=== PATIENT | male | born 1950 | race Caucasian/White ===

== ENCOUNTER 2020-08-05 15:43 | Outpatient (REF) | payer MEDICARE, SELFPAY ==
[2020-08-10 22:22] LABS: Stone Source KIDNEY STONE
== END 2020-08-05 15:44 | disposition home or self-care (01) ==
LOC: HO.LAB 15:43
PROVIDERS: PCP Internal Medicine; Visit Provider Internal Medicine Hypertension Specialist
DX: I13.10 Hypertensive heart and chronic kidney disease without heart failure, with stage 1 through stage 4 chronic kidney disease, or unspecified chronic kidney disease (principal); N18.2 Chronic kidney disease, stage 2 (mild)
CPT/HCPCS: 82365; 88300

== ENCOUNTER 2022-05-25 09:53 | Outpatient (REF) | payer MEDICARE, SELFPAY ==
--- NOTE | ~2022-05-25 | US_ITS ---
EXAMINATION: US RETROPERITONEAL LIMITED (RENAL ONLY) CLINICAL INFORMATION: Hematuria. COMPARISON: Renal ultrasound 06/04/2020. CT abdomen and pelvis 05/03/2020. TECHNIQUE: Real-time imaging of the kidneys. FINDINGS: RIGHT KIDNEY: 12.6 x 4.1 x 6.0 cm (SAG x AP x TRV). The kidney is normal in size, contour, and echogenicity. Renal cortical thickness is normal. There is mild right hydronephrosis. There is a large staghorn stone in the right UPJ region measuring 4.1 x 1.4 x 3.2 cm. There are stones or cluster of stones forming casts of the calyces largest in the upper pole measuring 2.8 x 0.9 x 3 5 cm. The visualized right proximal ureter is dilated measuring 1 cm. There may be small stones seen in the right proximal ureter. No renal mass. LEFT KIDNEY: 12.4 x 5.0 x 5.9 cm (SAG x AP x TRV). The kidney is normal in size, contour, and echogenicity. Renal cortical thickness is normal. There is a cluster of stones in the lower pole measuring 3 x 1.1 x 2.8 cm and cluster of stones in the midpole measuring 0.9 x 1.1 x 0.5 cm. No renal mass or hydronephrosis. US/US renal BI IMPRESSION: Bilateral renal stones, right greater than left, including large staghorn stone in the right UPJ region. The visualized right proximal ureter is also dilated and may contain stones.
== END 2022-05-25 09:54 | disposition home or self-care (01) ==
LOC: HO.HMGCX 09:53
PROVIDERS: Visit Provider Internal Medicine
DX: R31.9 Hematuria, unspecified (principal)
CPT/HCPCS: 76775

== ENCOUNTER → 2022-06-02 14:44 | Outpatient (BNVA) | payer MEDICARE, SELFPAY | PROVIDERS: PCP Internal Medicine; Visit Provider Urology | DX: N20.0 Calculus of kidney (principal) | CPT/HCPCS: Q3014 ==

== ENCOUNTER → 2022-06-30 13:32 | Outpatient (BNVA) | payer MEDICARE, SELFPAY | PROVIDERS: PCP Internal Medicine; Visit Provider Urology | DX: N20.0 Calculus of kidney (principal); N21.0 Calculus in bladder | CPT/HCPCS: Q3014 ==

== ENCOUNTER → 2022-08-23 11:35 | Outpatient (BNVA) | payer MEDICARE, SELFPAY | PROVIDERS: PCP Internal Medicine; Visit Provider Urology | DX: N20.2 Calculus of kidney with calculus of ureter (principal) | CPT/HCPCS: Q3014 ==

== ENCOUNTER 2022-12-07 15:34 | Outpatient (REF) | payer MEDICARE, SELFPAY ==
[2022-12-07 15:57] LABS: Uric Acid 9.9 mg/dL (3.4-7.0)
== END 2022-12-07 15:35 | disposition home or self-care (01) ==
LOC: HO.LNP 15:34
PROVIDERS: Visit Provider Internal Medicine
DX: M1A.9XX1 Chronic gout, unspecified, with tophus (tophi) (principal)
CPT/HCPCS: 84550

== ENCOUNTER 2023-09-11 15:23 | Outpatient (REF) | payer MEDICARE, SELFPAY ==
[2023-09-11 15:51] LABS: Blood Urea Nitrogen 24 mg/dL (9-16); Estimated Glomerular Filt Rate 46; Uric Acid 7.4 mg/dL (3.4-7.0)
== END 2023-09-11 15:24 | disposition home or self-care (01) ==
LOC: HO.LNP 15:23
PROVIDERS: Visit Provider Internal Medicine
DX: M1A.9XX1 Chronic gout, unspecified, with tophus (tophi) (principal)
CPT/HCPCS: 82565; 84520; 84550

== ENCOUNTER 2024-01-03 15:41 | Outpatient (AMB) | payer MEDICARE, SELFPAY ==
--- NOTE | 2024-01-03 15:41 | HO.NEPHOV_ITS ---
HPI HPI Comments History of Present Illness Details Javad is a middle-aged man with longstanding hypertension and nephrolithiasis with CKD. Overall blood pressure has been well controlled. History of hyperuricemia and tophi. He is currently on allopurinol. [facility] Medical History Acquired thrombocytopenia COVID-19 vaccine series completed Elevated BUN Gross hematuria HTN (hypertension) PAF (paroxysmal atrial fibrillation) Skin lesion Thyroid nodule Surgical History Hx of cystoscopy H/O colonoscopy Vital Signs 01/03/24 15:42 Height 6 ft 4 in Weight 223 lb BMI 27.1 BP 130/70 Blood Pressure Location Rt brachial Position Sitting Pulse 84 Pulse Source Pulse Oximeter Pulse Oximetry (%) 98 Oxygen Delivery Method Room Air Physical Exam Vital Signs: Last Vital Signs Pulse 84 01/03/24 15:42 BP 130/70 01/03/24 15:42 Pulse Ox 98 01/03/24 15:42 Oxygen Delivery Method Room Air 01/03/24 15:42 BMI result Body Mass Index 27.1 Const General: comfortable Nutritional Appearance: well nourished Orientation/consciousness: patient oriented x3 HEENT Head: No normal to inspection Mouth: moist mucous membranes Neck Neck: Yes supple and Yes no JVD Resp Auscultation: clear to auscultation bilaterally, no rales and rub present Cardio Jugular venous distension: no JVD Palpation: no palpable S3 and no palpable S4 Heart sounds: no rubs GI Palpation (GI): Soft to palpation and nontender Percussion: No Fluid wave present General: Yes no CVA tenderness Back/Spine/Pelvis Back: no CVA tenderness Skin General skin exam: no rashes or lesions noted Neuro General: patient oriented x3 Extrem General: Yes no pedal edema and No clubbing Assessment & Plan Assessment & Plan (1) HTN (hypertension): Code(s): I10 - Essential (primary) hypertension (2) CKD (chronic kidney disease): Code(s): N18.9 - Chronic kidney disease, unspecified Plan 73-year-old man with hypertension nephrolithiasis and CKD. Stable CKD 3. Renal function close to baseline. Goal is to slow the portion disease Continue overt nephrotoxic agents. Maintain blood pressure less than 130/80. At present blood pressure is well controlled. Encouraged him to stand low- sodium diet. Tophi. Continue the allopurinol Discussed low purine diet. Orders: Orders Comprehensive Met. Panel 5 Months N18.9 - Chronic kidney disease, unspecified Parathyroid Hormone Intact 5 Months N18.9 - Chronic kidney disease, unspecified Creatinine Urine 5 Months N05.9 - Unspecified nephritic syndrome with unspecified morphologic changes, N18.9 - Chronic kidney disease, unspecified Complete Blood Count Auto Diff 5 Months N18.30 - Chronic kidney disease, stage 3 unspecified, N18.9 - Chronic kidney disease, unspecified Uric Acid 5 Months N18.9 - Chronic kidney disease, unspecified Total Protein Urine Random 5 Months N18.9 - Chronic kidney disease, unspecified Coding Level of Care Code Est Pt Level 4 (65789) Diagnoses HTN (hypertension) I10 CKD (chronic kidney disease) N18.9 Results Reviewed Nephrology Results: BUN 24 mg/dL (9-16) H 09/11/23 Creatinine 1.50 mg/dL (0.5-1.4) H 09/11/23 Renal US 05/25/22
[2024-01-03 15:42] VITALS: BP 130/70; PULSE 84; O2SAT 98; BMI 27.1
== END 2024-01-03 15:57 | disposition home or self-care (01) ==
PROVIDERS: PCP Internal Medicine; Visit Provider Internal Medicine Hypertension Specialist
DX: I12.9 Hypertensive chronic kidney disease with stage 1 through stage 4 chronic kidney disease, or unspecified chronic kidney disease (principal); N18.9 Chronic kidney disease, unspecified
CPT/HCPCS: 99214

== ENCOUNTER → 2024-01-03 15:41 | Outpatient (BNVA) | payer MEDICARE, SELFPAY | PROVIDERS: PCP Internal Medicine; Visit Provider Internal Medicine Hypertension Specialist | DX: I12.9 Hypertensive chronic kidney disease with stage 1 through stage 4 chronic kidney disease, or unspecified chronic kidney disease (principal); N18.9 Chronic kidney disease, unspecified | CPT/HCPCS: 99212 ==

== ENCOUNTER 2024-02-12 13:37 | Outpatient (REF) | payer MEDICARE, SELFPAY ==
[2024-02-12 13:40] LABS: MANUAL DIFF FLAG NO
[2024-02-12 13:55] LABS: Basophils Absolute Auto 0.1 X10*3/uL (0.0-0.2); Basophils Percent Auto 1.7 % (0-2); Eosinophils Absolute Auto 0.4 X10*3/uL (0.0-0.4); Eosinophils Percent Auto 6.3 % (0-4); Hematocrit 43.6 % (42.0-52.0); Hemoglobin 14.8 g/dl (14.0-18.0); Imm Gran Abs Auto 0.25 X10*3/uL (0.00-0.03); Imm Gran Pct Auto 4.3 % (0.0-0.4); Lymphocytes Absolute Auto 0.9 X10*3/uL (1.2-4.9); Lymphocytes Percent Auto 15.6 % (20-40); Mean Corpuscular HGB Conc 33.9 g/dl (31.0-36.0); Mean Corpuscular Hemoglobin 30.2 pg (27.0-33.0); Monocytes Absolute Auto 0.7 X10*3/uL (0.1-1.2); Monocytes Percent Auto 11.3 % (2-11); Neutrophils Absolute Auto 3.5 x10*3/uL (2.0-8.3); Neutrophils Percent Auto 60.8 % (45-73); Platelet Count 211 X10*3/uL (160-400); Red Cell Distribution Width 14.4 % (11.0-16.0); White Blood Count 5.8 X10*3/uL (4.8-10.8)
[2024-02-12 16:33] LABS: Alanine Aminotransferase 20 U/L (0-40); Albumin Level 4.3 g/dL (3.5-5.0); Alkaline Phosphatase 76 U/L (39-117); Anion Gap 13 (12-20); Aspartate Amino Transferase 21 U/L (5-37); Bilirubin Total 1.1 mg/dL (0.0-1.0); Blood Urea Nitrogen 16 mg/dL (9-16); Calcium 9.9 mg/dL (8.4-10.2); Carbon Dioxide 25 mmol/L (22-29); Chloride 107 mmol/L (96-108); Estimated Glomerular Filt Rate 59; Glucose Fasting 120 mg/dL (60-99); Potassium 4.9 mmol/L (3.3-5.1); Sodium 140 mmol/L (135-145); Total Protein 7.2 g/dL (6.5-8.0)
== END 2024-02-12 13:38 | disposition home or self-care (01) ==
LOC: HO.LNP 13:37
PROVIDERS: Visit Provider Internal Medicine
DX: K86.89 Other specified diseases of pancreas (principal)
CPT/HCPCS: 80053; 84443; 85025

== ENCOUNTER 2024-03-31 11:34 | Outpatient (AMB) | payer MEDICARE, SELFPAY ==
[2024-03-31 11:38] VITALS: BP 124/72; PULSE 71; O2SAT 98; BMI 24.1
--- NOTE | 2024-03-31 11:38 | HO.NEPHOV_ITS ---
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: No Accompanied by: Self / Same As Patient Allergies Penicillins [PENICILLINS] Allergy (Intermediate, Verified 03/31/24 11:40) Rash clindamycin [CLINDAMYCIN] Adverse Reaction (Intermediate, Verified 03/31/24 11:40) DIARRHEA losartan Adverse Reaction (Intermediate, Verified 03/31/24 11:40) hyperkalemia Medication List - Last Reconciled 03/31/24 by Umberto Gutierrez MD allopurinol 100 mg PO DAILY cinacalcet 30 mg PO DAILY diltiazem HCl CD 240 mg PO DAILY ferrous sulfate 325 mg PO DAILY metoprolol succinate ER 200 mg PO DAILY tamsulosin 0.4 mg PO DAILY timolol maleate 0.5% 1 drp ophthalmic (eye) QAM HPI Comments Details: Javad is a middle-aged man with longstanding hypertension and nephrolithiasis with CKD. Overall blood pressure has been well controlled. History of hyperuricemia and tophi. He is currently on allopurinol. Recently had another episode of gout. He was seen in [facility] and had a course of prednisone. [facility] Medical History Acquired thrombocytopenia COVID-19 vaccine series completed Elevated BUN Gross hematuria HTN (hypertension) PAF (paroxysmal atrial fibrillation) Skin lesion Thyroid nodule Surgical History Hx of cystoscopy H/O colonoscopy Physical Exam Vital Signs: Last Vital Signs Pulse 71 03/31/24 11:38 BP 124/72 03/31/24 11:38 Pulse Ox 98 03/31/24 11:38 Oxygen Delivery Method Room Air 03/31/24 11:38 BMI result Body Mass Index 24.1 Const General: comfortable Nutritional Appearance: well nourished Orientation/consciousness: patient oriented x3 HEENT Head: No normal to inspection Mouth: moist mucous membranes Neck Neck: Yes supple and Yes no JVD Resp Auscultation: clear to auscultation bilaterally, no rales and rub present Cardio Jugular venous distension: no JVD Palpation: no palpable S3 and no palpable S4 Heart sounds: no rubs GI Palpation (GI): Soft to palpation and nontender Percussion: No Fluid wave present General: Yes no CVA tenderness Back/Spine/Pelvis Back: no CVA tenderness Skin General skin exam: no rashes or lesions noted Neuro General: patient oriented x3 Extrem General: Yes no pedal edema and No clubbing Results Reviewed Nephrology Results: Hgb 14.8 g/dl (14.0-18.0) 02/12/24 WBC 5.8 X10*3/uL (4.8-10.8) 02/12/24 Plt Count 211 X10*3/uL (160-400) 02/12/24 Sodium 140 mmol/L (135-145) 02/12/24 Potassium 4.9 mmol/L (3.3-5.1) 02/12/24 Chloride 107 mmol/L (96-108) 02/12/24 Carbon Dioxide 25 mmol/L (22-29) 02/12/24 BUN 16 mg/dL (9-16) 02/12/24 Creatinine 1.21 mg/dL (0.5-1.4) 02/12/24 Calcium 9.9 mg/dL (8.4-10.2) 02/12/24 Assessment & Plan Assessment & Plan (1) HTN (hypertension): Code(s): I10 - Essential (primary) hypertension Category: Medical (2) CKD (chronic kidney disease): Code(s): N18.9 - Chronic kidney disease, unspecified Category: Medical Plan 73-year-old man with hypertension nephrolithiasis and CKD. Stable CKD 3. Renal function close to baseline. Goal is to slow the portion disease Continue overt nephrotoxic agents. Maintain blood pressure less than 130/80. At present blood pressure is well controlled. Encouraged him to stand low- sodium diet. Tophi. Continue the allopurinol Discussed low purine diet. Gave a prescription for colchicine 0.6 mg total of 3 tablets. Asked him to take 1 tablet if he has an episode of gout and call me promptly Medications: New cinacalcet 30 mg PO DAILY 30 tabs 4RF colchicine Take 1 tab for acute gout attack and call MD 0.6 mg PO .PRN 3 caps 0RF Gout Coding Level of Care Code Est Pt Level 4 (01741) Diagnoses HTN (hypertension) I10 CKD (chronic kidney disease) N18.9
== END 2024-03-31 11:56 | disposition home or self-care (01) ==
PROVIDERS: PCP Internal Medicine; Visit Provider Internal Medicine Hypertension Specialist
DX: I12.9 Hypertensive chronic kidney disease with stage 1 through stage 4 chronic kidney disease, or unspecified chronic kidney disease (principal); N18.9 Chronic kidney disease, unspecified
CPT/HCPCS: 99214

== ENCOUNTER → 2024-03-31 11:34 | Outpatient (BNVA) | payer MEDICARE, SELFPAY | PROVIDERS: PCP Internal Medicine; Visit Provider Internal Medicine Hypertension Specialist | DX: I12.9 Hypertensive chronic kidney disease with stage 1 through stage 4 chronic kidney disease, or unspecified chronic kidney disease (principal); N18.9 Chronic kidney disease, unspecified | CPT/HCPCS: 99212 ==

== ENCOUNTER 2024-04-03 11:01 | Outpatient (REF) | payer MEDICARE, SELFPAY ==
[2024-04-03 11:46] LABS: Appearance Urine Cloudy; Color Urine Yellow; Glucose Urine UA Negative (Negative); Leukocyte Esterase Urine Negative (Negative); Nitrite Urine Negative (Negative); PH 5.5 (5.0-9.0); UMIC TRIGGER UACC YES; Urine Blood Moderate (2+) (Negative); Urine Ketones Negative (Negative); Urine Protein 30 (1+) mg/dL (Neg-Trace)
[2024-04-03 11:48] LABS: Hematocrit 44.3 % (42.0-52.0); Hemoglobin 14.9 g/dl (14.0-18.0); Mean Corpuscular HGB Conc 33.6 g/dl (31.0-36.0); Mean Corpuscular Hemoglobin 30.2 pg (27.0-33.0); Mean Corpuscular Volume 89.9 fL (80.0-98.0); Mean Platelet Volume 11.2 fL (9.4-12.4); Platelet Count 152 X10*3/uL (160-400); Red Blood Count 4.93 X10*6/uL (4.60-5.80); Red Cell Distribution Width 15.9 % (11.0-16.0); White Blood Count 6.8 X10*3/uL (4.8-10.8)
[2024-04-03 11:56] LABS: Bacteria Urine None Seen (None Seen); Calcium Oxalate Crystals Urine Present; Hyaline Casts Urine 0-2 /LPF (0-2); Other Crystals Urine Present; WBC Urine 0-5 /HPF (0-5)
[2024-04-03 12:06] LABS: Alanine Aminotransferase 26 U/L (0-40); Alkaline Phosphatase 66 U/L (39-117); Anion Gap 13 (12-20); Aspartate Amino Transferase 24 U/L (5-37); Blood Urea Nitrogen 16 mg/dL (9-16); Carbon Dioxide 25 mmol/L (22-29); Chloride 110 mmol/L (96-108); Cholesterol 124 mg/dL (<200); Estimated Glomerular Filt Rate 59; Glucose Fasting 103 mg/dL (60-99); HDL Cholesterol 35 mg/dL (>40); Iron 65 mcg/dL (45-160); LDL Cholesterol Calculated 66 mg/dL (<100); Percent Iron Saturation 33 % (15-50); Potassium 4.2 mmol/L (3.3-5.1); Sodium 144 mmol/L (135-145); Total Iron Binding Capacity 195 mcg/dL (228-428); Total Protein 6.3 g/dL (6.5-8.0); Triglycerides 119 mg/dL (<150); Unsaturated Iron Binding 130 ug/dL
[2024-04-03 12:10] LABS: Band Neutrophils Percent 4 % (3-5); Basophils Abs Manual 0.1 X10*3/uL (0.0-0.2); Basophils Percent Manual 1 % (0-2); Eosinophils Absolute Manual 0.2 X10*3/uL (0.0-0.4); Eosinophils Percent Manual 3 % (0-4); Lymphocytes Percent Manual 14 % (20-40); Monocytes Absolute Manual 0.7 X10*3/uL (0.1-1.2); Monocytes Percent Manual 11 % (2-11); Myelocytes Absolute 0.4 X10*/uL; Myelocytes Percent 6 %; Neutrophils Absolute Manual 4.4 X10*3/uL (2.0-8.3); Neutrophils Percent Manual 61 % (45-73)
[2024-04-03 12:20] LABS: TSH reflex Free T4 1.72 uIU/mL (0.32-4.0)
[2024-04-03 12:22] LABS: PSA,Total (Free>4and<10) 4.06 ng/mL (0.00-4.00)
[2024-04-03 12:23] LABS: Large Platelet PRESENT; Platelet Estimate NORMAL (NORMAL); Platelet Morphology Comment NOTED; RBC Morphology NORMAL
[2024-04-04 13:38] LABS: Free Prostate Spec Ag 0.7 ng/mL; Percent Free Prostate Spec Ag 19 % (calc) (>25); Prostate Specific Ag Total 3.7 ng/mL (< OR = 4.0)
== END 2024-04-03 11:02 | disposition home or self-care (01) ==
LOC: HO.LNP 11:01
PROVIDERS: Visit Provider Internal Medicine
DX: R73.09 Other abnormal glucose (principal); I10 Essential (primary) hypertension; E78.6 Lipoprotein deficiency; D69.6 Thrombocytopenia, unspecified; E04.1 Nontoxic single thyroid nodule; D50.8 Other iron deficiency anemias; N18.2 Chronic kidney disease, stage 2 (mild); Z12.5 Encounter for screening for malignant neoplasm of prostate
CPT/HCPCS: 80053; 80061; 81001; 83540; 84153; 84154; 84443; 85007; 85027

== ENCOUNTER 2024-06-17 14:02 | Outpatient (AMB) | payer MEDICARE, SELFPAY ==
[2024-06-17 14:03] VITALS: BP 110/80; PULSE 79; O2SAT 97; BMI 24.6
--- NOTE | 2024-06-17 14:03 | HO.NEPHOV ---
Vital Signs 06/17/24 14:03 Height 6 ft 4 in Weight 202 lb BMI 24.6 BP 110/80 Blood Pressure Location Rt brachial Position Sitting Pulse 79 Pulse Source Pulse Oximeter Pulse Oximetry (%) 97 Oxygen Delivery Method Room Air Intake Visit Reasons: CKD /5 MO FU/ LVM International Logistics Coordinator Required: No Accompanied by: Self / Same As Patient Allergies Penicillins [PENICILLINS] Allergy (Intermediate, Verified 06/17/24 14:05) Rash clindamycin [CLINDAMYCIN] Adverse Reaction (Intermediate, Verified 06/17/24 14:05) DIARRHEA losartan Adverse Reaction (Intermediate, Verified 06/17/24 14:05) hyperkalemia Medication List - Last Reconciled 06/17/24 by Umberto Gutierrez MD allopurinol 100 mg PO DAILY cinacalcet 30 mg PO DAILY colchicine 0.6 mg PO .PRN diltiazem HCl CD 240 mg PO DAILY ferrous sulfate 325 mg PO DAILY metoprolol succinate ER 200 mg PO DAILY tamsulosin 0.4 mg PO DAILY timolol maleate 0.5% 1 drp ophthalmic (eye) QAM HPI Comments Details: Javad is a middle-aged man with longstanding hypertension and nephrolithiasis with CKD. Overall blood pressure has been well controlled. History of hyperuricemia and tophi. He is currently on allopurinol. Recently had another episode of gout. He was seen in [facility] and had a course of prednisone. [facility] Medical History Acquired thrombocytopenia COVID-19 vaccine series completed Elevated BUN Gross hematuria HTN (hypertension) PAF (paroxysmal atrial fibrillation) Skin lesion Thyroid nodule Surgical History Hx of cystoscopy H/O colonoscopy Physical Exam Vital Signs: Last Vital Signs Pulse 79 06/17/24 14:03 BP 110/80 06/17/24 14:03 Pulse Ox 97 06/17/24 14:03 Oxygen Delivery Method Room Air 06/17/24 14:03 BMI result Body Mass Index 24.6 Const General: comfortable; No acute distress Orientation/consciousness: patient oriented x3 Eyes General: appearance normal, both eyes and all related structures Visual Ballesteros: normal visual ballesteros by confrontation Neck Neck: Yes supple and Yes no JVD Resp Effort & Inspection: normal respiratory effort and respiratory effort not decreased Auscultation: rhonchi Cardio Palpation: no palpable S3 and no palpable S4 Heart sounds: no rubs GI Inspection: Yes normal to inspection Palpation (GI): Soft to palpation Percussion: Yes normal to percussion Auscultation: normal bowel sounds General: Yes no CVA tenderness Back/Spine/Pelvis Back: no CVA tenderness Skin General skin exam: no petechiae and no purpura Neuro General: patient oriented x3 and no focal motor deficits Extrem General: No clubbing and No edema Results Reviewed Nephrology Results: Hgb 14.9 g/dl (14.0-18.0) 04/03/24 WBC 6.8 X10*3/uL (4.8-10.8) 04/03/24 Plt Count 152 X10*3/uL (160-400) L 04/03/24 Sodium 144 mmol/L (135-145) 04/03/24 Potassium 4.2 mmol/L (3.3-5.1) 04/03/24 Chloride 110 mmol/L (96-108) H 04/03/24 Carbon Dioxide 25 mmol/L (22-29) 04/03/24 BUN 16 mg/dL (9-16) 04/03/24 Creatinine 1.21 mg/dL (0.5-1.4) 04/03/24 Calcium 9.0 mg/dL (8.4-10.2) 04/03/24 Urine Protein 30 (1+) mg/dL (Neg-Trace) H 04/03/24 Assessment & Plan Assessment & Plan (1) HTN (hypertension): Code(s): I10 - Essential (primary) hypertension Category: Medical (2) CKD (chronic kidney disease): Code(s): N18.9 - Chronic kidney disease, unspecified Category: Medical Plan 73-year-old man with hypertension nephrolithiasis and CKD. Stable CKD 3. Renal function close to baseline. Goal is to slow the portion disease Continue overt nephrotoxic agents. Maintain blood pressure less than 130/80. At present blood pressure is well controlled. Encouraged him to stand low-sodium diet. Tophi. Continue the allopurinol Discussed low purine diet. Gave a prescription for colchicine 0.6 mg total of 3 tablets. Asked him to take 1 tablet if he has an episode of gout and call me promptly Mild thrombocytopenia- ? due to allopurinol Renal stone Follows with Orders: Orders Basic Metabolic Panel 6 Months N18.9 - Chronic kidney disease, unspecified Uric Acid 6 Months N18.9 - Chronic kidney disease, unspecified Coding Level of Care Code Est Pt Level 4 (91818) Diagnoses HTN (hypertension) I10 CKD (chronic kidney disease) N18.9
== END 2024-06-17 14:21 | disposition home or self-care (01) ==
PROVIDERS: PCP Internal Medicine; Visit Provider Internal Medicine Hypertension Specialist
DX: I12.9 Hypertensive chronic kidney disease with stage 1 through stage 4 chronic kidney disease, or unspecified chronic kidney disease (principal); N18.9 Chronic kidney disease, unspecified
CPT/HCPCS: 99214

== ENCOUNTER → 2024-06-17 14:02 | Outpatient (BNVA) | payer MEDICARE, SELFPAY | PROVIDERS: PCP Internal Medicine; Visit Provider Internal Medicine Hypertension Specialist | DX: I12.9 Hypertensive chronic kidney disease with stage 1 through stage 4 chronic kidney disease, or unspecified chronic kidney disease (principal); N18.30 Chronic kidney disease, stage 3 unspecified; N20.0 Calculus of kidney | CPT/HCPCS: 99212 ==

== ENCOUNTER 2024-12-17 09:45 | Outpatient (REF) | payer MEDICARE, SELFPAY ==
--- OUTSIDE RECORDS SUMMARY | 2024-12-17 10:08 | XMS_ITS | Patient Health Record ---
Author Organization [facility] Address [address] [place] [phone] Care Team Providers Care Rib Puller Name Role Phone Svetlana SHARIF, Jass Primary Care Provider Vikas Quijano [phone] ALLERGIES Allergen (clinical drug ingredient) Drug/Non Drug Allergy documented on EMR Reaction Allergy Type Onset Date Status Penicillin Unknown Drug Allergy Active REASON FOR REFERRAL No Information MEDICATIONS Medication SIG (Take, Route, Frequency, Duration) Notes Start Date End Date Status Timolol Maleate 0.5 % (DAILY) 1 drop into affected eye Ophthalmic Once a day Active hydroCHLOROthiazide 12.5 MG 1 capsule in the morning Orally Once a day for 30 day(s) Active Tylenol Extra Strength 500 MG 2tablet as needed Orally every 6 hrs PRN Active Triamcinolone Acetonide 0.1 % 1 application Externally Two times a Week Active Allopurinol 100 MG 1 tablet Orally Once a day for 30 day(s) Active amLODIPine Besy-Benazepril HCl 10-40 MG Orally Not-Taking Acetaminophen 500 MG 1 capsule as needed Orally every 6 hrs as needed Active Eliquis 5 MG 1 tablet Orally bid Not-Taking Metoprolol Succinate ER 200 MG 1 tablet Orally Once a day Active Cinacalcet HCl 90 MG 1 tablet with food or after a meal Orally Once a day for 30 day(s) Active Tamsulosin HCl 0.4 MG TAKE 1 TABLET BY MOUTH AT BEDTIME Oral for 30 Active dilTIAZem HCl ER Coated Beads 240 MG TAKE 1 CAPSULE BY MOUTH EVERY DAY Oral for 30 Active Ferrous Sulfate Dried 200 (65 Fe) MG as directed Orally 03/31/2020 Active IMMUNIZATIONS Vaccine Route Administration Date Status Comme nts Influenza Unknown 07/29/2019 Administered Influenza Unknown 06/29/2020 Administered Influenza Unknown 08/21/2023 Administered SOCIAL HISTORY Tobacco Use: Social History Observation Description Date Details (start date - stop date) Never Smoker NA - NA Sex Assigned At : Social History Observation Description Sex Assigned At Unknown Tobacco Use/Smoking Question Answer Notes Patient is a nonsmoker Alcohol Screen Question Answer Notes Did you have a drink containing alcohol in the p ast year? No Points 0 Interpretation Negative PROBLEMS Problem Type ICD Code Onset Dates Problem Status W/U Status Risk SNOMED Code Notes Problem Blood in stool (K92.1) Active confirmed 60623638 Problem Rectal bleed (K62.5) Active confirmed 95706480 Problem Pancreatic cyst (K86.2) Active confirmed 46826199 Problem Pancreas cyst (K86.2) Active confirmed 86002620 Problem Tubular adenoma of colon (D12.6) Active confirmed 381168930 Problem Heme + stool (R19.5) Active confirmed Abnormal feces (165551251) VITAL SIGNS Temperature 98.7 degrees Fahrenheit 04/23/2024 Blood pressure diastolic 00 mm Hg 04/23/2024 Height 76 in 04/23/2024 Blood pressure systolic 000 mm Hg 04/23/2024 Weight 202 lb 2 oz lbs 04/23/2024 BMI 24.60 kg/m2 04/23/2024 Encounters Encounter Location Date Provider Diagnosis [facility] [address] [place] [phone] 08/15/2024 Vikas Garcia [facility] [address] [place] [phone] 04/23/2024 Vikas Garcia Heme + stool R19.5 ; Tubular adenoma of colon D12.6 and Pancreatic cyst K86.2 [facility] [address] [place] [phone] 08/01/2024 Vikas Garcia ASSESSMENTS Encounter Date Diagnosis Assessment Notes Treatment Notes Treatment Clinical Notes 04/23/2024 Tubular adenoma of colon (ICD-10 - D12.6) 04/23/2024 Heme + stool (ICD-10 - R19.5) Do one Fleets enema the night before the colonoscopy 04/23/2024 Pancreatic cyst (ICD-10 - K86.2) Need MRI report from Dr. Mota PLAN OF TREATMENT Pending Test Test Name Order Date BUN 04/05/2021 BUN 07/02/2020 CREATININE 04/05/2021 CREATININE 07/02/2020 CA 19-9 03/31/2020 MRI ABD W&WO CONTRAST 07/02/2020 MRI ABD W&WO CONTRAST 04/05/2021 Future Test Test Name Order Date COLONOSCOPY 02/06/2018 COLONOSCOPY 04/23/2024 Insurance Providers Payer Name Payer Address Payer Phone Subscriber Number Group Number Insured Name Patient Relationship to Insured Coverage Start Date Coverage End Date MEDICARE OF [place] [address] [place] [address] [id number] RACHAEL HAMILTON Self - patient is the insured [employer] ATT[employer] CLAIMS [address] [place] [address] [phone] [id number] RACHAEL HAMILTON Self - patient is the insured MEDICAL (GENERAL) HISTORY Medical History History ICD Code Denies NC,DM,CVA,Lung disease Hypertension Stage 2 kidney disease--sees Dr. 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 There was no apparent communication with the main pancreatic duct and the main pancreatic duct was not dilated. A MRI was unchanged in 06/2020. Normal Ca 19-9 level in 03/2020. Gallstones seen on 12/2019 MRI Kidney stones episodes of gout Surgical History Surgery Date(Month/Year) Appendectomy 1963 Inguinal right hernia repair 1966 Surgery as above for the B-c ell lymphoma with a right ileocolectomy and ileostomy in August of 2018--he had presented with a small bowel obstruction
--- OUTSIDE RECORDS SUMMARY | 2024-12-17 10:08 | XMS_ITS ---
Author Organization [facility] Address [address] [place] [phone] Care Team Providers Care Sea Shell Gatherer Name Role Phone Jass Mota MD Primary Care Provider Vikas Quijano [phone] ALLERGIES Allergen (clinical drug ingredient) Drug/Non Drug Allergy documented on EMR Reaction Allergy Type Onset Date Status Penicillin Unknown Drug Allergy Active REASON FOR VISIT Patient presents today for POSITIVE STOOL MEDICATIONS Medication SIG (Take, Route, Frequency, Duration) Notes Start Date End Date Status Timolol Maleate 0.5 % (DAILY) 1 drop into affected eye Ophthalmic Once a day Active Tylenol Extra Strength 500 MG 2tablet as needed Orally every 6 hrs PRN Active Triamcinolone Acetonide 0.1 % 1 application Externally Two times a Week Active amLODIPine Besy-Benazepril HCl 10-40 MG Orally Not-Taking Eliquis 5 MG 1 tablet Orally bid Not-Taking hydroCHLOROthiazide 12.5 MG 1 capsule in the morning Orally Once a day for 30 day(s) Active Metoprolol Succinate ER 200 MG 1 tablet Orally Once a day Active Tamsulosin HCl 0.4 MG TAKE 1 TABLET BY MOUTH AT BEDTIME Oral for 30 Active dilTIAZem HCl ER Coated Beads 240 MG TAKE 1 CAPSULE BY MOUTH EVERY DAY Oral for 30 Active Ferrous Sulfate Dried 200 (65 Fe) MG as directed Orally 03/31/2020 Active Allopurinol 100 MG 1 tablet Orally Once a day for 30 day(s) Active Acetaminophen 500 MG 1 capsule as needed Orally every 6 hrs as needed Active Cinacalcet HCl 90 MG 1 tablet with food or after a meal Orally Once a day for 30 day(s) Active SOCIAL HISTORY Tobacco Use: Social History Observation [...] W/U Status Risk SNOMED Code Notes Problem Heme + stool (R19.5) Active confirmed Abnormal feces (692805943) VITAL SIGNS BMI 24.60 kg/m2 04/23/2024 Blood pressure systolic 000 mm Hg 04/23/20 24 Blood pressure diastolic 00 mm Hg 024 Height 76 in 04/23/2024 Temperature 98.7 degrees Fahrenheit 04/23/20 24 Weight 202 lb 2 oz lbs 04/23/2024 Encounters Encounter Location Date Provider Diagnosis [facility] [address] [place] [phone] 04/23/2024 Vikas Garcia Heme + stool R19.5 ; Tubular adenoma of colon D12.6 and Pancreatic cyst K86.2 ASSESSMENTS Encounter Date Diagnosis Assessment Notes Treatment Notes Treatment Clinical Notes 04/23/2024 Heme + stool (ICD-10 - R19.5) Do one Fleets enema the night before the colonoscopy 04/23/2024 Tubular adenoma of colon (ICD-10 - D12.6) 04/23/2024 Pancreatic cyst (ICD-10 - K86.2) Need MRI report from Dr. Mota PLAN OF TREATMENT Treatment Notes Assessment Notes Heme + stool Do one Fleets enema the night before the colonoscopy Pancreatic cyst Need MRI report from Dr. Mota Future Test Test Name Order Date COLONOSCOPY 04/23/2024 Next Appt Details Follow Up: prn, Reason: Progress Notes * Examination Category Sub-Category Detail Notes General Examination GENERAL APPEARANCE: pleasant , well nourished, well developed, in no acute distress HEAD: EYES: sclera non-icteric EARS: NOSE: THROAT: NECK/THYROID: no cervical lymphade nopathy, neck supple HEART: S1, S2 normal CHEST: LUNGS: clear to auscultatio n bilaterally ABDOMEN: normal bowel sounds, no guarding or rigidity, no guarding or rigidity, no masses palpable, soft, nontender, nondistended NEUROLOGIC: alert and oriented SKIN: nonjaundiced, no spi nadia angiomata EXTREMITIES: no edema PERIPHERAL PULSES: BACK: BREASTS: MUSCULOSKELETAL: MALE GENITOURINARY: LYMPH NODES: RECTAL EXAM: FEMALE GENITOURINARY: ORAL CAVITY: mucosa moist
--- OUTSIDE RECORDS SUMMARY | 2024-12-17 10:08 | XMS_ITS ---
Author Organization [facility] Address [address] [place] [phone] Care Team Providers Care Tile Applicator Name Role Phone Jass Mota MD Primary Care Provider Vikas Quijano [phone] REASON FOR VISIT cancelling aug 15 colonoscopy Encounters Encounter Location Date Provider Diagnosis [facility] [address] [place] [phone] 08/01/2024 Vikas Garcia PLAN OF TREATMENT No Information
--- OUTSIDE RECORDS SUMMARY | 2024-12-17 10:08 | XMS_ITS ---
Author Organization Jass Mota MD Address [address] [place] [phone] Care Team Providers Care Hospice Community Liaison Name Role Phone Jass Mota Primary Care Provider REASON FOR VISIT Ostomy supply order Encounters Encounter Location Date Provider Diagnosis Jass Mota MD 10 [facility] [address] [place] [phone] 06/26/2024 Jass Mota Plan Of Treatment Next Appt Details Provider Name:Jass grullon, 01/12/2025 01:30:00 PM, [address] [place] [address], [address] [place] [address], [phone], Provider Name:Jass grullon, 04/06/2025 07:45:00 AM, [address] [place] [address], [address], [phone], Provider Name:Jass Braulio Shola grullon, 04/13/2025 01:00:00 PM, [address], [address], [place], [phone], Progress Notes * RACHAEL HAMILTONDOB:1950 (73 yo M)Acc No.[id number]:06/26/2024 Patient:?RACHAEL HAMILTON :1950???Age:73 Y???Sex:Male Address:[address] [place] [address] [place], [address] * true * Date:? Generated for Ryan asif/Sumanth/eTadrcismitting on:?12/17/2024 10:08 AM EST
--- OUTSIDE RECORDS SUMMARY | 2024-12-17 10:08 | XMS_ITS | Clinical Summary ---
Author Organization [facility] Address [address] [place] [place] [address] Phone Care Team Providers Care Lead Embedded Software Engineer Name Role Phone Jass Mota MD Primary Care Provider Allergies Active Allergy Reactions Criticality Noted Date Comments Penicillin V Other (see comments) 02/23/2021 Medications tamsulosin (FLOMAX) 0.4 MG 24 hr capsule Take 1 capsule by mouth 1 (one) time each day Active timolol (TIMOPTIC) 0.5 % ophthalmic solution 1 Active acetaminophen (TYLENOL) 500 MG tablet 4 (four) times a day Active triamcinolone (KENALOG) 0.1 % cream 1 application Active metoprolol succinate XL (TOPROL-XL) 200 MG 24 hr tablet Take 1 tablet by mouth Active dilTIAZem CD (CARDIZEM CD) 240 MG 24 hr capsuleIndicati ons:Hypertensiv e heart disease without heart failure, not otherwise specified TAKE 1 CAPSULE BY MOUTH 1 TIME EACH DAY. 90 capsule 3 3 Active cinacalcet (SENSIPAR) 30 MG tablet Take 1 tablet (30 mg total) by mouth 1 (one) time each day 90 tablet 3 3 Active Active Problems Problem Noted Date Diagnosed Date Atrial fibrillation 02/02/2022 Cyst of pancreas 02/02/2022 Hematochezia 02/02/2022 Hemorrhage of anus and rectum 02/02/2022 Tubular adenoma of colon 02/02/2022 Anemia of chronic disease 02/23/2021 Essential hypertension 02/23/2021 Hypertensive heart disease without heart failure 02/23/2021 Proteinuria 02/23/2021 Family History Medical History Relation Comments Cancer Mother Relation Status Comments Father Mother Social History Tobacco Use Types Packs/Day Years Used Date Smoking Tobacco: Never Smokeless Tobacco: Never Tobacco Cessation:Counseling Given: Not Answered Alcohol Use Standard Drinks/Week Comments No 0 (1 standard drink = 0.6 oz pur e alcohol) Sex and Gender Information Value Date Recorded Sex Assigned at Not on file Legal Sex Male 4:42 PM EST Gender Identity Not on file Sexual Orientation Not on file Last Filed Vital Signs Vital Sign Reading Time Taken Comments Blood Pressure 126/72 07/19/2023 1:25 PM EDT Pulse 80 07/19/2023 1:25 PM EDT Temperature - - Respiratory Rate - - Oxygen Saturation 99% 07/19/2023 1:25 PM EDT Inhaled Oxygen Concentration - - Weight 95.6 kg (210 lb 12.8 oz) 07/19/2023 1:25 PM EDT Height 193 cm (6' 4 ) 07/19/2023 1:25 PM EDT Body Mass Index 25.66 07/19/2023 1:25 PM EDT Plan of Treatment Health Maintenance Due Date Last Done Comments Colorectal Cancer Screening: Annual FOBT 2001 Colorectal Cancer Screening: Colonoscopy 2001 Colorectal Cancer Screening: Sigmoidoscopy 2001 Influenza Vaccine (#1) 2024 , 08/29/2022, 08/12/2021, Additional history exists Pneumococcal Vaccine: 65+ Years Completed 09/30/2018, 09/30/2018 Hepatitis B Vaccine Aged Out No longe r eligible based on patient's age to complete this topic Insurance [facility] MEDICARE [facility] MEDIC[facility] Care Teams Lead Embedded Software Engineer Relationship Specialty Start Date End Date Jass Mota MD [address] [place], [place] PCP - General 11/08/20
--- OUTSIDE RECORDS SUMMARY | 2024-12-17 10:09 | XMS_ITS ---
Author Organization Jass Mota MD Address [address] [place], [place] [phone] Care Team Providers Care Blending Operator Name Role Phone Jass Mota Primary Care [...] Problem Status W/U Status Risk Notes Problem 13437075 Kidney stones (N20.0) Active confirmed Problem 60951844 Bladder stones (N21.0) Active confirmed Vital Signs Blood pressure systolic 132 mm Hg 07/14/20 24 Blood pressure diastolic 84 mm Hg 024 Height 75 in 07/14/2024 Weight 206 lbs 07/14/2024 BMI 25.75 kg/m2 07/14/2024 weight is up 8 poiunds since 04-10-24 Encounters Encounter Location Date Provider Diagnosis Jass Mota MD [address] [place] [address] [place] [phone] 07/14/2024 Jass Mota Prediabetes R73.09 ; Colon [...] Up: 6 Months, Reason: Provider Name:Jass grullon, 01/12/2025 01:30:00 PM, [address] [place] [address], [address], [phone], Provider Name:Jass grullon, 04/06/2025 07:45:00 AM, [address] [place] [address], Suite [facility], [place], [place], [phone], Provider Name:Jass grullon, 04/13/2025 01:00:00 PM, [address] [place] [address], Suite [facility], [place], [place], [phone], Progress Notes * RACHAEL HAMILTONDOB:1950 (73 yo M)Acc No.[id number]:07/14/2024 Progress Notes Patient:?RACHAEL HAMILTON Provider:?Jass Mota MD :1950???Age:73 Y???Sex:Male Hammad e:07/14/2024 Address:[address] [place] [address] [id number] Subjective: * Chief Complaints: * ???3 month * HPI: ???Symptom(s):? patient is a 73 yo male here for 3 month follow up. is not going to get colonoscopy because he has hernias. * ROS:?General/Constitutional:?Denies?Chills.?Denies?Fatigue.?Denies?Fever.?Denies?Headache.?ENT:?Patient denies?decreased sense of smell , any loss of taste , sore throat.?Denies?Sore throat.?Respiratory:?Denies?Cough.?Denies?Shortness of breath at rest.?Denies?Shortness of breath with exertion.?Gastrointestinal:?Denies?Diarrhea.?Denies?Nausea.?Musculoskeletal:?Patient denies?muscle aches.?Peripheral Vascular:?Patient denies?red and blue toes.? * Medical History:? * Surgical History:? * Hospitalization/Major Diagno stic Procedure:? * Medications:?TakingTriamcino lone Acetonide 0.1 % Cream 1 application Externally [...] reviewed and reconciled with the patient * Allergies:?Penicillin: rashL osartan Potassium: hyperkalemiayes[Allergies Verified] Objective: * Vitals:?Ht: 75, Wt:206, BMI: 25.75, BP:132/84 weight is up 8 poiunds since 04-10-24. * Examination: ???General Examination: ?GENERAL APPEARANCE:? alert, well hydrated, in no distress .?HEAD:? normocephalic.?SKIN:? good turgor.?HEART:?irregularly irregular rhythm.?LUNGS:? no wheezes, rales, rhonchi, good air movement, clear to auscultation bilaterally.? Assessment: * Assessment: 1.?Prediabetes - R73.09 (Alina montes)?2.?Colon cancer screening - Z12.11?3.?Kidney stones - N20.0?4.?Encounter for immunization - Z23?5.?Bladder stones - N21.0?6.?Paroxysmal atrial fibrillation - I48.0? Plan: * Treatment: ? Value Reference Range ?Hemoglobin A1c 5.1 * Cydney Soto 4 02:15:40 PM EDT > ?LAB: Glucose, finger stick* ? Value Reference Range ?Value 97 * Cydney Soto 4 02:04:16 PM EDT > 2.?Colon cancer screening? Notes: have given him a script at his request for [facility] colon cancer screen?? 3.?Kidney stones? Notes: knows that he could damage his kidneys without doing anything about it?? 4.?Bladder stones? Notes: he understands it could lead to bladder cancer??5.?Paroxysmal atrial fibrillation? Notes: won't take eliquis.?? * Immunizations:? Influenza High Dose : 0.5 mL (Dose No:1) (Route: Intramuscular) given by Cydneyisai Soto on Left Deltoid * Procedure Codes:?06921 ASSAY , GLUCOSE, BLOOD QUANT, Modifiers: QW 04845 GLYCATED HEMOGLOBIN TEST, Modifiers: QW 34445 FLU VACC PRSV FREE INC [id number] ADMN FLU VAC NO FEE SCHED SAME DAY * Preventive Medicine:? ??Immunizations:?Influenza?Have you had a flu shot since the most recent June 29??Yes.? * Follow Up:?6 Months * * Sign off status: Completed true * Provider:?Jass Mota MD Date:?0 07/14/2024 Generated for Ryan asif/Sumanth/eTransmitting on:?12/17/2024 10:08 AM EST History and Physical Notes * HPI [...]
--- OUTSIDE RECORDS SUMMARY | 2024-12-17 10:09 | XMS_ITS ---
Author Organization Jass Mota MD Address [address] [place] [phone] Care Team Providers Care Termite Control Representative Name Role Phone Jass Mota Primary Care Provider [phone] REASON FOR VISIT FYI cx colonoscopy 08-15-2024 Encounters Encounter Location Date Provider Diagnosis Jass Mota MD 10 [facility] [address] [place], [place] [phone] 08/05/2024 Jass Mota Plan Of Treatment Next Appt Details Provider Name:Jass grullon, 01/12/2025 01:30:00 PM, [address] [place] [address], [address] [place] [address], [phone], Provider Name:Jass grullon, 04/06/2025 07:45:00 AM, [address] [place] [address], [address], [phone], Provider Name:Jass Braulio Jolley yadi, 04/13/2025 01:00:00 PM, [address], [address], [place], [phone], Progress Notes * RACHAEL HAMILTONDOB:1950 (73 yo M)Acc No.[id number]:08/05/2024 Patient:?RACHAEL HAMILTON :1950???Age:73 Y???Sex:Male Address:[address] [place] [address], [address] * true * Date:? Generated for Ryan asif/Sumanth/eTdarcismitting on:?12/17/2024 10:08 AM EST
--- OUTSIDE RECORDS SUMMARY | 2024-12-17 10:09 | XMS_ITS ---
Author Organization [facility] Address [address] [place] [phone] Care Team Providers Care Medical Support Specialist Name Role Phone Jass Mota MD Primary Care Provider Vikas Quijano [phone] REASON FOR VISIT heme positive stools,tubular adenoma of colon Encounters Encounter Location Date Provider Diagnosis [facility] [address] [place], [place] [phone] 08/15/2024 Vikas Garcia PLAN OF TREATMENT No Information
[2024-12-17 13:55] LABS: Anion Gap 14 (12-20); Blood Urea Nitrogen 26 mg/dL (9-16); Calcium 9.5 mg/dL (8.4-10.2); Carbon Dioxide 21 mmol/L (22-29); Chloride 112 mmol/L (96-108); Estimated Glomerular Filt Rate 42; Glucose Random 100 mg/dL (60-115); Potassium 3.7 mmol/L (3.3-5.1); Sodium 143 mmol/L (135-145); Uric Acid 7.4 mg/dL (3.4-7.0)
== END 2024-12-17 09:46 | disposition home or self-care (01) ==
LOC: HO.HMGCLDS 09:45
PROVIDERS: PCP Internal Medicine; Visit Provider Internal Medicine Hypertension Specialist
DX: N18.9 Chronic kidney disease, unspecified (principal)
CPT/HCPCS: 36415; 80048; 84550

== ENCOUNTER 2024-12-25 14:08 | Outpatient (AMB) | payer MEDICARE, SELFPAY ==
--- NOTE | 2024-12-25 14:10 | HO.NEPHOV_ITS ---
Vital Signs 12/25/24 14:11 Height 6 ft 4 in Weight 210 lb BMI 25.6 BP 126/84 Blood Pressure Location Rt brachial Position Sitting Intake Visit Reasons: Chronic kidney disease/ Conf Pole Classifier Required: No Accompanied by: Self / Same As Patient Allergies Penicillins [PENICILLINS] Allergy (Intermediate, Verified 12/25/24 14:17) Rash clindamycin [CLINDAMYCIN] Adverse Reaction (Intermediate, Verified 12/25/24 14:17) DIARRHEA losartan Adverse Reaction (Intermediate, Verified 12/25/24 14:17) hyperkalemia Medication List - Last Reconciled 12/25/24 by Umberto Gutierrez MD allopurinol 100 mg PO DAILY cinacalcet 30 mg PO DAILY colchicine 0.6 mg PO .PRN diltiazem HCl CD 240 mg PO DAILY ferrous sulfate 325 mg PO DAILY metoprolol succinate ER 200 mg PO DAILY tamsulosin 0.4 mg PO DAILY timolol maleate 0.5% 1 drp ophthalmic (eye) QAM HPI Comments Details: Javad is a 74 yr old man with longstanding hypertension and nephrolithiasis with CKD. Overall blood pressure has been well controlled. History of hyperuricemia and tophi. He is currently on allopurinol. Recently had another episode of gout. He was seen in [facility] and had a course of prednisone. 12/25/24 Overall doing well. No further episodes of gout Not on Indocin Has urinary incontinence for the past week or so [facility] Medical History Acquired thrombocytopenia COVID-19 vaccine series completed Elevated BUN Gross hematuria HTN (hypertension) PAF (paroxysmal atrial fibrillation) Skin lesion Thyroid nodule Surgical History Hx of cystoscopy H/O colonoscopy Physical Exam Vital Signs: BMI result Body Mass Index 25.6 Const General: comfortable; No acute distress Orientation/consciousness: patient oriented x3 Eyes General: appearance normal, both eyes and all related structures Visual Ballesteros: normal visual ballesteros by confrontation Neck Neck: Yes supple and Yes no JVD Resp Effort & Inspection: normal respiratory effort and respiratory effort not decreased Cardio Palpation: no palpable S3 and no palpable S4 Heart sounds: no rubs GI Inspection: Yes normal to inspection Palpation (GI): Soft to palpation Percussion: Yes normal to percussion Auscultation: normal bowel sounds General: Yes no CVA tenderness Back/Spine/Pelvis Back: no CVA tenderness Skin General skin exam: no petechiae and no purpura Neuro General: patient oriented x3 and no focal motor deficits Extrem General: No clubbing and No edema Results Reviewed Nephrology Results: Hgb 14.9 g/dl (14.0-18.0) 04/03/24 WBC 6.8 X10*3/uL (4.8-10.8) 04/03/24 Plt Count 152 X10*3/uL (160-400) L 04/03/24 Sodium 143 mmol/L (135-145) 12/17/24 Potassium 3.7 mmol/L (3.3-5.1) 12/17/24 Chloride 112 mmol/L (96-108) H 12/17/24 Carbon Dioxide 21 mmol/L (22-29) L 12/17/24 BUN 26 mg/dL (9-16) H 12/17/24 Creatinine 1.63 mg/dL (0.5-1.4) H 12/17/24 Calcium 9.5 mg/dL (8.4-10.2) 12/17/24 Urine Protein 30 (1+) mg/dL (Neg-Trace) H 04/03/24 Assessment & Plan Assessment & Plan (1) HTN (hypertension): Code(s): I10 - Essential (primary) hypertension Category: Medical (2) CKD (chronic kidney disease): Code(s): N18.9 - Chronic kidney disease, unspecified Category: Medical (3) Bladder stones: Code(s): N21.0 - Calculus in bladder Category: Medical Plan 74-year-old man with hypertension nephrolithiasis and CKD. Stable CKD 3. Creatinine has bumped up to 1.6 r/o Obstruction ? Hypoperfusion Check urine c/s and renal USG Goal is to slow the portion disease Continue overt nephrotoxic agents. Maintain blood pressure less than 130/80. At present blood pressure is well controlled. Encouraged him to stand low- sodium diet. Tophi. Continue the allopurinol Discussed low purine diet. Gave a prescription for colchicine 0.6 mg total of 3 tablets. Asked him to take 1 tablet if he has an episode of gout and call me promptly Mild thrombocytopenia- ? due to allopurinol Renal stone Follows with Orders: Orders US renal BI Today N18.9 - Chronic kidney disease, unspecified, N21.0 - Calculus in bladder Urine Culture Today N21.0 - Calculus in bladder Basic Metabolic Panel Today N18.9 - Chronic kidney disease, unspecified Coding Level of Care Code Est Pt Level 4 (05657) Diagnoses HTN (hypertension) I10 CKD (chronic kidney disease) N18.9 Bladder stones N21.0
[2024-12-25 14:11] VITALS: BP 126/84; BMI 25.6
--- OUTSIDE RECORDS SUMMARY | 2024-12-25 17:15 | XMS_ITS | Clinical Summary ---
Author Organization [facility] Address [address] [place] [address] Phone Care Team Providers Care Asset Accountant Name Role Phone Jass Mota MD Primary [...] patient's age to complete this topic Insurance [facility] MEDICARE [facility] MEDICARE Care Teams Asset Accountant Relationship Specialty Start Date End Date Jass Mota MD [address] [place], [place] PCP - General 11/08/20
--- OUTSIDE RECORDS SUMMARY | 2024-12-25 17:15 | XMS_ITS ---
Author Organization Jass Mota MD Address [address] [place] [phone] Care Team Providers Care Security Officer Name Role Phone Jass Mota Primary Care Provider [phone] REASON FOR VISIT Ostomy supply order Encounters Encounter Location Date Provider Diagnosis Jass Mota MD [address] [facility] [address] [place] [phone] 06/26/2024 Jass Mota Plan Of Treatment Next Appt Details Provider Name:Jass grullon, 01/12/2025 01:30:00 PM, [address] [place] [address], [address] [place] [address], [phone], Provider Name:Jass grullon, 04/06/2025 07:45:00 AM, [address] [place] [address], [address], [phone], Provider Name:Jass grullon, 04/13/2025 01:00:00 PM, [address], [address], [place], [phone], Progress Notes * RACHAEL HAMILTONDOB:1950 (73 yo M)Acc No.[id number]:06/26/2024 Patient:?RACHAEL HAMILTON :1950???Age:73 Y???Sex:Male Address:[address] [place] [address] [place], [address] * true * Date:? Generated for Ryan asif/Sumanth/Darshansmitting on:?12/25/2024 05:15 PM EST
--- OUTSIDE RECORDS SUMMARY | 2024-12-25 17:15 | XMS_ITS ---
Author Organization [facility] Address [address] [place] [phone] Care Team Providers Care Hog Scraper Name Role Phone Jass Mota MD Primary Care Provider Vikas Quijano [phone] REASON FOR VISIT cancelling aug 15 colonoscopy Encounters Encounter Location Date Provider Diagnosis [facility] [address] [place] [phone] 08/01/2024 Vikas Garcia PLAN OF TREATMENT No Information
--- OUTSIDE RECORDS SUMMARY | 2024-12-25 17:15 | XMS_ITS | Patient Health Record ---
Author Organization [facility] Address [address] [place] [phone] Care Team Providers Care Assembler Truck Trailer Name Role Phone Svetlana SHAIRF, Jass Primary Care Provider Vikas Quijano [phone] ALLERGIES Allergen (clinical drug ingredient) Drug/Non Drug [...] Problem Blood in stool (K92.1) Active confirmed 03509594 Problem Tubular adenoma of colon (D12.6) Active confirmed 734674973 Problem Heme + stool (R19.5) Active confirmed Abnormal feces (168783867) Problem Rectal bleed (K62.5) Active confirmed 50306828 Problem Pancreatic cyst (K86.2) Active confirmed 39351370 Problem Pancreas cyst (K86.2) Active confirmed 79431600 VITAL SIGNS Temperature 98.7 degrees Fahrenheit 04/23/2024 Blood pressure diastolic 00 mm Hg 04/23/2024 Height 76 in 04/23/2024 Blood pressure systolic 000 mm Hg 04/23/2024 Weight 202 lb 2 oz lbs 04/23/2024 BMI 24.60 kg/m2 04/23/2024 Encounters Encounter Location Date Provider Diagnosis [facility] Outpatient [address] [place] [phone] 08/15/2024 Vikas [facility] [address] [place] [phone] 04/23/2024 Vikas Garcia Heme + stool R19.5 ; Tubular adenoma of colon D12.6 and Pancreatic cyst K86.2 [facility] [address] [place] [phone] 08/01/2024 Vikas Garcia ASSESSMENTS Encounter Date Diagnosis [...] [place] [address] [place] [address] [phone] [id number] RACHAEL HAMILTON Self - patient is the insured [employer] CLAIM[employer] [address] [place] [address] [phone] [id number] RACHAEL HAMILTON Self - patient is the insured MEDICAL (GENERAL) HISTORY Medical History History ICD Code Denies MD,DM,CVA,Lung disease Hypertension Stage 2 kidney disease--sees Dr. [...]
--- OUTSIDE RECORDS SUMMARY | 2024-12-25 17:15 | XMS_ITS ---
Author Organization Jass Mota MD Address [address] [place] [phone] Care Team Providers Care Heel Sewer Name Role Phone Jass Mota Primary Care Provider [phone] REASON FOR VISIT FYI cx colonoscopy 08-15-2024 Encounters Encounter Location Date Provider Diagnosis Jass Mota MD 10 [facility] [address] [place], [place] [phone] 08/05/2024 Jass Mota Plan Of Treatment Next Appt Details Provider Name:Jass grullon, 01/12/2025 01:30:00 PM, [address] [place] [address], [address] [place] [address], [phone], Provider Name:Jass grullon, 04/06/2025 07:45:00 AM, [address] [place] [address], [address], [phone], Provider Name:Jass Braulio Jolley yadi, 04/13/2025 01:00:00 PM, [address], [address], [place], [phone], Progress Notes * RACHAEL HAMILTONDOB:1950 (73 yo M)Acc No.[id number]:08/05/2024 Patient:?RACHAEL HAMILTON :1950???Age:73 Y???Sex:Male Address:[address] [place] [address], [address] * true * Date:? Generated for Ryan asif/Sumanth/eTdarcismitting on:?12/25/2024 05:15 PM EST
--- OUTSIDE RECORDS SUMMARY | 2024-12-25 17:15 | XMS_ITS ---
Author Organization [facility] Address [address] [place] [address] Care Team Providers Care Shrimp Peeling Machine Tender Name Role Phone aJss Mota MD Primary Care Provider Vikas Quijano [phone] REASON FOR VISIT heme positive stools,tubular adenoma of colon Encounters Encounter Location Date Provider Diagnosis [facility] [address] [place], [place] [phone] 08/15/2024 Vikas Garcia PLAN OF TREATMENT No Information
--- OUTSIDE RECORDS SUMMARY | 2024-12-25 17:15 | XMS_ITS ---
Author Organization [facility] Address [address] [place] [phone] Care Team Providers Care Colorer Hides And Skins Name Role Phone Jass Mota MD Primary Care Provider Vikas Quijano [phone] ALLERGIES Allergen (clinical drug ingredient) Drug/Non Drug [...] + stool (R19.5) Active confirmed Abnormal feces (753727009) VITAL SIGNS Temperature 98.7 degrees Fahrenheit 04/23/20 24 Blood pressure systolic 000 mm Hg 04/23/20 24 Blood pressure diastolic 00 mm Hg 024 Height 76 in 04/23/2024 Weight 202 lb 2 oz lbs 04/23/2024 BMI 24.60 kg/m2 04/23/2024 Encounters Encounter Location Date Provider Diagnosis [facility] [address] [place] [address] 04/23/2024 Vikas Garcia Heme + stool R19.5 [...]
--- OUTSIDE RECORDS SUMMARY | 2024-12-25 17:16 | XMS_ITS ---
Author Organization Jass Mota MD Address [address] [place], [place] [phone] Care Team Providers Care Force Dispatcher Name Role Phone Jass Mota Primary Care [...] Problem Status W/U Status Risk Notes Problem 61246380 Kidney stones (N20.0) Active confirmed Problem 28552314 Bladder stones (N21.0) Active confirmed Vital Signs Blood pressure systolic 132 mm Hg 07/14/20 24 Blood pressure diastolic 84 mm Hg 024 Height 75 in 07/14/2024 Weight 206 lbs 07/14/2024 BMI 25.75 kg/m2 07/14/2024 weight is up 8 poiunds since 04-10-24 Encounters Encounter Location Date Provider Diagnosis Jass Mota MD [address] [place] [address] [place] [phone] 07/14/2024 Jass Mota Prediabetes R73.09 ; Colon [...] Reason: Provider Name:Jass grullon, 01/12/2025 01:30:00 PM, [address] [place] [address], [address], [phone], Provider Name:Jass grullon, 04/06/2025 07:45:00 AM, [address] [place] [address], [address] [facility], [place], [place], [phone], Provider Name:Jass grullon, 04/13/2025 01:00:00 PM, [address] [place] [address], [address] [facility], [place], [place], [phone], Progress Notes * RACHAEL HAMILTONDOB:1950 (73 yo M)Acc No.[id number]:07/14/2024 Progress Notes Patient:?RACHAEL HAMILTON Provider:?Jass Mota MD :1950???Age:73 Y???Sex:Male Hammad e:07/14/2024 Address:[address] [place] [address] [id number] Subjective: * Chief Complaints: * ???3 month [...] Cydneyisai Soto on Left Deltoid * Procedure Codes:?28540 ASSAY , GLUCOSE, BLOOD QUANT, Modifiers: QW 90084 GLYCATED HEMOGLOBIN TEST, Modifiers: QW 01492 FLU VACC PRSV FREE INC [id number] ADMN FLU VAC NO FEE SCHED SAME DAY * Preventive Medicine:? ??Immunizations:?Influenza?Have you had a flu shot since the most recent June 29??Yes.? * Follow Up:?6 Months * * Sign off status: Completed true * Provider:?Jass Mota MD Date:?0 07/14/2024 Generated for Ryan asif/Sumanth/eTransmitting on:?12/25/2024 05:15 PM EST History and Physical Notes * [...]
== END 2024-12-25 14:27 | disposition home or self-care (01) ==
PROVIDERS: PCP Internal Medicine; Visit Provider Internal Medicine Hypertension Specialist
DX: I12.9 Hypertensive chronic kidney disease with stage 1 through stage 4 chronic kidney disease, or unspecified chronic kidney disease (principal); N18.9 Chronic kidney disease, unspecified; N21.0 Calculus in bladder
CPT/HCPCS: 99214

== ENCOUNTER → 2024-12-25 14:08 | Outpatient (BNVA) | payer MEDICARE, SELFPAY | PROVIDERS: PCP Internal Medicine; Visit Provider Internal Medicine Hypertension Specialist | DX: I12.9 Hypertensive chronic kidney disease with stage 1 through stage 4 chronic kidney disease, or unspecified chronic kidney disease (principal); N18.9 Chronic kidney disease, unspecified; N21.0 Calculus in bladder | CPT/HCPCS: 99212 ==

== ENCOUNTER 2025-01-28 14:16 | Outpatient (REF) | payer MEDICARE, SELFPAY ==
--- NOTE | ~2025-01-28 | US_ITS ---
EXAMINATION: US KIDNEY BILATERAL HISTORY: I10 - Essential (primary) hypertension TECHNIQUE: Real-time grayscale ultrasound imaging of the kidneys was performed and images were reviewed. COMPARISON: Comparison is made with the prior examination dated 05/17/2022. FINDINGS: Right kidney: The right kidney measures 11.4 x 4.1 x 6.9 cm. Renal parenchymal echotexture and thickness are normal. There are no masses. Multiple nonobstructing calculi are again identified, including a 1.7 x 1.6 x 1.4 cm calculus at the upper pole, a 1.3 x 1.2 x 1.7 cm calculus at the lower pole, and calculi in the interpolar region measuring 2.1 x 1.9 x 3.0 cm and 2.1 x 1.2 x 1.2 cm. There is no hydronephrosis. Left Kidney: The left kidney measures 11.3 x 4.7 x 5.8 cm. Renal parenchymal echotexture and thickness are normal. There are no masses. Again seen is a 0.8 x 0.3 x 0.5 cm calculus in the interpolar region and a 0.7 x 0.6 x 0.5 cm calculus at the lower pole. There is no hydronephrosis. US/US renal BI IMPRESSION: Bilateral nephrolithiasis as described. No hydronephrosis. Electronically signed by: Vikas Wilburn MD 01/28/2025 02:48 PM EDT
--- OUTSIDE RECORDS SUMMARY | 2025-01-28 17:04 | XMS_ITS | Clinical Summary ---
Author Organization [facility] Address [address] [place] [address] Phone Care Team Providers Care Music Copyist Name Role Phone Jass Mota MD Primary [...] patient's age to complete this topic Insurance [facility] MEDICARE [facility] MEDICARE Care Teams Music Copyist Relationship Specialty Start Date End Date Jass Mota MD [address] [place], [place] PCP - General 11/08/20
--- OUTSIDE RECORDS SUMMARY | 2025-01-28 17:04 | XMS_ITS | Patient Health Record ---
Author Organization [facility] Address [address] [place] [phone] Care Team Providers Care Computer Clerk Name Role Phone Svetlana SHARIF, Jass Primary Care Provider Vikas Quijano [phone] Allergies Allergen (clinical drug ingredient) Drug/Non Drug Allergy documented on EMR Reaction Allergy Type Onset Date Status Penicillin Unknown Drug Allergy Active Reason For Referral No Information Medications Medication SIG (Take, Route, Frequency, Duration) [...] Fe) MG as directed Orally 03/31/2020 Active Immunizations Vaccine Route Administration Date Status Comme nts Influenza Unknown 07/29/2019 Administered Influenza Unknown 06/29/2020 Administered Influenza Unknown 08/21/2023 Administered Social History Tobacco Use: Social History Observation Description Date Details (start date - stop date) Never Smoker NA - NA Tobacco Use/Smoking Question Answer Notes Patient is a nonsmoker Alcohol Screen Question Answer Notes Did you have a drink containing alcohol in the p ast year? No Points 0 Interpretation Negative Section Notes: Nonsmoker; no sig alcohol Nonsmoker; no sig alcohol Nonsmoker; no sig alcohol Nonsmoker; no sig alcohol Nonsmoker; no sig alcohol Problems Problem Type SNOMED Code ICD Code Onset Dates Problem Status W/U Status Risk Notes Problem 86193095 Blood in stool (K92.1) Active confirmed Problem 326665176 Tubular adenoma of colon (D12.6) Active confirmed Problem Abnormal feces (373997581) Heme + stool (R19.5) Active confirmed Problem 99309917 Rectal bleed (K62.5) Active confirmed Problem 88789621 Pancreatic cyst (K86.2) Active confirmed Problem 23939559 Pancreas cyst (K86.2) Active confirmed Vital Signs Temperature 98.7 degrees Fahrenheit 04/23/2024 Blood pressure diastolic 00 mm Hg 04/23/2024 Height 76 in 04/23/2024 Blood pressure systolic 000 mm Hg 04/23/2024 Weight 202 lb 2 oz lbs 04/23/2024 BMI 24.60 kg/m2 04/23/2024 Encounters Encounter Location Date Provider Diagnosis [facility] [address] [place] [phone] 04/23/2024 Vikas Garcia Heme + stool R19.5 ; Tubular adenoma of colon D12.6 and Pancreatic cyst K86.2 [facility] [address] [place] [phone] 08/01/2024 Vikas Garcia Assessments Encounter Date Diagnosis (ICD Code) Assessment Notes Treatment Notes Treatment Clinical Notes Section Notes 04/23/2024 Tubular adenoma of colon (ICD-10 - D12.6) Overall, Rachael appears well. We did review the finding of heme-positive mucus on his recent rectal exam. While he has a diverting ileostomy and does not use his colon, we did review that the colon that remains after surgery can develope polyps and be at risk of colon cancer. Given the surgery that he had back in 2018 it does appear that he has the majority of his colon remaining. Therefore, given the finding of some heme-positive rectal mucus, I advised him that I would definitely recommend a colonoscopy to rule out any source of bleeding such as a polyp or neoplasm. I did recommend a colonoscopy with monitored anesthesia care. We did review the rationale for this regard to colorectal cancer prevention and/or early detection. Obviously, given his diverting ileostomy, he will not do an oral prep for the colonoscopy. Obviously he will not have much in the colon given all these years of the diverting ileostomy, but nonetheless I will have him do an enema at home and she can receive another enema when he gets to the hospital just to facilitate any cleanout of residual mucus and any old stool particles in the colon. I will also obtain a copy of his recent MRI of the abdomen to see if any significant changes had occurred in relation to the previously known pancreatic cysts. Rachael was comfortable with this plan. Thank you again for allowing me to participate in Rachael's care. I shall continue to keep you advised of his progress. 04/23/2024 Heme + stool (ICD-10 - R19.5) Do one Fleets enema the night before the colonoscopy Overall, Rachael appears well. We did review the finding of heme-positive mucus on his recent rectal exam. While he has a diverting ileostomy and does not use his colon, we did review that the colon that remains after surgery can develope polyps and be at risk of colon cancer. Given the surgery that he had back in 2018 it does appear that he has the majority of his colon remaining. Therefore, given the finding of some heme-positive rectal mucus, I advised him that I would definitely recommend a colonoscopy to rule out any source of bleeding such as a polyp or neoplasm. I did recommend a colonoscopy with monitored anesthesia care. We did review the rationale for this regard to colorectal cancer prevention and/or early detection. Obviously, given his diverting ileostomy, he will not do an oral prep for the colonoscopy. Obviously he will not have much in the colon given all these years of the diverting ileostomy, but nonetheless I will have him do an enema at home and she can receive another enema when he gets to the hospital just to facilitate any cleanout of residual mucus and any old stool particles in the colon. I will also obtain a copy of his recent MRI of the abdomen to see if any significant changes had occurred in relation to the previously known pancreatic cysts. Rachael was comfortable with this plan. Thank you again for allowing me to participate in Rachael's care. I shall continue to keep you advised of his progress. 04/23/2024 Pancreatic cyst (ICD-10 - K86.2) Need MRI report from Dr. Mota Overall, Rachael appears well. We did review the finding of heme-positive mucus on his recent rectal exam. While he has a diverting ileostomy and does not use his colon, we did review that the colon that remains after surgery can develope polyps and be at risk of colon cancer. Given the surgery that he had back in 2018 it does appear that he has the majority of his colon remaining. Therefore, given the finding of some heme-positive rectal mucus, I advised him that I would definitely recommend a colonoscopy to rule out any source of bleeding such as a polyp or neoplasm. I did recommend a colonoscopy with monitored anesthesia care. We did review the rationale for this regard to colorectal cancer prevention and/or early detection. Obviously, given his diverting ileostomy, he will not do an oral prep for the colonoscopy. Obviously he will not have much in the colon given all these years of the diverting ileostomy, but nonetheless I will have him do an enema at home and she can receive another enema when he gets to the hospital just to facilitate any cleanout of residual mucus and any old stool particles in the colon. I will also obtain a copy of his recent MRI of the abdomen to see if any significant changes had occurred in relation to the previously known pancreatic cysts. Rachael was comfortable with this plan. Thank you again for allowing me to participate in Rachael's care. I shall continue to keep you advised of his progress. Plan Of Treatment Pending Test Test Name Order Date BUN 07/02/2020 BUN 04/05/2021 CREATININE 07/02/2020 CREATININE 04/05/2021 CA 19-9 03/31/2020 MRI ABD W&WO CONTRAST 07/02/2020 MRI ABD W&WO CONTRAST 04/05/2021 Future Test Test Name Order Date COLONOSCOPY 02/06/2018 COLONOSCOPY 04/23/2024 Insurance Providers Payer Name Payer Address Payer Phone Subscriber Number Group Number Insured Name Patient Relationship to Insured Coverage Start Date Coverage End Date [employer] [place] [address] [facility] [place] [address] [phone] [id number] RACHAEL HAMILTON Self - patient is the insured [employer] ATT[employer] CLAIMS [address] [place] [address] [id number] RACHAEL HAMILTON Self - patient is the insured Medical (General) History Medical History History ICD Code Denies ID,DM,CVA,Lung disease Hypertension Stage 2 kidney disease--sees Dr. 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
--- OUTSIDE RECORDS SUMMARY | 2025-01-28 17:05 | XMS_ITS ---
Author Organization Jass Mota MD Address [address] [place] [phone] Care Team Providers Care Knot Picker Cloth Name Role Phone Jass Mota Primary Care Provider [phone] REASON FOR VISIT FYI cx colonoscopy 08-15-2024 Encounters Encounter Location Date Provider Diagnosis Jass Mota MD [facility] [address] [place] [phone] 08/05/2024 Jass Mota Plan Of Treatment Next Appt Details Provider Name:Jass grullon, 04/06/2025 07:45:00 AM, [address] [place] [address], [address] [place] [address], [phone], Provider Name:Jass grullon, 04/13/2025 01:00:00 PM, [address] [place] [address], [address], [phone], Progress Notes * RACHAEL HAMILTONDOB:1950 (73 yo M)Acc No.[id number]:08/05/2024 Patient:?RACHAEL HAMILTON :1950???Age:73 Y???Sex:Male Address:[address] [place] [address], [address] * true * Date:? Generated for Ryan asif/Sumanth/eTransmitting on:?01/28/2025 05:05 PM EDT
--- OUTSIDE RECORDS SUMMARY | 2025-01-28 17:05 | XMS_ITS ---
Author Organization [facility] Address [address] [place] [phone] Care Team Providers Care Spring Assembler Supervisor Name Role Phone Jass Mota MD Primary Care Provider Vikas Quijano [phone] REASON FOR VISIT cancelling aug 15 colonoscopy Encounters Encounter Location Date Provider Diagnosis [facility] [address] [place] [phone] 08/01/2024 Vikas Garcia Plan Of Treatment No Information Progress Notes * RACHAEL HAMILTONDOB:1950 (73 yo M)Acc No.[id number]:08/01/2024 Patient:?RACHAEL HAMILTON :1950???Age:73 Y???Sex:Male Address:[address] [place] [address], [place], [address] * true * Date:? Generated for Printi ng/Faradhag/eTransmitting on:?01/28/2025 05:05 PM EDT
--- OUTSIDE RECORDS SUMMARY | 2025-01-28 17:05 | XMS_ITS ---
Author Organization [facility] Address [address] [place] [phone] Care Team Providers Care Trimmer Climber Name Role Phone Jass Mota MD Primary Care Provider Vikas Quijano [phone] Allergies Allergen (clinical drug ingredient) Drug/Non Drug Allergy documented on EMR Reaction Allergy Type Onset Date Status Penicillin Unknown Drug Allergy Active REASON FOR VISIT Patient presents today for POSITIVE STOOL Medications Medication SIG (Take, Route, Frequency, Duration) [...] Once a day for 30 day(s) Active Social History Tobacco Use: Social History Observation Description Date Details (start date - stop date) Never Smoker NA - NA Tobacco Use/Smoking Question Answer Notes Patient is a nonsmoker Alcohol Screen Question Answer Notes Did you have a drink containing alcohol in the p ast year? No Points 0 Interpretation Negative Section Notes: Nonsmoker; no sig alcohol Problems Problem Type SNOMED Code ICD Code Onset Dates Problem Status W/U Status Risk Notes Problem Abnormal feces (217366843) Heme + stool (R19.5) Active confirmed Vital Signs Temperature 98.7 degrees Fahrenheit 04/23/20 24 Blood pressure systolic 000 mm Hg 04/23/20 24 Blood pressure diastolic 00 mm Hg 024 Height 76 in 04/23/2024 Weight 202 lb 2 oz lbs 04/23/2024 BMI 24.60 kg/m2 04/23/2024 Encounters Encounter Location Date Provider Diagnosis [facility] [address] [place] [address] 04/23/2024 Vikas Gracia Heme + stool R19.5 ; Tubular adenoma of colon D12.6 and Pancreatic cyst K86.2 Assessments Encounter Date Diagnosis (ICD Code) Assessment Notes Treatment Notes Treatment Clinical Notes Section Notes 04/23/2024 Heme + stool (ICD-10 - [...] keep you advised of his progress. 04/23/2024 Tubular adenoma of colon (ICD-10 - [...] advised of his progress. Plan Of Treatment Treatment Notes Assessment Notes Heme + stool Do one Fleets enema the night before the colonoscopy Pancreatic cyst Need MRI report from Dr. Mota Future Test Test Name Order Date COLONOSCOPY 04/23/2024 Next Appt Details Follow Up: prn, Reason: Progress Notes * RACHAEL HAMILTON JonathanDOB:1950 (73 yo M)Acc No.[id number]:04/23/2024 Progress Notes Patient:?RACHAEL HAMILTON Provider:?Vikas Garcia MD :1950???Age:73 Y???Sex:Male Hammad e:04/23/2024 Address:[address] [place], [place] [phone] Pcp:Jass Mota MD Subjective: * Chief Complaints: * ???Patient presents today fo r POSITIVE STOOL * HPI: ???incontinence:? I saw Rachael in consultation today in regard to further evaluation of his heme-positive stool and history of a tubular adenoma of the colon, as well as a history of pancreatic cysts. ?I last saw Rachael in March of 2021. His one and only colonoscopy in 2018 did reveal a tubular adenoma that was removed. As you know, he does have a diverting ileostomy after surgery for a small bowel obstruction in 2018 In relation to lymphoma. At that time he had resection of the distal ileum and portion of the ascending colon. He never went back to have the ileostomy reversed. ?He reports that he presently feels well. He enjoys a good appetite, without any significant heartburn or dysphagia. He denies abdominal pain, jaundice, nor weight loss. He reports that the ileostomy is working well and there is no evidence of any bleeding. He describes occasional rectal discharge of some mucous but no rectal bleeding. ?As you know, he was seen in your office for a recent physical exam and on digital rectal exam had some heme-positive mucus. He does describe some rectal discharge in relation to mucous but denies any stool output. He denies any known family history of colon cancer. ?He does describe a recent MRI of the abdomen and being told of no significant problems. ?Laboratories earlier this month revealed a normal CBC and normal liver profile. * ROS:?General/Constitutional:?Change in appetite?denies.?Chills?denies.?Fatigue?denies.?Ophthalmologic:?Comments?all negative.?ENT:?Comments?all negative.?Respiratory:?hemoptysis?denies.?Cough?denies.?Cardiovascular:?Chest pain?denies.?Orthopnea?denies.?Gastrointestinal:?Comments?See HPI for details.?Genitourinary:?Hematuria?denies.?Dysuria?denies.?Musculoskeletal:?Painful joints?denies.?Weakness?denies.?Skin:?Itching?denies.?Rash?denies.?Neurologic:?Headache?denies.?Seizures?denies.?Psychiatric:?Comments?all negative.?pt declines flu vaccine. * Medical History:? * Surgical History:?Appendecto my 1963Inguinal right hernia repair 1967Surgery as above for the B-cell lymphoma with a right ileocolectomy and ileostomy in August of 2018--he had presented with a small bowel obstruction * Hospitalization/Major Diagno stic Procedure:?No Hospitalization History. * Family History:?Father: dece ased.?Mother: , diagnosed with Colon polyps, Heart disease.? No colorectal cancer except possibly in his mother in her 80's. No pancreatic disease Denies any other family hx of colon cancer, colon polyps or liver ds. * Social History:?Tobacco Use:?Tobacco Use/Smoking?Patient is a?nonsmoker.?Drugs/Alcohol:?Alcohol Screen?Did you have a drink containing alcohol in the past year??No,?Points?0,?Interpretation?Negative.?Miscellaneous:?Marital status: . 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 ???Nonsmoker; no sig alcohol. * Medications:?TakingAcetamino phen 500 MG Capsule 1 capsule as needed Orally every 6 hrs, Notes: as neededAllopurinol 100 MG Tablet 1 tablet Orally Once a dayCinacalcet HCl 90 MG Tablet 1 tablet with food or after a meal Orally Once a dayMetoprolol Succinate ER 200 MG Tablet Extended Release 24 Hour 1 tablet Orally Once a daydilTIAZem HCl ER Coated Beads 240 MG Capsule Extended Release 24 Hour TAKE 1 CAPSULE BY MOUTH EVERY DAY Oral Tamsulosin HCl 0.4 MG Capsule TAKE 1 TABLET BY MOUTH AT BEDTIME Oral Ferrous Sulfate Dried 200 (65 Fe) MG Tablet as directed Orally hydroCHLOROthiazide 12.5 MG Capsule 1 capsule in the morning Orally Once a dayTimolol Maleate 0.5 % (DAILY) Solution 1 drop into affected eye Ophthalmic Once a dayTriamcinolone Acetonide 0.1 % Cream 1 application Externally Two times a WeekTylenol Extra Strength 500 MG Tablet 2tablet as needed Orally every 6 hrs, Notes: PRNTaking Acetaminophen 500 MG Capsule 1 capsule as needed Orally every 6 hrs, Notes: as neededTaking Allopurinol 100 MG Tablet 1 tablet Orally Once a dayTaking Cinacalcet HCl 90 MG Tablet 1 tablet with food or after a meal Orally Once a dayTaking Metoprolol Succinate ER 200 MG Tablet Extended Release 24 Hour 1 tablet Orally Once a dayTaking dilTIAZem HCl ER Coated Beads 240 MG Capsule Extended Release 24 Hour TAKE 1 CAPSULE BY MOUTH EVERY DAY Oral Taking Tamsulosin HCl 0.4 MG Capsule TAKE 1 TABLET BY MOUTH AT BEDTIME Oral Taking Ferrous Sulfate Dried 200 (65 Fe) MG Tablet as directed Orally Taking hydroCHLOROthiazide 12.5 MG Capsule 1 capsule in the morning Orally Once a dayTaking Timolol Maleate 0.5 % (DAILY) Solution 1 drop into affected eye Ophthalmic Once a dayTaking Triamcinolone Acetonide 0.1 % Cream 1 application Externally Two times a WeekTaking Tylenol Extra Strength 500 MG Tablet 2tablet as needed Orally every 6 hrs, Notes: PRNNot-Taking/PRNEliquis 5 MG Tablet 1 tablet Orally bidamLODIPine Besy-Benazepril HCl 10-40 MG Capsule Orally Medication List reviewed and reconciled with the patientNot-Taking/PRN Eliquis 5 MG Tablet 1 tablet Orally bidNot-Taking/PRN amLODIPine Besy-Benazepril HCl 10-40 MG Capsule Orally Medication List reviewed and reconciled with the patient * Allergies:?Penicillinyes[All ergies Verified] Objective: * Vitals:?Wt: 202 lb 2 oz, Ht: 76 in, BMI:24.60 Index, BP: 000/00 mm Hg, Temp: 98.7. * Examination: ???General Examination: ?GENERAL APPEARANCE:?pleasant, well nourished, well developed, in no acute distress.?EYES:?sclera non-icteric.?ORAL CAVITY:?mucosa moist.?NECK/THYROID:?no cervical lymphadenopathy, neck supple.?SKIN:?nonjaundiced, no spider angiomata.?HEART:?S1, S2 normal.?LUNGS:?clear to auscultation bilaterally.?ABDOMEN:?normal bowel sounds, no guarding or rigidity, no guarding or rigidity, no masses palpable, soft, nontender, nondistended.?EXTREMITIES:?no edema.?NEUROLOGIC:?alert and oriented.? Assessment: * Assessment: 1.?Heme + stool - R19.5 (Alina montes)?2.?Tubular adenoma of colon - D12.6?3.?Pancreatic cyst - K86.2? Overall, Rachael appears well. We did review [...] to keep you advised of his progress. Plan: * Treatment: Notes: Do one Fleets enema the night before the colonoscopy??2.?Tubular adenoma of colon?Procedure: COLONOSCOPY (Ordered for 04/23/2024)* with MACsched for 08/15/24 a t 12:10pm1 fleets enema the night before 3.?Pancreatic cyst? Notes: Need MRI report from Dr. Mota?? * Procedure Codes:?3017F COLOR ECTAL CA SCREEN DOC [id number] TOBACCO NON-IBYQN3293 BP SCR NOT PRFRM REC REASON NOS * Follow Up:?prn * * Sign off status: Completed true * Provider:?Vikas Garcia MD Date:? 024 Generated for Ryan asif/Sumanth/John on:?01/28/2025 05:04 PM EDT History and Physical Notes * HPI (History of Present Illness) Category Sub-Category Detail Notes Category Not es incontinence I saw Rachael in consultation today in regard to further evaluation of his heme-positive stool and history of a tubular adenoma of the colon, as well as a history of pancreatic cysts. I last saw Rachael in March of 2021. His one and only colonoscopy in 2018 did reveal a tubular adenoma that was removed. As you know, he does have a diverting ileostomy after surgery for a small bowel obstruction in 2018 In relation to lymphoma. At that time he had resection of the distal ileum and portion of the ascending colon. He never went back to have the ileostomy reversed. He reports that he presently feels well. He enjoys a good appetite, without any significant heartburn or dysphagia. He denies abdominal pain, jaundice, nor weight loss. He reports that the ileostomy is working well and there is no evidence of any bleeding. He describes occasional rectal discharge of some mucous but no rectal bleeding. As you know, he was seen in your office for a recent physical exam and on digital rectal exam had some heme-positive mucus. He does describe some rectal discharge in relation to mucous but denies any stool output. He denies any known family history of colon cancer. He does describe a recent MRI of the abdomen and being told of no significant problems. Laboratories earlier this month revealed a normal CBC and normal liver profile. Examination Category Sub-Category Detail Notes Category Not es General Examination GENERAL APPEARANCE: pleasant , well [...]
--- OUTSIDE RECORDS SUMMARY | 2025-01-28 17:06 | XMS_ITS ---
Author Organization Jass Mota MD Address [address] [place], [place] [phone] Care Team Providers Care Loin Puller Name Role Phone Jass Mota Primary Care [...] Problem Status W/U Status Risk Notes Problem 09332945 Kidney stones (N20.0) Active confirmed Problem 77826169 Bladder stones (N21.0) Active confirmed Vital Signs Blood pressure systolic 132 mm Hg 07/14/20 24 Blood pressure diastolic 84 mm Hg 024 Height 75 in 07/14/2024 Weight 206 lbs 07/14/2024 BMI 25.75 kg/m2 07/14/2024 weight is up 8 poiunds since 04-10-24 Encounters Encounter Location Date Provider Diagnosis Jass Mota MD [address] [place] [address] [place] [phone] 07/14/2024 Jass Mota Prediabetes R73.09 ; Colon [...] Up: 6 Months, Reason: Provider Name:Jass grullon, 04/06/2025 07:45:00 AM, [address] [place] [address], [address] [place] [address], [phone], Provider Name:Jass grullon, 04/13/2025 01:00:00 PM, [address] [place] [address], Suite [facility], [place], [place], [phone], Progress Notes * RACHAEL HAMILTONDOB:1950 (73 yo M)Acc No.[id number]:07/14/2024 Progress Notes Patient:?RACHAEL HAMILTON Provider:?Jass Mota MD :1950???Age:73 Y???Sex:Male Ahmmad e:07/14/2024 Address:[address] [place], [place] [phone] Subjective: * Chief Complaints: * ???3 month [...] Reference Range ?Value 97 * Cydney Soto 02:04:16 PM EDT > 2.?Colon cancer screening? [...] Cydney Soto on Left Deltoid * Procedure Codes:?27398 ASSAY , GLUCOSE, BLOOD QUANT, Modifiers: QW 10387 GLYCATED HEMOGLOBIN TEST, Modifiers: QW 55832 FLU VACC PRSV FREE INC [id number] ADMN FLU VAC NO FEE SCHED SAME DAY * Preventive Medicine:? ??Immunizations:?Influenza?Have you had a flu shot since the most recent June 29??Yes.? * Follow Up:?6 Months * * Sign off status: Completed true * Provider:?Jass Mota MD Date:?0 07/14/2024 Generated for Ryan asif/Sumanth/eTransmitting on:?01/28/2025 05:05 PM EDT History and Physical Notes * [...]
--- OUTSIDE RECORDS SUMMARY | 2025-01-28 17:06 | XMS_ITS ---
Author Organization Jass Mota MD Address [address] [place] [phone] Care Team Providers Care Associate Professor Of Forestry Name Role Phone Jass Mota Primary Care Provider Allergies Allergen (clinical drug ingredient) Drug/Non Drug Allergy documented on EMR Reaction Allergy Type Onset Date Status losartan Losartan Potassium hyperkalemia Drug Allergy Active Penicillin (uncoded) rash Allergy Active REASON FOR VISIT 6 MO F/U Encounters Encounter Location Date Provider Diagnosis Jass Mota MD [address] [place] [phone] 01/12/2025 Jass Mota Prediabetes R73.09 Assessments Encounter Date Diagnosis (ICD Code) Assessment Notes Treatment Notes Treatment Clinical Notes Section Notes 01/12/2025 Prediabetes (ICD-10 - R73.09) Plan Of Treatment Pending Test Test Name Order Date Hemoglobin A1c 01/12/2025 Glucose, finger stick 01/12/2025 Next Appt Details Provider Name:Jass Jolley ier, 04/06/2025 07:45:00 AM, [address], [address], [place], [place], [phone], Provider Name:Jass Jolley ier, 04/13/2025 01:00:00 PM, [address], [address], [place], [phone], Progress Notes * RACHAEL HAMILTONDOB:1950 (74 yo M)Acc No.[id number]:01/12/2025 Progress Notes Patient:?RACHAEL HAMILTON Provider:?Jass Mota MD :1950???Age:74 Y???Sex:Male Hammad e:01/12/2025 Address:[address] [place], [place] [phone] Subjective: * Chief Complaints: * ???1. 6 MO F/U. * ROS:?General/Constitutional:?Denies?Chills.?Denies?Fatigue.?Denies?Fever.?Denies?Headache.?ENT:?Denies?Sore throat.?Respiratory:?Denies?Cough.?Denies?Shortness of breath at rest.?Denies?Shortness of breath with exertion.?Gastrointestinal:?Denies?Diarrhea.?Denies?Nausea.? * Medical History:?discussed c olonoscopy 2011 and 2012 and 2014,2016 refused again in 2017; colonoscopy done 02/14/[address] Garcia - repeat 5 years, Urology w/u for hematuria with cysto and ct 2019, Thyroid nodule biopsied and was neg. * Allergies:?Penicillin: rash, Losartan Potassium: hyperkalemia. Objective: * Vitals:? Assessment: * Assessment: 1.?Prediabetes - R73.09 (Alina simon)??? Plan: * Treatment: * Procedure Codes:?56484 ASSAY , GLUCOSE, BLOOD QUANT, Modifiers: QW , 49892 GLYCATED HEMOGLOBIN TEST, Modifiers: QW * * The named appointment provid er may or may not be the originator of this progress note, and it is not deemed complete until electronically signed by the appointment provider. Sign off status: Pending * Provider:?Jass Mota MD Date:?0 01/12/2025 Generated for Ryan asif/Sumanth/John on:?01/28/2025 05:05 PM EDT
--- OUTSIDE RECORDS SUMMARY | 2025-01-28 17:06 | XMS_ITS ---
Author Organization [facility] Address [address] [place] [phone] Care Team Providers Care Trading Analyst Name Role Phone Svetlana SHARIF, Jass Primary Care Provider Vikas Quijano [phone] REASON FOR VISIT heme positive stools,tubular adenoma of colon Encounters Encounter Location Date Provider Diagnosis [facility] [address] [place] [phone] 08/15/2024 Vikas Garcia Plan Of Treatment No Information Progress Notes * RACHAEL HAMILTONDOB:1950 (74 yo M)Acc No.[id number]:08/15/2024 COLON WITH MAC Patient:?RACHAEL HAMILTON J Provider:?Vikas Garcia MD :1950???Age:73 Y???Sex:Male Hammad e:08/15/2024 Address:[address] [place], [place] [phone] Pcp:Jass Mota MD Subjective: * Chief Complaints: * ???1. Heme positive stools,t ubular adenoma of colon. * Medical History:? Objective: * Vitals:? Assessment: Plan: * Treatment: * * The named appointment provid er may or may not be the originator of this progress note, and it is not deemed complete until electronically signed by the appointment provider. Sign off status: Pending * Provider:?Vikas Garcia MD Date:? 024 Generated for Viktoriyai ng/Faxing/eTransmitting on:?01/28/2025 05:05 PM EDT
== END 2025-01-28 14:17 | disposition home or self-care (01) ==
LOC: HO.HMGCX 14:16
PROVIDERS: PCP Internal Medicine; Visit Provider Internal Medicine Hypertension Specialist
DX: N21.0 Calculus in bladder (principal); N18.9 Chronic kidney disease, unspecified
CPT/HCPCS: 76775

== ENCOUNTER → 2025-01-28 14:18 | Outpatient (BNV) | payer MEDICARE, SELFPAY | PROVIDERS: PCP Internal Medicine; Visit Provider Radiology Diagnostic Radiology | DX: N18.9 Chronic kidney disease, unspecified (principal) | CPT/HCPCS: 76775 ==

== ENCOUNTER 2025-02-04 10:55 | Outpatient (REF) | payer MEDICARE, SELFPAY ==
--- OUTSIDE RECORDS SUMMARY | 2025-02-04 12:50 | XMS_ITS | Clinical Summary ---
Author Organization [facility] Address [address] [place] [address] Phone Care Team Providers Care Entry Level Assistant Manager Name Role Phone Jass Mota MD Primary Care Provider [phone] Allergies Active Allergy Reactions Criticality Noted Date [...] Colorectal Cancer Screening: Sigmoidoscopy 2001 Influenza Vaccine (Season Ended) 2025 08/29/2022, 08/29/2022, 08/12/2021, Additional history exists Pneumococcal Vaccine: 65+ Years Completed 09/30/2018, 09/30/2018 Hepatitis B Vaccine Aged Out No longe r eligible based on patient's age to complete this topic Insurance [facility] MEDICARE [facility] MED[facility] Care Teams Entry Level Assistant Manager Relationship Specialty Start Date End Date Jass Mota MD [address] [place], [place] PCP - General 11/08/20
--- OUTSIDE RECORDS SUMMARY | 2025-02-04 12:50 | XMS_ITS | Patient Health Record ---
Author Organization [facility] Address [address] [place] [phone] Care Team Providers Care Marketing Reps Sports [employer] Entertainment Name Role Phone Svetlana SHARIF, Jass Primary Care Provider Vikas Quijano [phone] Allergies Allergen (clinical drug ingredient) Drug/Non Drug [...] Problem Status W/U Status Risk Notes Problem 15930529 Blood in stool (K92.1) Active confirmed Problem 977040988 Tubular adenoma of colon (D12.6) Active confirmed Problem Abnormal feces (826434436) Heme + stool (R19.5) Active confirmed Problem 35680106 Rectal bleed (K62.5) Active confirmed Problem 02876912 Pancreatic cyst (K86.2) Active confirmed Problem 61139598 Pancreas cyst (K86.2) Active confirmed Vital Signs Temperature 98.7 degrees Fahrenheit 04/23/2024 Blood pressure diastolic 00 mm Hg 04/23/2024 Height 76 in 04/23/2024 Blood pressure systolic 000 mm Hg 04/23/2024 Weight 202 lb 2 oz lbs 04/23/2024 BMI 24.60 kg/m2 04/23/2024 Encounters Encounter Location Date Provider Diagnosis [facility] [address] [place] [phone] 04/23/2024 Vikas Garcia Heme + stool R19.5 ; Tubular adenoma of colon D12.6 and Pancreatic cyst K86.2 [facility] [address] [place] [phone] 08/01/2024 Vikas Garcia Assessments Encounter Date Diagnosis [...] Coverage End Date MEDICARE OF [place] [address] [facility] [place] [address] [id number] RACHAEL HAMILTON Self - patient is the insured [employer] CLAIMS [address] [place] [phone] [id number] RACHAEL HAMILTON Self - patient is the insured Medical (General) History Medical History History ICD Code Denies HI,DM,CVA,Lung disease Hypertension Stage 2 kidney disease--sees Dr. [...]
--- OUTSIDE RECORDS SUMMARY | 2025-02-04 12:51 | XMS_ITS ---
Author Organization [facility] Address [address] [place] [address] Care Team Providers Care Hydraulic Spinner Name Role Phone Jass Mota MD Primary Care Provider Vikas Quijano [phone] Allergies Allergen (clinical drug ingredient) Drug/Non Drug [...] W/U Status Risk Notes Problem Abnormal feces (590518367) Heme + stool (R19.5) Active confirmed Vital Signs Temperature 98.7 degrees Fahrenheit 04/23/20 24 Blood pressure systolic 000 mm Hg 04/23/20 24 Blood pressure diastolic 00 mm Hg 024 Height 76 in 04/23/2024 Weight 202 lb 2 oz lbs 04/23/2024 BMI 24.60 kg/m2 04/23/2024 Encounters Encounter Location Date Provider Diagnosis [facility] [address] [place] [address] 04/23/2024 Vikas Garcia Heme + stool R19.5 [...] * RACHAEL HAMILTON JonathanDOB:1950 (73 yo M)Acc No.[id number]:04/23/2024 Progress Notes Patient:?RACHAEL HAMILTON Provider:?Vikas Garcia MD :1950???Age:73 Y???Sex:Male Hammad e:04/23/2024 Address:[address] [place], [place] [phone] Pcp:Jass Mota MD Subjective: * Chief Complaints: [...] the past year??No,?Points?0,?Interpretation?Negative.?Miscellaneous:?Marital status: . 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 ???Nonsmoker; no sig alcohol. * Medications:?TakingAcetamino phen [...] Procedure Codes:?3017F COLOR ECTAL CA SCREEN DOC [id number] TOBACCO NON-HTSWF1670 BP SCR NOT PRFRM REC REASON NOS * Follow Up:?prn * * Sign off status: Completed true * Provider:?Vikas Garcia MD Date:? 024 Generated for Ryan asif/Sumanth/John on:?02/04/2025 12:50 PM EDT History and Physical Notes * [...]
--- OUTSIDE RECORDS SUMMARY | 2025-02-04 12:51 | XMS_ITS ---
Author Organization Jass Mota MD Address [address] [place] [phone] Care Team Providers Care Conductor/Brakeman Name Role Phone Jass Mota Primary Care Provider [phone] REASON FOR VISIT FYI cx colonoscopy 08-15-2024 Encounters Encounter Location Date Provider Diagnosis Jass Mota MD [address] [facility] [address] [place] [phone] 08/05/2024 Jass Mota Plan Of Treatment Next Appt Details Provider Name:Jass grullon, 04/06/2025 07:45:00 AM, [address] [place] [address], [address] [place] [address], [phone], Provider Name:Jass grullon, 04/13/2025 01:00:00 PM, [address] [place] [address], [address], [phone], Progress Notes * RACHAEL HAMILTONDOB:1950 (73 yo M)Acc No.[id number]:08/05/2024 Patient:?RACHAEL HAMILTON :1950???Age:73 Y???Sex:Male Address:[address] [place] [address], [address] * true * Date:? Generated for Viktoriyai laya/Sumanth/eTransmitting on:?02/04/2025 12:51 PM EDT
--- OUTSIDE RECORDS SUMMARY | 2025-02-04 12:51 | XMS_ITS ---
Author Organization [facility] Address [address] [place] [phone] Care Team Providers Care Noise Tester Name Role Phone Jass Mota MD Primary Care Provider Vikas Quijano [phone] REASON FOR VISIT cancelling aug 15 colonoscopy Encounters Encounter Location Date Provider Diagnosis [facility] [address] [place] [phone] 08/01/2024 Vikas Garcia Plan Of Treatment No Information Progress Notes * RACHAEL HAMILTONDOB:1950 (73 yo M)Acc No.[id number]:08/01/2024 Patient:?RACHAEL HAMILTON :1950???Age:73 Y???Sex:Male Address:[address] [place] [address], [facility] [place], [address] * true * Date:? Generated for Printi ng/Faradhag/eTransmitting on:?02/04/2025 12:50 PM EDT
--- OUTSIDE RECORDS SUMMARY | 2025-02-04 12:52 | XMS_ITS ---
Author Organization [facility] Address [address] [place] [phone] Care Team Providers Care Safety Technician Name Role Phone Svetlana SHARIF, Jass Primary Care Provider Vikas Quijano [phone] REASON FOR VISIT heme positive stools,tubular adenoma of colon Encounters Encounter Location Date Provider Diagnosis [facility] [address] [place] [phone] 08/15/2024 Vikas Garcia Plan Of Treatment No Information Progress Notes * RACHAEL HAMILTONDOB:1950 (74 yo M)Acc No.[id number]:08/15/2024 COLON WITH MAC Patient:?RACHAEL HAMILTON J Provider:?Vikas Garcia MD :1950???Age:73 Y???Sex:Male Hammad e:08/15/2024 Address:[address] [place], [place] [phone] Pcp:Jass Mota MD Subjective: * Chief Complaints: [...] MD Date:? 024 Generated for Viktoriyai ng/Faxing/eTransmitting on:?02/04/2025 12:51 PM EDT
--- OUTSIDE RECORDS SUMMARY | 2025-02-04 12:52 | XMS_ITS ---
Author Organization Jass Mota MD Address [address] [place] [phone] Care Team Providers Care Search Engine Marketing Manager Name Role Phone Jass Mota Primary Care Provider [phone] Allergies Allergen (clinical drug ingredient) Drug/Non Drug Allergy documented on EMR Reaction Allergy Type Onset Date Status losartan Losartan Potassium hyperkalemia Drug Allergy Active Penicillin (uncoded) rash Allergy Active REASON FOR VISIT 6 MO F/U Encounters Encounter Location Date Provider Diagnosis Jass Mota MD [address] [place] [phone] 01/12/2025 Jass Mota Prediabetes R73.09 Assessments Encounter Date Diagnosis (ICD Code) Assessment Notes Treatment Notes Treatment Clinical Notes Section Notes 01/12/2025 Prediabetes (ICD-10 - R73.09) Plan Of Treatment Pending Test Test Name Order Date Hemoglobin A1c 01/12/2025 Glucose, finger stick 01/12/2025 Next Appt Details Provider Name:Jass Jolley ier, 04/06/2025 07:45:00 AM, [address], [address], [place], [place], [phone], Provider Name:Jass Jolley ier, 04/13/2025 01:00:00 PM, [address], [address], [place], [phone], Progress Notes * RACHAEL HAMILTONDOB:1950 (74 yo M)Acc No.[id number]:01/12/2025 Progress Notes Patient:?RACHAEL HAMILTON Provider:?Jass Mota MD :1950???Age:74 Y???Sex:Male Hammad e:01/12/2025 Address:[address] [place], [place] [phone] Subjective: * Chief Complaints: * ???1. 6 [...] (Alina simon)??? Plan: * Treatment: * Procedure Codes:?29110 ASSAY , GLUCOSE, BLOOD QUANT, Modifiers: QW , 89359 GLYCATED HEMOGLOBIN TEST, Modifiers: QW * * The named appointment provid er may or may not be the originator of this progress note, and it is not deemed complete until electronically signed by the appointment provider. Sign off status: Pending * Provider:?Jass Mota MD Date:?0 01/12/2025 Generated for Ryan asif/Sumanth/John on:?02/04/2025 12:51 PM EDT
--- OUTSIDE RECORDS SUMMARY | 2025-02-04 12:52 | XMS_ITS ---
Author Organization Jass Mota MD Address [address] [place], [place] [phone] Care Team Providers Care Furnace Brazer Name Role Phone Jass Mota Primary Care [...] Problem Status W/U Status Risk Notes Problem 45743230 Kidney stones (N20.0) Active confirmed Problem 69283406 Bladder stones (N21.0) Active confirmed Vital Signs Blood pressure systolic 132 mm Hg 07/14/20 24 Blood pressure diastolic 84 mm Hg 024 Height 75 in 07/14/2024 Weight 206 lbs 07/14/2024 BMI 25.75 kg/m2 07/14/2024 weight is up 8 poiunds since 04-10-24 Encounters Encounter Location Date Provider Diagnosis Jass Mota MD [address] [place] [address] [place] [phone] 07/14/2024 Jass Mota Prediabetes R73.09 ; Colon [...] Reason: Provider Name:Jass grullon, 04/06/2025 07:45:00 AM, [address] [place] [address], [address] [place] [address], [phone], Provider Name:Jass grullon, 04/13/2025 01:00:00 PM, [address] [place] [address], Suite [facility], [place], [place], [phone], Progress Notes * RACHAEL HAMILTONDOB:1950 (73 yo M)Acc No.[id number]:07/14/2024 Progress Notes Patient:?RACHAEL HAMILTON Provider:?Jass Mota MD :1950???Age:73 Y???Sex:Male Hammad e:07/14/2024 Address:[address] [place], [place] [phone] Subjective: * Chief Complaints: * ???3 month [...] Cydney Soto on Left Deltoid * Procedure Codes:?12637 ASSAY , GLUCOSE, BLOOD QUANT, Modifiers: QW 55159 GLYCATED HEMOGLOBIN TEST, Modifiers: QW 81758 FLU VACC PRSV FREE INC [id number] ADMN FLU VAC NO FEE SCHED SAME DAY * Preventive Medicine:? ??Immunizations:?Influenza?Have you had a flu shot since the most recent June 29??Yes.? * Follow Up:?6 Months * * Sign off status: Completed true * Provider:?Jass Mota MD Date:?0 07/14/2024 Generated for Ryan asif/Sumanth/eTransmitting on:?02/04/2025 12:51 PM EDT History and Physical Notes * [...]
[2025-02-04 13:57] LABS: Anion Gap 11 (12-20); Blood Urea Nitrogen 22 mg/dL (9-16); Calcium 8.7 mg/dL (8.4-10.2); Carbon Dioxide 23 mmol/L (22-29); Chloride 107 mmol/L (96-108); Estimated Glomerular Filt Rate 59; Glucose Random 100 mg/dL (60-115); Potassium 4.1 mmol/L (3.3-5.1); Sodium 137 mmol/L (135-145)
== END 2025-02-04 10:56 | disposition home or self-care (01) ==
LOC: HO.HMGCLDS 10:55
PROVIDERS: PCP Internal Medicine; Visit Provider Internal Medicine Hypertension Specialist
DX: N18.9 Chronic kidney disease, unspecified (principal); N21.0 Calculus in bladder
CPT/HCPCS: 36415; 80048; 87086

== ENCOUNTER 2025-02-12 13:19 | Outpatient (AMB) | payer MEDICARE, SELFPAY ==
--- NOTE | 2025-02-12 13:22 | HO.NEPHOV ---
Vital Signs 02/12/25 13:23 Height 6 ft 4 in Weight 211 lb 6 oz BMI 25.7 BP 118/90 H Blood Pressure Location Rt brachial Position Sitting Pulse 67 Pulse Source Pulse Oximeter Pulse Oximetry (%) 99 Oxygen Delivery Method Room Air Intake Visit Reasons: 6-8 weeks fu/Conf Fish Stringer Assembler Required: No Accompanied by: Self / Same As Patient Allergies Penicillins [PENICILLINS] Allergy (Intermediate, Verified 02/12/25 13:26) Rash clindamycin [CLINDAMYCIN] Adverse Reaction (Intermediate, Verified 02/12/25 13:26) DIARRHEA losartan Adverse Reaction (Intermediate, Verified 02/12/25 13:26) hyperkalemia Medication List - Last Reconciled 02/12/25 by Umberto Gutierrez MD allopurinol 100 mg PO DAILY cinacalcet 30 mg PO DAILY colchicine 0.6 mg PO .PRN diltiazem HCl CD 240 mg PO DAILY ferrous sulfate 325 mg PO DAILY metoprolol succinate ER 200 mg PO DAILY tamsulosin 0.4 mg PO DAILY timolol maleate 0.5% 1 drp ophthalmic (eye) QAM Do you need a note to return to daycare/school/sports/work: No HPI Comments Details: Javad is a 74 yr old man with longstanding hypertension and nephrolithiasis with CKD. Overall blood pressure has been well controlled. History of hyperuricemia and tophi. He is currently on allopurinol. Recently had another episode of gout. He was seen in [facility] and had a course of prednisone. 12/25/24 Overall doing well. No further episodes of gout ;Not on Indocin ;Has urinary incontinence for the past week or so 02/12/25 No new issues today. [facility] Medical History PAF (paroxysmal atrial fibrillation) COVID-19 vaccine series completed Acquired thrombocytopenia Skin lesion Elevated BUN Thyroid nodule Gross hematuria HTN (hypertension) Surgical History Hx of cystoscopy H/O colonoscopy Physical Exam Vital Signs: Last Vital Signs Pulse 67 02/12/25 13:23 Pulse Ox 99 02/12/25 13:23 Oxygen Delivery Method Room Air 02/12/25 13:23 BMI result Body Mass Index 25.7 Const General: comfortable; No acute distress Orientation/consciousness: patient oriented x3 Eyes General: appearance normal, both eyes and all related structures Visual Ballesteros: normal visual ballesteros by confrontation Neck Neck: Yes supple and Yes no JVD Resp Effort & Inspection: normal respiratory effort and respiratory effort not decreased Cardio Palpation: no palpable S3 and no palpable S4 Heart sounds: no rubs GI Inspection: Yes normal to inspection Palpation (GI): Soft to palpation Percussion: Yes normal to percussion Auscultation: normal bowel sounds General: Yes no CVA tenderness Back/Spine/Pelvis Back: no CVA tenderness Skin General skin exam: no petechiae and no purpura Neuro General: patient oriented x3 and no focal motor deficits Extrem General: No clubbing and No edema Results Reviewed Results Reviewed: January 2025 Right kidney: The right kidney measures 11.4 x 4.1 x 6.9 cm. Renal parenchymal echotexture and thickness are normal. There are no masses. Multiple nonobstructing calculi are again identified, including a 1.7 x 1.6 x 1.4 cm calculus at the upper pole, a 1.3 x 1.2 x 1.7 cm calculus at the lower pole, and calculi in the interpolar region measuring 2.1 x 1.9 x 3.0 cm and 2.1 x 1.2 x 1.2 cm. There is no hydronephrosis. Left Kidney: The left kidney measures 11.3 x 4.7 x 5.8 cm. Renal parenchymal echotexture and thickness are normal. There are no masses. Again seen is a 0.8 x 0.3 x 0.5 cm calculus in the interpolar region and a 0.7 x 0.6 x 0.5 cm calculus at the lower pole. There is no hydronephrosis. Nephrology Results: Hgb 14.9 g/dl (14.0-18.0) 04/03/24 WBC 6.8 X10*3/uL (4.8-10.8) 04/03/24 Plt Count 152 X10*3/uL (160-400) L 04/03/24 Sodium 137 mmol/L (135-145) 02/04/25 Potassium 4.1 mmol/L (3.3-5.1) 02/04/25 Chloride 107 mmol/L (96-108) 02/04/25 Carbon Dioxide 23 mmol/L (22-29) 02/04/25 BUN 22 mg/dL (9-16) H 02/04/25 Creatinine 1.21 mg/dL (0.5-1.4) 02/04/25 Calcium 8.7 mg/dL (8.4-10.2) 02/04/25 Urine Protein 30 (1+) mg/dL (Neg-Trace) H 04/03/24 Renal US 01/28/25 Assessment & Plan Assessment & Plan (1) HTN (hypertension): Code(s): I10 - Essential (primary) hypertension Category: Medical (2) CKD (chronic kidney disease): Code(s): N18.9 - Chronic kidney disease, unspecified Category: Medical (3) Bladder stones: Code(s): N21.0 - Calculus in bladder Category: Medical Plan 74-year-old man with hypertension nephrolithiasis and CKD. Stable CKD 3. Creatinine has bumped up to 1.6 Back down to 1.2 Most likely had hypotension No Obstruction based on USG Goal is to slow the progression disease Continue to avoid nephrotoxic agents. Maintain blood pressure less than 130/80. At present blood pressure is well controlled. Encouraged him to stand low-sodium diet. Tophi. Continue the allopurinol Discussed low purine diet. Gave a prescription for colchicine 0.6 mg total of 3 tablets. Asked him to take 1 tablet if he has an episode of gout and call me promptly Mild thrombocytopenia- ? due to allopurinol Renal stone Follows with Orders: Orders Basic Metabolic Panel 4 Months N18.9 - Chronic kidney disease, unspecified UA and rflx microscopic 4 Months N18.9 - Chronic kidney disease, unspecified Creatinine Urine 4 Months N18.9 - Chronic kidney disease, unspecified Complete Blood Count no Diff 4 Months N18.9 - Chronic kidney disease, unspecified Total Protein Urine Random 4 Months N18.9 - Chronic kidney disease, unspecified Coding Level of Care Code Est Pt Level 4 (93865) Diagnoses HTN (hypertension) I10 CKD (chronic kidney disease) N18.9 Bladder stones N21.0
[2025-02-12 13:23] VITALS: BP 118/90; PULSE 67; O2SAT 99; BMI 25.7
--- OUTSIDE RECORDS SUMMARY | 2025-02-12 16:16 | XMS_ITS | Clinical Summary ---
Author Organization [facility] Address [address] [place] [address] Phone Care Team Providers Care Drilling Rig Operator Name Role Phone Jass Mota MD Primary [...] 08/29/2022, 08/12/2021, Additional history exists Pneumococcal Vaccine: 50+ Years Completed 09/30/2018, 09/30/2018 Pneumococcal Vaccine: Peds (0 to 5 Years) and At-Risk Patients (6 to 49 Years) Discontinued 09/30/2018, 09/30/2018 Hepatitis B Vaccine Aged Out No longe r eligible based on patient's age to complete this topic Insurance [facility] [place] [address] Medicare Care Teams Drilling Rig Operator Relationship Specialty Start Date End Date Jass Mota MD [address] [place] [address] [id number] [place], [place] PCP - General 11/08/20
--- OUTSIDE RECORDS SUMMARY | 2025-02-12 16:16 | XMS_ITS | Patient Health Record ---
Author Organization Jass Mota MD Address [address] [place], [place] [id number] Care Team Providers [employer] Name Role Phone Jass Mota Primary Care Provider Allergies Allergen (clinical drug ingredient) Drug/Non Drug Allergy documented on EMR Reaction Allergy Type Onset Date Status losartan Losartan Potassium hyperkalemia Drug Allergy Active Penicillin (uncoded) rash Allergy Active Results Component Value Reference Range Notes Hemoglobin A1c Reviewed date:07/14/2024 02:15:41 PM Interpretation: Performing Lab: Notes/Report: Hemoglobin A1c 5.1 Complete Blood Count Auto Di ff Reviewed date:04/03/2024 12:46:42 PM Interpretation: Performing Lab:[facility], [address] [place] [phone] Notes/Report: White Blood Count 6.8 4.8-10.8 X10*3/uL Red Blood Count 4.93 4.60-5.80 X10*6/uL Hemoglobin 14.9 14.0-18.0 g/dl Hematocrit 44.3 42.0-52.0 % Mean Corpuscular Volume 89.9 80.0-98.0 fL Mean Corpuscular Hemoglobin 30.2 27.0-33.0 pg Mean Corpuscular HGB Conc 33.6 31.0-36.0 g/dl Red Cell Distribution Width 15.9 11.0-16.0 % Platelet Count 152 160-400 X10*3/uL Mean Platelet Volume 11.2 9.4-12.4 fL Neutrophils Percent Auto 60.6 45-73 % Imm Gran Pct Auto 5.7 0.0-0.4 % Lymphocytes Percent Auto 15.7 20-40 % Monocytes Percent Auto 12.2 2-11 % Eosinophils Percent Auto 4.2 0-4 % Basophils Percent Auto 1.6 0-2 % NRBC Pct Auto 0.0 0.0-0.2 /100WBC Neutrophils Absolute Auto 4.1 2.0-8.3 x10*3/uL Imm Gran Abs Auto 0.39 0.00-0.03 X10*3/uL Lymphocytes Absolute Auto 1.1 1.2-4.9 X10*3/uL Monocytes Absolute Auto 0.8 0.1-1.2 X10*3/uL Eosinophils Absolute Auto 0.3 0.0-0.4 X10*3/uL Basophils Absolute Auto 0.1 0.0-0.2 X10*3/uL NRBC Abs Auto 0.000 0.0-0.012 X10*3/uL C ORRECTED REPORT Comprehensive [place]. Panel Fa st Reviewed date:04/03/2024 04:28:13 PM Interpretation: Performing Lab:[facility], [address] [place] [phone] Notes/Report: Sodium 144 135-145 mmol/L Potassium 4.2 3.3-5.1 mmol/L Chloride 110 96-108 mmol/L Carbon Dioxide 25 22-29 mmol/L Anion Gap 13 12-20 Blood Urea Nitrogen 16 9-16 mg/dL Creatinine 1.21 0.5-1.4 mg/dL Estimated Glomerular Filt Rate 59 NOTE: For -[place] individuals, multiply the result by 1.210. Chronic Kidney Disease: Estimated GFR < 60 mL/min/1.73m2 Severe Kidney Disease: Estimated GFR < 15 mL/min/1.73m2 Glucose Fasting 103 60-99 mg/dL A fasting glucose from 100-125 mg/dl is considered impaired (pre-diabetes). Calcium 9.0 8.4-10.2 mg/dL Bilirubin Total 1.0 0.0-1.0 mg/dL Aspartate Amino Transferase 24 5-37 U/L Alanine Aminotransferase 26 0-40 U/L Total Protein 6.3 6.5-8.0 g/dL Albumin Level 4.0 3.5-5.0 g/dL Alkaline Phosphatase 66 39-117 U/L IRON PROFILE Reviewed date:04/03/2024 12:39:46 PM Interpretation: Performing Lab:[address] [phone] Notes/Report: Iron 65 45-160 mcg/dL Total Iron Binding Capacity 195 228-428 mcg/dL Percent Iron Saturation 33 15-50 % Unsaturated Iron Binding 130 Lipid Panel Reviewed date:04/03/2024 12:39:57 PM Interpretation: Performing Lab:[address] [phone] Notes/Report: Triglycerides 119 <150 mg/dL Desirable Triglyceride: less than 150 mg/dL Borderline High Triglyceride 150-199 mg/dL High Triglyceride: 200-499 mg/dL Very High Triglyceride: greater than or equal to 5OO mg/dL Cholesterol 124 <200 mg/dL Desirable Cholesterol: less than 200 mg/dL Borderline High Cholesterol: 200-239 mg/dL High Cholesterol: greater than 239 mg/dL LDL Cholesterol Calculated 66 <100 mg/dL Desirable LDL: less than 100 mg/dL Near Optimal/Above Optimal LDL: 110-129 mg/dL Borderline High LDL: 130-159 mg/dL High LDL: 160-189 mg/dL Very High LDL: greater than or equal to 190 mg/dL HDL Cholesterol 35 >40 mg/dL Desirable HDL: greater than 40 mg/dL Note: This HDL assay may give artificially low results in patients with liver disease. PSA,Total (Free>4and<10) Reviewed date:04/10/2024 02:40:44 PM Interpretation:KIMBERLY 04/10 PSA Performing Lab:[facility], [address] [place] [phone] Notes/Report: PSA,Total (Free>4and<10) 4.06 0.00-4.00 ng/mL PSA methodology: [place] Alinity i Chemiluminescent Microparticle Immunoassay (CMIA) TSH reflex Free T4 Reviewed date:04/03/2024 12:40:52 PM Interpretation: Performing Lab:[facility], [address] [place] [phone] Notes/Report: TSH reflex Free T4 1.72 0.32-4.0 uIU/mL UA ClnCatch+Micro w/rflx Cul t Reviewed date:04/03/2024 12:41:12 PM Interpretation: Performing Lab:[facility], [address] [place] [phone] Notes/Report: Urine, Clean Catch Color Urine Yellow Appearance Urine Cloudy PH 5.5 5.0-9.0 Glucose Urine UA Negative Negative mg/dL Urine Blood Moderate (2+) Negative Specific [place] - Urine 1.020 1.005-1.025 Urine Protein 30 (1+) Neg-Trace mg/dL Urine Ketones Negative Negative mg/dL Nitrite Urine Negative Negative Leukocyte Esterase Urine Negative Negative RBC Urine 3-5 0-2 /HPF WBC Urine 0-5 0-5 /HPF Squamous Epithelial Cell Urine 6-10 0-2 /HPF Calcium Oxalate Crystals Urine Present Other Crystals Urine Present Bacteria Urine None Seen None Seen Hyaline Casts Urine 0-2 0-2 /LPF Glucose, finger stick Reviewed date:07/14/2024 02:04:18 PM Interpretation: Performing Lab: Notes/Report: Value 97 Complete Blood Count Man Dif Reviewed date:04/03/2024 12:47:02 PM Interpretation: Performing Lab:[facility], [address] [place] [phone] Notes/Report: White Blood Count 6.8 4.8-10.8 X10*3/uL Red Blood Count 4.93 4.60-5.80 X10*6/uL Hemoglobin 14.9 14.0-18.0 g/dl Hematocrit 44.3 42.0-52.0 % Mean Corpuscular Volume 89.9 80.0-98.0 fL Mean Corpuscular Hemoglobin 30.2 27.0-33.0 pg Mean Corpuscular HGB Conc 33.6 31.0-36.0 g/dl Red Cell Distribution Width 15.9 11.0-16.0 % Platelet Count 152 160-400 X10*3/uL Mean Platelet Volume 11.2 9.4-12.4 fL NRBC Pct Auto 0.0 0.0-0.2 /100WBC NRBC Abs Auto 0.000 0.0-0.012 X10*3/uL Neutrophils Percent Manual 61 45-73 % Band Neutrophils Percent 4 3-5 % Lymphocytes Percent Manual 14 20-40 % Monocytes Percent Manual 11 2-11 % Eosinophils Percent Manual 3 0-4 % Basophils Percent Manual 1 0-2 % Myelocytes Percent 6 Neutrophils Absolute Manual 4.4 2.0-8.3 X10*3/uL Lymphocytes Absolute Manual 1.0 1.2-4.9 X10*3/uL Monocytes Absolute Manual 0.7 0.1-1.2 X10*3/uL Eosinophils Absolute Manual 0.2 0.0-0.4 X10*3/uL Basophils Abs Manual 0.1 0.0-0.2 X10*3/uL Myelocytes Absolute 0.4 Platelet Estimate NORMAL NORMAL Large Platelet PRESENT Platelet Morphology Comment NOTED RBC Morphology NORMAL PSA Free and Total Reviewed date:04/04/2024 03:43:39 PM Interpretation: Performing Lab:[facility], [address] [place] [phone] Notes/Report: Prostate Specific Ag Total 3.7 < OR = 4.0 ng/mL Percent Free Prostate Spec Ag 19 >25 % (calc) PSA(ng/mL) Free PSA(%) Estimated(x) Probability of Cancer(as%) 0-2.5 (*) Approx. 1 2.6-4.0(1) 0-27(2) 24(3) 4.1-10(4) 0-10 56 11-15 28 16-20 20 21-25 16 >or =26 8 >10(+) N/A >50 References:(1)Sascha quinn et al.:Urology 60: 469-474 (2002) (2)Dwayne et al.:J.Urol 168: 922-925 (2002) Free PSA(%) Sensitivity(%) Specificity(%) < or = 25 85 19 < or = 30 93 9 (3)Elviaona et al.:AUDELIA 277: 6001-8205 (1996) (4)Catalona et al.:AUDELIA 279: 6296-2165 (1997) (x)These estimates vary with age, ethnicity, family history and DONALDO results. (*)The diagnostic usefulness of % Free PSA has not been established in patients with total PSA below 2.6 ng/mL (+)In men with PSA above 10 ng/mL, prostate cancer risk is determined by total PSA alone. The Total PSA value from this assay system is standardized against the equimolar PSA standard. The test result will be approximately 20% higher when compared to the WHO-standardized Total PSA (Siemens assay). Comparison of serial PSA results should be interpreted with this fact in mind. PSA was performed using the Edu Anshu Immunoassay method. Values obtained from different assay methods cannot be used interchangeably. PSA levels, regardless of value, should not be interpreted as absolute evidence of the presence or absence of disease. THIS TEST WAS PERFORMED AT: [employer] [address] [place] [phone] DOMINGO MARKS MD Free Prostate Spec Ag 0.7 Basic Metabolic Panel Reviewed date:12/18/2024 12:48:38 PM Interpretation: Performing Lab:[address] [phone] Notes/Report: Sodium 143 135-145 mmol/L Potassium 3.7 3.3-5.1 mmol/L Chloride 112 96-108 mmol/L Carbon Dioxide 21 22-29 mmol/L Anion Gap 14 12-20 Blood Urea Nitrogen 26 9-16 mg/dL Creatinine 1.63 0.5-1.4 mg/dL Estimated Glomerular Filt Rate 42 Chronic Kidney Disease: Estimated GFR < 60 mL/min/1.73m2 Severe Kidney Disease: Estimated GFR < 15 mL/min/1.73m2 Glucose Random 100 60-115 mg/dL Calcium 9.5 8.4-10.2 mg/dL Uric Acid Reviewed date:12/18/2024 08:53:18 AM Interpretation: Performing Lab:[facility], [address] [place] [phone] Notes/Report: Uric Acid 7.4 3.4-7.0 mg/dL US renal BI Reviewed date:01/29/2025 10:58:34 AM Interpretation: Performing Lab: Notes/Report: [facility] [address] [place] [address] Ultrasound Report Signed Patient: Rachael Cerna MR#: [id number] : 1950 Acct:[id number] Age/Sex: 74 / M ADM Date: 01/28/25 Loc: HO.[facility]GCX Attending Dr: Umberto Madera MD Ordering Physician: Umberto Madera MD Date of Service: 01/28/25 Procedure(s): US renal BI Accession Number(s): [id number] cc: Umberto Madera MD; Jass Mota MD EXAMINATION: US KIDNEY BILATERAL HISTORY: I10 - Essential (primary) hypertension TECHNIQUE: Real-time grayscale ultrasound imaging of the kidneys was performed and images were reviewed. COMPARISON: Comparison is made with the prior examination dated 05/17/2022. FINDINGS: Right kidney: The right kidney measures 11.4 x 4.1 x 6.9 cm. Renal parenchymal echotexture and thickness are normal. There are no masses. Multiple nonobstructing calculi are again identified, including a 1.7 x 1.6 x 1.4 cm calculus at the upper pole, a 1.3 x 1.2 x 1.7 cm calculus at the lower pole, and calculi in the interpolar region measuring 2.1 x 1.9 x 3.0 cm and 2.1 x 1.2 x 1.2 cm. There is no hydronephrosis. Left Kidney: The left kidney measures 11.3 x 4.7 x 5.8 cm. Renal parenchymal echotexture and thickness are normal. There are no masses. Again seen is a 0.8 x 0.3 x 0.5 cm calculus in the interpolar region and a 0.7 x 0.6 x 0.5 cm calculus at the lower pole. There is no hydronephrosis. US/US renal BI IMPRESSION: Bilateral nephrolithiasis as described. No hydronephrosis. Electronically signed by: Vikas Wilburn MD 01/28/2025 02:48 PM EDT RP Dictated By: Vikas Wilburn MD Signed By: <Electronically signed by Vikas Wilburn MD in OV> 01/28/25 1448 DD/ 1418 TD/TT: 01/28/25 1441 Radiation Control Health Physicist: [facility] [address] [place] [address] [place] [address] Ultrasound Report Signed Patient: Rachael Cerna MR#: [id number] : 1950 Acct:[id number] Age/Sex: 74 / M ADM Date: 01/28/25 [facility] Att[facility] Dr: Umberto Madera MD Ordering Physician: Umberto Madera MD Date of Service: 01/28/25 Procedure(s): US kalina Velasquez Accession Number(s): [id number] cc: Umberto Madera MD; Jass Mota MD EXAMINATION: US DAVION EY BILATERAL HISTORY: I10 - Essential (primary) hypertension TECHNIQUE: Real-time grayscale ultrasound imaging of the kidneys was performed and images were reviewed. COMPARISON: Comparis on is made with the prior examination dated 05/17/2022. FINDINGS: Right kidney: The ri ght kidney measures 11.4 x 4.1 x 6.9 cm. Renal parenchymal echotext ure and thickness are normal. There are no masses. Multiple nonobstruct ing calculi are again identified, including a 1.7 x 1.6 x 1.4 cm calcu gene at the upper pole, a 1.3 x 1.2 x 1.7 cm calculus at the lowe r pole, and calculi in the interpolar region measuring 2.1 x 1.9 x 3.0 cm and 2.1 x 1.2 x 1.2 cm. There is no hydronephrosis. Left Kidney: The lef t kidney measures 11.3 x 4.7 x 5.8 cm. Renal parenchymal echotext ure and thickness are normal. There are no masses. Again seen is a 0.8 x 0.3 x 0.5 cm calculus in the interpolar region and a 0.7 x 0.6 x 0. 5 cm calculus at the lower pole. There is no hydronephrosis. US/US renal BI IMPRESSION: Bilateral nephrolithiasis as described. No hydronephrosis. Electronically tamara d by: Vikas Wilburn MD 01/28/2025 02:48 PM EDT RP Dictated By: Vikas Wilburn MD Signed By: <Electronically signed by Vikas Wilburn MD in OV> 01/28/25 1448 DD/ 1418 TD/TT: 01/28/25 1441 Radiation Control Health Physicist: Basic Metabolic Panel Reviewed date:02/05/2025 06:28:15 PM Interpretation: Performing Lab:[facility], [address] [place] [phone] Notes/Report: Sodium 137 135-145 mmol/L Potassium 4.1 3.3-5.1 mmol/L Chloride 107 96-108 mmol/L Carbon Dioxide 23 22-29 mmol/L Anion Gap 11 12-20 Blood Urea Nitrogen 22 9-16 mg/dL Creatinine 1.21 0.5-1.4 mg/dL Estimated Glomerular Filt Rate 59 Chronic Kidney Disease: Estimated GFR < 60 mL/min/1.73m2 Severe Kidney Disease: Estimated GFR < 15 mL/min/1.73m2 Glucose Random 100 60-115 mg/dL Calcium 8.7 8.4-10.2 mg/dL Urine Culture Reviewed date:02/05/2025 06:27:53 PM Interpretation: Performing Lab:[facility], [address] [place] [phone] Notes/Report: Urine Culture No growth. Reason For Referral Reason hydronephrosis right Diagnosis 1 Hydronephrosis, righ t (N13.30) Referral Organization Jass Mota MD Referring Provider First Name Jass Referring Provider Last Name Svetlana Referring Provider Speciality Internal M edicine Referred Provider CECILIO LIU Referred Provider Specialty Urology General Notes [place] 11:51:39 AM EDT > info faxed needs to be reviewed by traige nurse they will call patient with an appt , [place] 03/17/2024 10:24:12 AM EDT > was told to faxed MRI ABD so appt can be booked , [place] 03/20/2024 11:00:13 AM EDT > david is aware of appt Gene Annette 04/10/2024 01:57:05 PM EDT > appt rubia from February, mailed info to patient Referral Priority Routine Referral Appointment Date 05/09/2024 Reason visual hallucination Diagnosis 1 Visual hallucination (R44.1) Referral Organization Jass Mota MD Referring Provider First Name Jass Referring Provider Last Name Svetlana Referring Provider [facility] Internal edicine Referred Provider Cecilio Patrick Referred Provider Specialty Neurology General Notes [place] 01:29:11 PM EDT > info faxed with head MRI , [place] 03/20/2024 02:23:34 PM EDT > called patient with info , [place] 03/20/2024 02:29:34 PM EDT > spoke with patient regardingh his referral he is refusing to go. Called their office to cx appt for 6- 12pm and messge sent to PCP, referral iglesia be addresed Referral Priority Routine Reason stool guaiac positiv e Diagnosis 1 Stool guaiac positiv e (R19.5) Referral Organization Jass Mota MD Referring Provider First Name Jass Referring Provider Last Name Svetlana Referring Provider [facility] edicine Referred Provider Vikas West Referred Provider Specialty Gastroentero logy General Notes [place] 08:29:36 AM EDT > info faxed , [place] 04/22/2024 02:00:18 PM EDT > Dr. West's office lso called and left him a message regardig kharit, Bethanie Mendiola 05/15/2024 12:59:35 PM EDT > OFFICE NOTE RECD Referral Priority Routine Referral Appointment Date 04/23/2024 Reason chronic atrial fibri llation Diagnosis 1 Chronic atrial fibri llation (I48.20) Referral Organization Jass Mota MD Referring Provider First Name Jass Referring Provider Last Name Svetlana Referring Provider Speciality Internal M edicine Referred Provider CESARIO GALLAGHER Referred Provider Specialty Cardiology General Notes [place] 08:30:02 AM EDT > info faxed , Mo[place] 04/21/2024 02:53:47 PM EDT > booked in [facility] office also with Dr. Cody [address] floor Cardio, [place] 04/28/2024 01:13:53 PM EDT > left voice message on machine and also mailed info to patient Referral Priority Routine Referral Appointment Date 05/05/2024 Medications Medication SIG (Take, Route, Frequency, Duration) Notes Start Date End Date Status Tamsulosin HCl 0.4 MG TAKE 1 CAPSULE BY MOUTH EVERY DAY for 30 Active Loperamide HCl 2 MG 1 capsule as needed Orally Four times a day Not-Taki ng Ferrous Sulfate 325 (65 Fe) MG 1 tablet Orally Once a day Active Allopurinol 100 MG 1 tablet Orally Once a day Active dilTIAZem HCl ER 240 MG 1 capsule on an empty stomach in the morning Orally Once a day Active Cinacalcet HCl 30 MG 1 tablet with food or after a meal Orally Once a day for 30 day(s) Active Acetaminophen 500 MG 2 tablet as needed every 6 hours Active Indomethacin 50 MG 1 capsule with food Orally Three times a day for 14 days 09/12/2013 Not-Taking Metoprolol Succinate ER 200 MG TAKE 1 TABLET BY MOUTH EVERY DAY for 30 Active Timolol Maleate 0.5 % 1 drop into affect ed eye Ophthalmic Once a day Active Benefiber - Orally Not-Taki ng Triamcinolone Acetonide 0.1 % 1 application Externally Two times a Week Active Diltiazem CD 180 MG 1 capsule Orally Onc e a day Not-Taking Immunizations Vaccine Route Administration Date Status Comme nts Flu Vaccine Unknown 11/08/2012 Administered [facility] Fluarix Quadrivalent IM Intramuscular 09/02/2018 Administe red Prevnar 13 Unknown 09/30/2018 Administered [facility] Influenza High Dose IM Intramuscular 09/01/2019 Administer ed pt had the vaccine at [facility] in [place]. Fluarix Quadrivalent Unknown 08/10/2020 Administered [facility] SARS-COV-2 Pfizer Unknown 01/07/2021 Administered SARS-COV-2 Pfizer Unknown 01/28/2021 Administered Influenza High Dose Unknown 08/12/2021 Administered [facility] SARS-COV-2 Pfizer Unknown 08/28/2021 Administered Influenza High Dose IM Intramuscular 08/29/2022 Administer ed Influenza High Dose Unknown 09/04/2023 Administered [facility] Influenza High Dose IM Intramuscular 07/14/2024 Administer ed Flu Vaccine Unknown 01/26/2015 Refused Fluarix Quadrivalent Unknown 08/01/2016 Refused Fluarix Quadrivalent Unknown 09/10/2017 Refused Prevnar 13 Unknown 03/19/2018 Refused TDaP Unknown 02/03/2019 Refused Social History Tobacco Use: Social History Observation Description Date Details (start date - stop date) Never Smoker NA - NA Tobacco Use/Smoking Question Answer Notes Patient is a nonsmoker Additional Findings: Tobacco Non-User Cu rrent non-smoker, currently using no form of tobacco Alcohol Screen Question Answer Notes Did you have a drink containing alcohol in the p ast year? 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 confirmed Problem 97258988 Kidney stone (N20.0) Active confirmed Problem 81701062 Essential hypertension (I10) Active confirmed Problem 0011306 Prediabetes (R73.09) Active confirmed Problem 823690882 Low HDL (under 4 0) (E78.6) Active confirmed Problem 20818628 Hyperparathyroid ism (E21.3) Active confirmed Problem 65625565 Proteinuria (R80.9) Active confirmed Problem Iron deficiency anemia (97273076) Other iron deficiency anemia (D50.8) Active confirmed Problem Metastatic cancer (819063577) Metastatic cancer (C80.1) Active confirmed Problem 19667192 Kidney stones (N20.0) Active confirmed Problem 25196102 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 Problem 556756496 BMI 34.0-34.9,ad ult (Z68.34) Active confirmed Problem 280490135 Stage 2 chronic kidney disease (N18.2) Active confirmed Problem 81548969 Bladder stone (N21.0) Active confirmed Problem 64524584 Hydronephrosis w ith urinary obstruction due to ureteral calculus (N13.2) Active confirmed Problem 371563932 Pancreatic mass (K86.89) Active confirmed Problem 208935262 Chronic atrial fibrillation (I48.20) Active confirmed Problem 163420063 Tophi gouty (M1A.9XX1) Active confirmed Problem 14467109 Visual hallucina tion (R44.1) Active confirmed Problem 32365201 Bladder stones (N21.0) Active confirmed Vital Signs Blood pressure diastolic 84 mm Hg 07/14/2024 andrez ght is up 8 poiunds since 04-10-24 Height 75 in 07/14/2024 weight is up 8 poiunds since 04-10-24 Blood pressure systolic 132 mm Hg 07/14/2024 weig ht is up 8 poiunds since 04-10-24 Weight 206 lbs 07/14/2024 weight is up 8 poiunds since 04-10-24 BMI 25.75 kg/m2 07/14/2024 weight is up 8 poiunds since 04-10-24 Encounters Encounter Location Date Provider Diagnosis Jass Mota MD [address] [place] [id number] 04/03/2024 Jass Mota Prediabetes R73.09 ; Essential hypertension I10 ; Low HDL (under 40) E78.6 ; Thrombocytopenia D69.6 ; Thyroid nodule E04.1 ; Other iron deficiency anemia D50.8 and Stage 2 chronic kidney disease N18.2 Jass Mota MD [address] [place] [id number] 03/03/2024 Jass Mota Visual hallucination R44.1 and Impacted cerumen H61.20 Jass Mota MD [address] [place] [id number] 03/11/2024 Jass Mota Hydronephrosis, righ t N13.30 and Mass of pancreas K86.89 Jass Mota MD [address] [place] [id number] 04/10/2024 Jass Mota Proteinuria R80.9 ; Hydronephrosis with urinary obstruction due to ureteral calculus N13.2 ; Rising PSA level R97.20 ; Stool guaiac positive R19.5 ; Chronic atrial fibrillation I48.20 ; Prediabetes R73.09 ; Essential hypertension I10 ; Other iron deficiency anemia D50.8 and Tophi gouty M1A.9XX1 Jass Mota MD [address] [place] [id number] 07/14/2024 Jass Mota Prediabetes R73.09 ; Colon cancer screening Z12.11 ; Kidney stones N20.0 ; Encounter for immunization Z23 ; Bladder stones N21.0 and Paroxysmal atrial fibrillation I48.0 Jass Mota MD [address] [place] [address] [id number] 03/17/2024 Jass Mota MD [address] [place] [id number] 03/20/2024 Jass Mota MD [address] [id number] 03/25/2024 Jass Mota MD [address] [place] [id number] 06/26/2024 Jass Mota MD [address] [place] [id number] 08/05/2024 Jass Mota Assessments Encounter Date Diagnosis (ICD Code) Assessment Notes Treatment Notes Treatment Clinical Notes Section Notes 04/03/2024 Prediabetes (ICD-10 - R73.09) 04/03/2024 Essential hypertension (ICD-10 - I10) 03/03/2024 Visual hallucination (ICD-10 - R44.1) had been taking a large amount of tylenol/ has not had any more hallucintions. was aware that they were not real/ mri didn't show any significant lesions/ will observe 03/03/2024 Impacted cerumen (ICD-10 - H61.20) 03/11/2024 Hydronephrosis, right (ICD-10 - N13.30) have gone over the results of the mri. has an new hydronephrosis. told of the urgency with potential loss of the kidney 03/11/2024 Mass of pancreas (ICD-10 - K86.89) needs mri abdomen with and without contrast in 2 years/ order printed and put in future folder 04/10/2024 Proteinuria (ICD-10 - R80.9) will continue to monitor 04/10/2024 Hydronephrosis with urinary obstruction due to ureteral calculus (ICD-10 - N13.2) needs to see urologist 07/14/2024 Prediabetes (ICD-10 - R73.09) 07/14/2024 Colon cancer screening (ICD-10 - Z12.11) have given him a script at his request for [facility] colon cancer screen 04/03/2024 Low HDL (under 40) (ICD-10 - E78.6) 04/10/2024 Rising PSA level (ICD-10 - R97.20) needs to see urology. had appt with urology but canceled it due to gout attack/ appt rebooked for 05-09-2024 at 11am 07/14/2024 Kidney stones (ICD-10 - N20.0) knows that he could damage his kidneys without doing anything about it 04/03/2024 Thrombocytopenia (ICD-10 - D69.6) 04/10/2024 Stool guaiac positive (ICD-10 - R19.5) make appt with dr west 07/14/2024 Encounter for immunization (ICD-10 - Z23) 04/03/2024 Thyroid nodule (ICD-10 - E04.1) 04/10/2024 Chronic atrial fibrillation (ICD-10 - I48.20) needs to see cardiology. he will make appt/ was advised to go on anticoagulants in the past. needs to see cardiology. has a melanie 1 and has explained to him the risk of .6 07/14/2024 Bladder stones (ICD-10 - N21.0) he understands it could lead to bladder cancer 04/03/2024 Other iron deficiency anemia (ICD-10 - D50.8) 04/10/2024 Prediabetes (ICD-10 - R73.09) stable, no need for medication at this time 07/14/2024 Paroxysmal atrial fibrillation (ICD-10 - I48.0) won't take eliquis. 04/03/2024 Stage 2 chronic kidney disease (ICD-10 - N18.2) 04/10/2024 Essential hypertension (ICD-10 - I10) stable, will contnue current regiment 04/10/2024 Other iron deficiency anemia (ICD-10 - D50.8) stable, will continue current regiment 04/10/2024 Tophi gouty (ICD-10 - M1A.9XX1) stable, will continue current regiment Plan Of Treatment Pending Test Test Name Order Date Electrocardiogram (EKG) 04/03/2019 MRI ABD W&WO CONTRAST 02/12/2024 MRI BRAIN NO CONTRAST 02/12/2024 US RENAL BILATERAL 04/14/2022 Future Test Test Name Order Date MRI ABD W&WO CONTRAST 08/05/2021 Next Appt Details Provider Name:Jass Jolley ier, 04/06/2025 07:45:00 AM, [address] [place] [address], [address], [phone], Provider Name:Jass Jolley ier, 04/13/2025 01:00:00 PM, [address] [place] [address], [address] [facility], [place], [place], [phone], Insurance Providers Payer Name Payer Address Payer Phone Subscriber Number Group Number Insured Name Patient Relationship to Insured Coverage Start Date Coverage End Date MEDICARE NHIC [place] [address] [place] [address] [id number] RACHAEL CERNA Self - patient is the insured [employer] [place] [address] [place] [phone] [id number] RACHAEL CERNA Self - patient is the insured Medical (General) History Medical History History ICD Code discussed colonoscopy 2011 a nd 2012 and 2013,2016 refused again in 2017; colonoscopy done 02/14/[address] West - repeat 5 years urology w/u for hematuria with cysto and ct 2019 thyroid nodule biopsied and was neg
--- OUTSIDE RECORDS SUMMARY | 2025-02-12 16:16 | XMS_ITS ---
Author Organization [facility] Address [address] [place] [phone] Care Team Providers Care Building Certifier Name Role Phone Jass Mota MD Primary Care Provider Vikas Quijano [phone] Allergies Allergen (clinical drug ingredient) Drug/Non Drug [...] W/U Status Risk Notes Problem Abnormal feces (005970426) Heme + stool (R19.5) Active confirmed Vital Signs Temperature 98.7 degrees Fahrenheit 04/23/20 24 Blood pressure systolic 000 mm Hg 04/23/20 24 Blood pressure diastolic 00 mm Hg 024 Height 76 in 04/23/2024 Weight 202 lb 2 oz lbs 04/23/2024 BMI 24.60 kg/m2 04/23/2024 Encounters Encounter Location Date Provider Diagnosis [facility] [address] [place] [address] 04/23/2024 Vikas Garcia Heme + stool R19.5 [...] * RACHAEL HAMILTON JonathanDOB:1950 (73 yo M)Acc No.[id number]:04/23/2024 Progress Notes Patient:?RACHAEL HAMILTON Provider:?Vikas Garcia MD :1950???Age:73 Y???Sex:Male Hammad e:04/23/2024 Address:[address] [place], [place] [phone] Pcp:Jass Mota MD Subjective: * Chief Complaints: [...] the past year??No,?Points?0,?Interpretation?Negative.?Miscellaneous:?Marital status: . 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 ???Nonsmoker; no sig alcohol. * Medications:?TakingAcetamino phen [...] Procedure Codes:?3017F COLOR ECTAL CA SCREEN DOC [id number] TOBACCO NON-BZIDP2205 BP SCR NOT PRFRM REC REASON NOS * Follow Up:?prn * * Sign off status: Completed true * Provider:?Vikas Garcia MD Date:? 024 Generated for Ryan asif/Sumatnh/John on:?02/12/2025 04:16 PM EDT History and Physical Notes * [...]
--- OUTSIDE RECORDS SUMMARY | 2025-02-12 16:16 | XMS_ITS | Patient Health Record ---
Author Organization [facility] Address [address] [place] [address] Care Team Providers Care Cocoa Milling Machine Operator Name Role Phone Svetlana SHARIF, Jass Primary Care Provider Vikas Quijano [phone] Allergies Allergen (clinical drug ingredient) Drug/Non Drug [...] Problem Status W/U Status Risk Notes Problem 45102582 Blood in stool (K92.1) Active confirmed Problem 738527112 Tubular adenoma of colon (D12.6) Active confirmed Problem Abnormal feces (648488268) Heme + stool (R19.5) Active confirmed Problem 15035183 Rectal bleed (K62.5) Active confirmed Problem 69648612 Pancreatic cyst (K86.2) Active confirmed Problem 28663166 Pancreas cyst (K86.2) Active confirmed Vital Signs Temperature 98.7 degrees Fahrenheit 04/23/2024 Blood pressure diastolic 00 mm Hg 04/23/2024 Height 76 in 04/23/2024 Blood pressure systolic 000 mm Hg 04/23/2024 Weight 202 lb 2 oz lbs 04/23/2024 BMI 24.60 kg/m2 04/23/2024 Encounters Encounter Location Date Provider Diagnosis [facility] [address] [place] [phone] 04/23/2024 Vikas Garcia Heme + stool R19.5 ; Tubular adenoma of colon D12.6 and Pancreatic cyst K86.2 [facility] [address] [place] [phone] 08/01/2024 Vikas Garcia Assessments Encounter Date Diagnosis [...] Order Date BUN 07/02/2020 BUN 04/05/2021 CREATININE 04/05/2021 CREATININE 07/02/2020 CA 19-9 03/31/2020 MRI ABD W&WO CONTRAST 07/02/2020 MRI ABD W&WO CONTRAST 04/05/2021 Future Test Test Name Order Date COLONOSCOPY 02/06/2018 COLONOSCOPY 04/23/2024 Insurance Providers Payer Name Payer Address Payer Phone Subscriber Number Group Number Insured Name Patient Relationship to Insured Coverage Start Date Coverage End Date MEDICARE OF [place] [address] [facility] [place] [address] [id number] RACHAEL HAMILTON Self - patient is the insured MED[employer] ATT[employer] CLAIMS [address] [place] [address] [phone] [id number] RACHAEL HAMILTON Self - patient is the insured Medical (General) History Medical History History ICD Code Denies OR,DM,CVA,Lung disease Hypertension Stage 2 kidney disease--sees Dr. [...]
--- OUTSIDE RECORDS SUMMARY | 2025-02-12 16:17 | XMS_ITS ---
Author Organization [facility] Address [address] [place] [phone] Care Team Providers Care Blanking Press Operator Name Role Phone Svetlana SHARIF, Jass Primary Care Provider Vikas Quijano [phone] REASON FOR VISIT heme positive stools,tubular adenoma of colon Encounters Encounter Location Date Provider Diagnosis [facility] [address] [place] [phone] 08/15/2024 Vikas Garcia Plan Of Treatment No Information Progress Notes * RACHAEL HAMILTONDOB:1950 (74 yo M)Acc No.[id number]:08/15/2024 COLON WITH MAC Patient:?RACHAEL HAMILTON J Provider:?Vikas Garcia MD :1950???Age:73 Y???Sex:Male Hammad e:08/15/2024 Address:[address] [place], [place] [phone] Pcp:Jass Mota MD Subjective: * Chief Complaints: [...] MD Date:? 024 Generated for Viktoriyai ng/Faxing/eTransmitting on:?02/12/2025 04:16 PM EDT
--- OUTSIDE RECORDS SUMMARY | 2025-02-12 16:17 | XMS_ITS ---
Author Organization Jass Mota MD Address [address] [place], [place] [phone] Care Team Providers Care Socket Puller Name Role Phone Jass Mota Primary [...] Problem Status W/U Status Risk Notes Problem 64509582 Kidney stones (N20.0) Active confirmed Problem 39961344 Bladder stones (N21.0) Active confirmed Vital Signs Blood pressure systolic 132 mm Hg 07/14/20 24 Blood pressure diastolic 84 mm Hg 024 Height 75 in 07/14/2024 Weight 206 lbs 07/14/2024 BMI 25.75 kg/m2 07/14/2024 weight is up 8 poiunds since 04-10-24 Encounters Encounter Location Date Provider Diagnosis Jass Mota MD [address] [place] [address] [place] [phone] 07/14/2024 Jass Mota Prediabetes R73.09 ; Colon [...] Reason: Provider Name:Jass grullon, 04/06/2025 07:45:00 AM, [address] [place] [address], [address] [place] [address], [phone], Provider Name:Jass grullon, 04/13/2025 01:00:00 PM, [address] [place] [address], [address] [facility], [place], [phone], Progress Notes * RACHAEL HAMILTONDOB:1950 (73 yo M)Acc No.[id number]:07/14/2024 Progress Notes Patient:?RACHAEL HAMILTON Provider:?Jass Mota MD :1950???Age:73 Y???Sex:Male Hammad e:07/14/2024 Address:[address] [place], [place] [phone] Subjective: * Chief Complaints: * ???3 month [...] Cydney Soto on Left Deltoid * Procedure Codes:?54808 ASSAY , GLUCOSE, BLOOD QUANT, Modifiers: QW 41546 GLYCATED HEMOGLOBIN TEST, Modifiers: QW 26317 FLU VACC PRSV FREE INC [id number] ADMN FLU VAC NO FEE SCHED SAME DAY * Preventive Medicine:? ??Immunizations:?Influenza?Have you had a flu shot since the most recent June 29??Yes.? * Follow Up:?6 Months * * Sign off status: Completed true * Provider:?Jass Mota MD Date:?0 07/14/2024 Generated for Ryan asif/Sumanth/eTransmitting on:?02/12/2025 04:17 PM EDT History and Physical Notes * [...]
--- OUTSIDE RECORDS SUMMARY | 2025-02-12 16:17 | XMS_ITS ---
Author Organization Jass Mota MD Address [address] [place] [phone] Care Team Providers Care Pretzel Twister Name Role Phone Jass Mota Primary Care Provider Allergies Allergen (clinical drug ingredient) Drug/Non Drug Allergy documented on EMR Reaction Allergy Type Onset Date Status losartan Losartan Potassium hyperkalemia Drug Allergy Active Penicillin (uncoded) rash Allergy Active REASON FOR VISIT 6 MO F/U Encounters Encounter Location Date Provider Diagnosis Jass Mota MD [address] [place] [phone] 01/12/2025 Jass Mota Prediabetes R73.09 Assessments Encounter Date Diagnosis (ICD Code) Assessment Notes Treatment Notes Treatment Clinical Notes Section Notes 01/12/2025 Prediabetes (ICD-10 - R73.09) Plan Of Treatment Pending Test Test Name Order Date Hemoglobin A1c 01/12/2025 Glucose, finger stick 01/12/2025 Next Appt Details Provider Name:Jass Jolley ier, 04/06/2025 07:45:00 AM, [address], [address], [place], [place], [phone], Provider Name:Jass Jolley ier, 04/13/2025 01:00:00 PM, [address], [address], [place], [phone], Progress Notes * RACHAEL HAMILTONDOB:1950 (74 yo M)Acc No.[id number]:01/12/2025 Progress Notes Patient:?RACHAEL HAMILTON Provider:?Jass Mota MD :1950???Age:74 Y???Sex:Male Hammad e:01/12/2025 Address:[address] [place], [place] [phone] Subjective: * Chief Complaints: * ???1. 6 [...] (Alina simon)??? Plan: * Treatment: * Procedure Codes:?51351 ASSAY , GLUCOSE, BLOOD QUANT, Modifiers: QW , 05067 GLYCATED HEMOGLOBIN TEST, Modifiers: QW * * The named appointment provid er may or may not be the originator of this progress note, and it is not deemed complete until electronically signed by the appointment provider. Sign off status: Pending * Provider:?Jass Mota MD Date:?0 01/12/2025 Generated for Ryan asif/Sumanth/John on:?02/12/2025 04:16 PM EDT
--- OUTSIDE RECORDS SUMMARY | 2025-02-12 16:17 | XMS_ITS ---
Author Organization Jass Mota MD Address [address] [place] [phone] Care Team Providers Care Healthcare Administration Intern Name Role Phone Jass Mota Primary Care Provider REASON FOR VISIT FYI cx colonoscopy 08-15-2024 Encounters Encounter Location Date Provider Diagnosis Jass Mota MD [facility] [address] [place] [phone] 08/05/2024 Jass Mota Plan Of Treatment Next Appt Details Provider Name:Jass grullon, 04/06/2025 07:45:00 AM, [address] [place] [address], [address] [place] [address], [phone], Provider Name:Jass grullon, 04/13/2025 01:00:00 PM, [address] [place] [address], [address], [phone], Progress Notes * RACHAEL HAMILTONDOB:1950 (73 yo M)Acc No.[id number]:08/05/2024 Patient:?RACHAEL HAMILTON :1950???Age:73 Y???Sex:Male Address:[address] [place] [address], [phone] * true * Date:? Generated for Viktoriyai laya/Sumanth/eTransmitting on:?02/12/2025 04:16 PM EDT
--- OUTSIDE RECORDS SUMMARY | 2025-02-12 16:17 | XMS_ITS ---
Author Organization [facility] Address [address] [place] [phone] Care Team Providers Care Laborer Pipelines Name Role Phone Jass Mota MD Primary Care Provider Vikas Quijano [phone] REASON FOR VISIT cancelling aug 15 colonoscopy Encounters Encounter Location Date Provider Diagnosis [facility] [address] [place] [phone] 08/01/2024 Vikas Garcia Plan Of Treatment No Information Progress Notes * RACHAEL HAMILTONDOB:1950 (73 yo M)Acc No.[id number]:08/01/2024 Patient:?RACHAEL HAMILTON :1950???Age:73 Y???Sex:Male Address:[address] [place] [address], [facility] [place], [id number] * true * Date:? Generated for Printi ng/Faxing/eTransmitting on:?02/12/2025 04:16 PM EDT
== END 2025-02-12 13:38 | disposition home or self-care (01) ==
LOC: HO.HKA 13:19
PROVIDERS: PCP Internal Medicine; Visit Provider Internal Medicine Hypertension Specialist
DX: I12.9 Hypertensive chronic kidney disease with stage 1 through stage 4 chronic kidney disease, or unspecified chronic kidney disease (principal); N18.9 Chronic kidney disease, unspecified; N21.0 Calculus in bladder
CPT/HCPCS: 99214

== ENCOUNTER → 2025-02-12 13:19 | Outpatient (BNVA) | payer MEDICARE, SELFPAY | PROVIDERS: PCP Internal Medicine; Visit Provider Internal Medicine Hypertension Specialist | DX: I12.9 Hypertensive chronic kidney disease with stage 1 through stage 4 chronic kidney disease, or unspecified chronic kidney disease (principal); N21.0 Calculus in bladder; N18.9 Chronic kidney disease, unspecified | CPT/HCPCS: 99212 ==

== ENCOUNTER 2025-04-03 09:04 | Outpatient (REF) | payer MEDICARE, SELFPAY ==
--- OUTSIDE RECORDS SUMMARY | 2025-04-03 09:29 | XMS_ITS | Patient Health Record ---
Author Organization [facility] [place] [facility] Address [address] [place] [phone] Care Team Providers Care Manager Intern Name Role Phone Svetlana SHARIF, Jass Primary Care Provider Vikas Quijano [phone] Allergies Allergen (clinical drug ingredient) Drug/Non Drug [...] Problem Status W/U Status Risk Notes Problem 36792313 Blood in stool (K92.1) Active confirmed Problem 335702373 Tubular adenoma of colon (D12.6) Active confirmed Problem Abnormal feces (531652294) Heme + stool (R19.5) Active confirmed Problem 12967154 Rectal bleed (K62.5) Active confirmed Problem 80800470 Pancreatic cyst (K86.2) Active confirmed Problem 42693720 Pancreas cyst (K86.2) Active confirmed Vital Signs Temperature 98.7 degrees Fahrenheit 04/23/2024 Blood pressure diastolic 00 mm Hg 04/23/2024 Height 76 in 04/23/2024 Blood pressure systolic 000 mm Hg 04/23/2024 Weight 202 lb 2 oz lbs 04/23/2024 BMI 24.60 kg/m2 04/23/2024 Encounters Encounter Location Date Provider Diagnosis [facility] [address] [place] [phone] 04/23/2024 Vikas Garcia Heme + stool R19.5 ; Tubular adenoma of colon D12.6 and Pancreatic cyst K86.2 [facility] [address] [place] [phone] 08/01/2024 Vikas Garcia Assessments Encounter Date Diagnosis [...] Coverage End Date MEDICARE OF [place] [address] [facility] [place] [address] [id number] RACHAEL HAMILTON Self - patient is the insured MED[employer] ATTN CLAIMS [address] [place] [address] [phone] [id number] RACHAEL HAMILTON Self - patient is the insured Medical (General) History Medical History History ICD Code Denies [place],DM,CVA,Lung disease Hypertension Stage 2 kidney disease--sees Dr. [...]
[2025-04-03 10:12] LABS: MANUAL DIFF FLAG NO
[2025-04-03 10:30] LABS: Basophils Absolute Auto 0.1 X10*3/uL (0.0-0.2); Basophils Percent Auto 1.9 % (0-2); Eosinophils Absolute Auto 0.3 X10*3/uL (0.0-0.4); Eosinophils Percent Auto 4.8 % (0-4); Hematocrit 45.6 % (42.0-52.0); Hemoglobin 15.4 g/dl (14.0-18.0); Imm Gran Pct Auto 3.1 % (0.0-0.4); Lymphocytes Percent Auto 15.9 % (20-40); Mean Corpuscular HGB Conc 33.8 g/dl (31.0-36.0); Mean Corpuscular Hemoglobin 31.5 pg (27.0-33.0); Mean Corpuscular Volume 93.3 fL (80.0-98.0); Mean Platelet Volume 11.3 fL (9.4-12.4); Monocytes Absolute Auto 0.7 X10*3/uL (0.1-1.2); Monocytes Percent Auto 10.5 % (2-11); Neutrophils Absolute Auto 4.1 x10*3/uL (2.0-8.3); Neutrophils Percent Auto 63.8 % (45-73); Platelet Count 124 X10*3/uL (160-400); Red Blood Count 4.89 X10*6/uL (4.60-5.80); Red Cell Distribution Width 14.6 % (11.0-16.0); White Blood Count 6.4 X10*3/uL (4.8-10.8)
[2025-04-03 10:43] LABS: Appearance Urine Clear; Color Urine Yellow; Glucose Urine UA Negative (Negative); Leukocyte Esterase Urine Trace (Negative); Nitrite Urine Negative (Negative); PH 5.5 (5.0-9.0); Specific Gravity - Urine 1.015 (1.005-1.025); UMIC TRIGGER UACC YES; Urine Blood Moderate (2+) (Negative); Urine Ketones Negative (Negative); Urine Protein 30 (1+) mg/dL (Neg-Trace)
[2025-04-03 11:05] LABS: Estimated Average Glucose 105 mg/dL; Hemoglobin A1C 138.1908 umol/L; Hemoglobin A1c % 5.3 % (<6.0)
[2025-04-03 11:05] LABS: Bacteria Urine None Seen (None Seen); WBC Urine 0-5 /HPF (0-5)
[2025-04-03 11:58] LABS: Alanine Aminotransferase 34 U/L (0-40); Albumin Level 4.6 g/dL (3.5-5.0); Alkaline Phosphatase 67 U/L (39-117); Anion Gap 12 (12-20); Aspartate Amino Transferase 33 U/L (5-37); Bilirubin Total 1.3 mg/dL (0.0-1.0); Blood Urea Nitrogen 25 mg/dL (9-16); Calcium 9.2 mg/dL (8.4-10.2); Carbon Dioxide 25 mmol/L (22-29); Chloride 110 mmol/L (96-108); Cholesterol 137 mg/dL (<200); Estimated Glomerular Filt Rate 47; Glucose Fasting 99 mg/dL (60-99); HDL Cholesterol 51 mg/dL (>40); Iron 97 mcg/dL (45-160); LDL Cholesterol Calculated 72 mg/dL (<100); Percent Iron Saturation 44 % (15-50); Potassium 4.6 mmol/L (3.3-5.1); Sodium 142 mmol/L (135-145); Total Iron Binding Capacity 221 mcg/dL (228-428); Total Protein 6.7 g/dL (6.5-8.0); Triglycerides 70 mg/dL (<150); Unsaturated Iron Binding 124 ug/dL
[2025-04-03 12:22] LABS: Creatinine Urine 121.14 mg/dL; Microalbum/Creatinine Ratio Ur 142.8 ug/mg cr (<30)
== END 2025-04-03 09:05 | disposition home or self-care (01) ==
LOC: HO.HMGCLDS 09:04
PROVIDERS: PCP Internal Medicine; Visit Provider Internal Medicine
DX: I12.9 Hypertensive chronic kidney disease with stage 1 through stage 4 chronic kidney disease, or unspecified chronic kidney disease (principal); N18.2 Chronic kidney disease, stage 2 (mild); D50.8 Other iron deficiency anemias; R73.09 Other abnormal glucose; Z12.5 Encounter for screening for malignant neoplasm of prostate
CPT/HCPCS: 36415; 80053; 80061; 81001; 82043; 82570; 83036; 83540; 84153; 85025

== ENCOUNTER 2025-06-12 08:43 | Outpatient (REF) | payer MEDICARE, SELFPAY ==
--- OUTSIDE RECORDS SUMMARY | 2025-04-13 09:00 | XMS_ITS ---
Author Organization Jass Mota MD Address [address] [place], [place] [id number] Care Team Providers Care Distance Learning Technician Name Role Phone Jass Mota Primary Care Provider [phone] Allergies Allergen (clinical drug ingredient) Drug/Non Drug [...] Location Date Provider Diagnosis Jass Mota MD [address] [place] [address] [place] [phone] 04/13/2025 Jass Mota Thrombocytopenia D69 .6 ; [...] ue current regiment Depression screening negative screen Future Test Test Name Order Date Complete Blood Count Auto Diff Next Appt Details Follow Up: 6 Months, Reason: Provider Name:Jass grullon, 10/13/2025 01:30:00 PM, [address] [place] [address], [address], [phone], Provider Name:Jass grullon, 04/13/2026 07:15:00 AM, [address] [place] [address], Suite [facility], [place], [place], [phone], Provider Name:Jass grullon, 04/20/2026 01:00:00 PM, [address] [place] [address], [place] [address], [place], [place], [phone], Progress Notes * RACHAEL HAMILTONB:1950 (74 yo M)Acc No.[id number]:04/13/2025 Patient: RACHAEL MALLOY Provider: Perla Mota MD :1950 A ge:74 Y S ex:Male Date:04/13/2025 Address:[address] [place], [place] [address] [id number] Subjective: * Chief Complaints: * C omp [...] Blood Moderate (2+) A Negative - Specific [place] - Urine 1.015 1.005-1.025 - Urine Protein [...] 0 04/13/2025 Generated for Ryan asif/Sumanth/John on: 0 06/12/2025 09:00 AM EDT History and Physical Notes * HPI [...]
--- OUTSIDE RECORDS SUMMARY | 2025-06-12 09:01 | XMS_ITS | Patient Health Record ---
Author Organization [facility] Address [address] [place] [phone] Care Team Providers Care Energy Conservation Technician Name Role Phone Svetlana SHARIF, Jass Primary Care Provider Vikas Quijano [phone] Allergies Allergen (clinical drug ingredient) Drug/Non Drug [...] Problem Status W/U Status Risk Notes Problem 75258649 Blood in stool (K92.1) Active confirmed Problem 199259198 Tubular adenoma of colon (D12.6) Active confirmed Problem Abnormal feces (625854611) Heme + stool (R19.5) Active confirmed Problem 03438299 Rectal bleed (K62.5) Active confirmed Problem 51524715 Pancreatic cyst (K86.2) Active confirmed Problem 26955913 Pancreas cyst (K86.2) Active confirmed Encounters Encounter Location Date Provider Diagnosis [facility] [address] [place] [address] 08/01/2024 Vikas Garcia Plan Of Treatment Pending Test Test Name [...] Date MEDICARE OF [place] [address] [place] [address] [phone] [id number] RACHAEL HAMILTON Self - patient is the insured [employer] CLAIMS [address] [place] [address] [phone] [id number] RACHAEL HAMILTON Self - patient is the insured Medical (General) History Medical History History ICD Code Denies CA,DM,CVA,Lung disease Hypertension Stage 2 kidney disease--sees Dr. [...]
--- OUTSIDE RECORDS SUMMARY | 2025-06-12 09:01 | XMS_ITS | Clinical Summary ---
Author Organization [facility] Address [address] [place] [address] [place] [address] Phone Care Team Providers Care Franchise Manager Name Role Phone Jass Mota MD [...] Cancer Screening: Sigmoidoscopy 2001 Influenza Vaccine (#1) 2025 , 08/29/2022, 08/12/2021, Additional history exists Pneumococcal Vaccine: 50+ Years Completed 09/30/2018, 09/30/2018 Pneumococcal Vaccine: Peds (0 to 5 Years) and At-Risk Patients (6 to 49 Years) Discontinued 09/30/2018, 09/30/2018 Hepatitis B Vaccine Aged Out No longe r eligible based on patient's age to complete this topic Insurance [facility] [place] [address] [place] [address] Medicare Care Teams Franchise Manager Relationship Specialty Start Date End Date Jass Mota MD [address] [place] [address] [id number] [place], [place] PCP - General 11/08/20
[2025-06-12 10:19] LABS: Appearance Urine Clear; Glucose Urine UA Negative (Negative); PH 5.0 (5.0-9.0); Specific Gravity - Urine 1.015 (1.005-1.025); UMIC TRIGGER UA YES
[2025-06-12 10:30] LABS: Hematocrit 44.3 % (42.0-52.0); Hemoglobin 15.0 g/dl (14.0-18.0); Mean Corpuscular HGB Conc 33.9 g/dl (31.0-36.0); Mean Corpuscular Hemoglobin 31.6 pg (27.0-33.0); Mean Corpuscular Volume 93.3 fL (80.0-98.0); NRBC Abs Auto 0.000 X10*3/uL (0.0-0.012); NRBC Pct Auto 0.0 /100WBC (0.0-0.2); Platelet Count 122 X10*3/uL (160-400); Red Blood Count 4.75 X10*6/uL (4.60-5.80); White Blood Count 5.2 X10*3/uL (4.8-10.8)
[2025-06-12 10:34] LABS: Other Crystals Urine Present
[2025-06-12 10:59] LABS: Total Protein Urine Random 29 mg/dL (<12)
[2025-06-12 11:01] LABS: Anion Gap 13 (12-20); Blood Urea Nitrogen 23 mg/dL (9-16); Calcium 9.0 mg/dL (8.4-10.2); Carbon Dioxide 24 mmol/L (22-29); Chloride 110 mmol/L (96-108); Estimated Glomerular Filt Rate 57; Potassium 4.7 mmol/L (3.3-5.1); Sodium 142 mmol/L (135-145)
== END 2025-06-12 08:44 | disposition home or self-care (01) ==
LOC: HO.HMGCLDS 08:43
PROVIDERS: PCP Internal Medicine; Visit Provider Internal Medicine Hypertension Specialist
DX: N18.9 Chronic kidney disease, unspecified (principal)
CPT/HCPCS: 36415; 80048; 81001; 82570; 84156; 85027

== ENCOUNTER 2025-06-16 10:20 | Outpatient (AMB) | payer MEDICARE, SELFPAY ==
--- OUTSIDE RECORDS SUMMARY | 2025-04-13 09:00 | XMS_ITS ---
Author Organization Jass Mota MD Address [address] [place], [place] [id number] Care Team Providers Care Editor & Co Founder Name Role Phone Jass Mota Primary Care [...] Location Date Provider Diagnosis Jass Mota MD [address] [place] [address] [place] [phone] 04/13/2025 Jass Mota Thrombocytopenia D69 .6 ; [...] Up: 6 Months, Reason: Provider Name:Jass grullon, 07/14/2025 07:15:00 AM, [address] [place] [address], [address], [phone], Provider Name:Jass grullon, 10/13/2025 01:30:00 PM, [address] [place] [address], [address], [phone], Provider Name:Jass grullon, 04/13/2026 07:15:00 AM, [address] [place] [address], [address], [phone], Provider Name:Jass grullon, 04/20/2026 01:00:00 PM, [address] [place] [address], [address], [phone], Progress Notes * RACHAEL HAMILTON JDOB:1950 (74 yo M)Acc No.[id number]:04/13/2025 Patient: RACHAEL MALLOY Provider: Perla Mota MD :1950 A ge:74 Y S ex:Male Date:04/13/2025 Address:[address] [place], [place] [id number] Subjective: * Chief Complaints: * C omp [...] Blood Moderate (2+) A Negative - Specific [place] - Urine 1.015 1.005-1.025 - Urine Protein [...] MD Date: 0 04/13/2025 Generated for Ryan asif/Sumanth/Annitaitting on: 0 06/16/2025 11:39 AM EDT History and Physical Notes * [...]
[2025-06-16 10:25] VITALS: BP 118/82; PULSE 80; O2SAT 97; BMI 25.2
--- NOTE | 2025-06-16 10:25 | HO.NEPHOV ---
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 Required: No Accompanied by: Self / Same As Patient Allergies Penicillins (PENICILLINS) Allergy (Intermediate, Verified 06/16/25 10:26) Rash clindamycin (CLINDAMYCIN) Adverse Reaction (Intermediate, Verified 06/16/25 10:26) DIARRHEA losartan Adverse Reaction (Intermediate, Verified 06/16/25 10:26) hyperkalemia Medication List - Last Reconciled 06/16/25 by Umberto Gutierrez MD allopurinol 100 mg PO DAILY cinacalcet 30 mg PO DAILY colchicine 0.6 mg PO .PRN diltiazem HCl CD 240 mg PO DAILY ferrous sulfate 325 mg PO DAILY metoprolol succinate ER 200 mg PO DAILY tamsulosin 0.4 mg PO DAILY timolol maleate 0.5% 1 drp ophthalmic (eye) QAM HPI Comments Details: Javad is a 74 yr old man with longstanding hypertension and nephrolithiasis with CKD. Overall blood pressure has been well controlled. History of hyperuricemia and tophi. He is currently on allopurinol. Recently had another episode of gout. He was seen in [facility] and had a course of prednisone. 12/25/24 Overall doing well. No further episodes of gout ;Not on Indocin ;Has urinary incontinence for the past week or so 02/12/25 No new issues today. 06/12/25 74-year-old male presenting with gout and hypertension. Gout persists despite treatment. Hypertension is controlled with medications; home readings are stable except for one asymptomatic low reading. Varicose veins have been problematic; a past procedure was performed, but no recent follow-up has occurred. Proteinuria and microscopic hematuria are consistent findings in urine analyses. [facility] Medical History PAF (paroxysmal atrial fibrillation) COVID-19 vaccine series completed Acquired thrombocytopenia Skin lesion Elevated BUN Thyroid nodule Gross hematuria HTN (hypertension) Surgical History Hx of cystoscopy H/O colonoscopy Physical Exam Vital Signs: Last Vital Signs Pulse 80 06/16/25 10:25 BP 118/82 06/16/25 10:25 Pulse Ox 97 06/16/25 10:25 Oxygen Delivery Method Room Air 06/16/25 10:25 BMI result Body Mass Index 25.2 Const General: comfortable; No acute distress Orientation/consciousness: patient oriented x3 Eyes General: appearance normal, both eyes and all related structures Visual Ballesteros: normal visual ballesteros by confrontation Neck Neck: Yes supple and Yes no JVD Resp Effort & Inspection: normal respiratory effort and respiratory effort not decreased Cardio Palpation: no palpable S3 and no palpable S4 Heart sounds: no rubs GI Inspection: Yes normal to inspection Palpation (GI): Soft to palpation Percussion: Yes normal to percussion Auscultation: normal bowel sounds General: Yes no CVA tenderness Back/Spine/Pelvis Back: no CVA tenderness Skin General skin exam: no petechiae and no purpura Neuro General: patient oriented x3 and no focal motor deficits Extrem General: No clubbing and No edema Results Reviewed Nephrology Results: Hgb, (14.0-18.0) 15.0 g/dl 06/12/25 WBC, (4.8-10.8) 5.2 X10*3/uL 06/12/25 Plt Count, (160-400) 122 X10*3/uL L 06/12/25 Sodium, (135-145) 142 mmol/L 06/12/25 Potassium, (3.3-5.1) 4.7 mmol/L 06/12/25 Chloride, (96-108) 110 mmol/L H 06/12/25 Carbon Dioxide, (22-29) 24 mmol/L 06/12/25 BUN, (9-16) 23 mg/dL H 06/12/25 Creatinine, (0.5-1.4) 1.24 mg/dL 06/12/25 Calcium, (8.4-10.2) 9.0 mg/dL 06/12/25 Urine Protein, (Neg-Trace) 30 (1+) mg/dL H 06/12/25 Urine Creatinine 103.58 mg/dL 06/12/25 Renal US 01/28/25 Assessment & Plan Assessment & Plan (1) HTN (hypertension): Code(s): I10 - Essential (primary) hypertension Category: Medical (2) CKD (chronic kidney disease): Code(s): N18.9 - Chronic kidney disease, unspecified Category: Medical (3) Bladder stones: Code(s): N21.0 - Calculus in bladder Category: Medical Plan 74-year-old man with hypertension nephrolithiasis and CKD. Stable CKD 3. Creatinine is at baseline Goal is to slow the progression disease Continue to avoid nephrotoxic agents. Maintain blood pressure less than 130/80. At present blood pressure is well controlled. Encouraged him to stand low-sodium diet. Tophi. Continue the allopurinol Discussed low purine diet. Gave a prescription for colchicine 0.6 mg total of 3 tablets. Asked him to take 1 tablet if he has an episode of gout and call me promptly Mild thrombocytopenia- ? due to allopurinol Renal stone Follows with Orders: Orders Basic Metabolic Panel 6 Months I10 - Essential (primary) hypertension, N18.9 - Chronic kidney disease, unspecified Uric Acid 6 Months I10 - Essential (primary) hypertension, N18.9 - Chronic kidney disease, unspecified Coding Level of Care Code Est Pt Level 4 (26546) Diagnoses HTN (hypertension) I10 CKD (chronic kidney disease) N18.9 Bladder stones N21.0
--- OUTSIDE RECORDS SUMMARY | 2025-06-16 11:40 | XMS_ITS | Clinical Summary ---
Author Organization [facility] Address [address] [place] [address] Phone Care Team Providers Care Press Operator Meat Name Role Phone Jass Mota MD Primary [...] Insurance [facility] [place] [address] [address] Medicare Care Teams Press Operator Meat Relationship Specialty Start Date End Date Jass Mota MD [address] [place] [address] [address] [place], [place] PCP - General 11/08/20
--- OUTSIDE RECORDS SUMMARY | 2025-06-16 11:40 | XMS_ITS | Patient Health Record ---
Author Organization [facility] Address [address] [place] [address] Care Team Providers Care Land Degradation Analyst Name Role Phone Svetlana SHARIF, Jass Primary Care Provider Vikas Quijano [phone] Allergies Allergen (clinical drug ingredient) Drug/Non Drug [...] Problem Status W/U Status Risk Notes Problem 06454147 Blood in stool (K92.1) Active confirmed Problem 796269868 Tubular adenoma of colon (D12.6) Active confirmed Problem Abnormal feces (100459394) Heme + stool (R19.5) Active confirmed Problem 67601990 Rectal bleed (K62.5) Active confirmed Problem 25048386 Pancreatic cyst (K86.2) Active confirmed Problem 20992893 Pancreas cyst (K86.2) Active confirmed Encounters Encounter Location Date Provider Diagnosis [facility] [address] [place] [address] 08/01/2024 Vikas Garcia Plan Of Treatment Pending [...] Date MEDICARE OF [place] [address] [facility] [address] [id number] RACHAEL HAMILTON Self - patient is the insured MED[employer] ATTN CLAIMS [address] [place] [address] [phone] [id number] RACHAEL HAMILTON Self - patient is the insured Medical (General) History Medical History History ICD Code Denies [place],DM,CVA,Lung disease Hypertension Stage 2 kidney disease--sees Dr. [...]
== END 2025-06-16 10:37 | disposition home or self-care (01) ==
LOC: HO.HKA 10:21
PROVIDERS: PCP Internal Medicine; Visit Provider Internal Medicine Hypertension Specialist
DX: I12.9 Hypertensive chronic kidney disease with stage 1 through stage 4 chronic kidney disease, or unspecified chronic kidney disease (principal); N18.9 Chronic kidney disease, unspecified; N21.0 Calculus in bladder
CPT/HCPCS: 99214

== ENCOUNTER → 2025-06-16 10:20 | Outpatient (BNVA) | payer MEDICARE, SELFPAY | PROVIDERS: PCP Internal Medicine; Visit Provider Internal Medicine Hypertension Specialist | DX: I12.9 Hypertensive chronic kidney disease with stage 1 through stage 4 chronic kidney disease, or unspecified chronic kidney disease (principal); N18.9 Chronic kidney disease, unspecified; N21.0 Calculus in bladder | CPT/HCPCS: 99212 ==

== ENCOUNTER 2025-10-14 11:41 | Outpatient (REF) | payer MEDICARE, SELFPAY ==
--- OUTSIDE RECORDS SUMMARY | 2024-06-26 07:07 | XMS_ITS ---
Author Organization Jass Mota MD Address [address] [place] [phone] Care Team Providers Care Elastic Tape Inserter Name Role Phone Jass Mota Primary Care Provider [phone] REASON FOR VISIT Ostomy supply order Encounters Encounter Location Date Provider Diagnosis Jass Mota MD 10 [facility] [address] [place] [phone] 06/26/2024 Jass Mota Plan Of Treatment Next Appt Details Provider Name:Jass grullon, 04/13/2026 07:15:00 AM, [address] [place] [address], Suite [facility], [place], [place], [phone], Provider Name:Jass grullon, 04/20/2026 01:00:00 PM, [address] [place] [address], Suite [facility], [place], [place], [phone], Progress Notes * RACHAEL HAMILTONDOB:1950 (73 yo M)Acc No.[id number]:06/26/2024 Patient: RACHAEL MALLOY :1950 A ge:73 Y S ex:Male Address:[address] [place] [address], [place] [address] * true * Date: Generated for Ryan asif/Sumanth/Darshansmitting on: 12/15/2024 03:36 PM EST
--- OUTSIDE RECORDS SUMMARY | 2024-07-14 09:00 | XMS_ITS ---
Author Organization Jass Mota MD Address [address] [place], [place] [phone] Care Team Providers Care Geologist Name Role Phone Jass Mota Primary Care Provider Allergies Allergen (clinical drug ingredient) Drug/Non Drug Allergy documented on EMR Reaction Allergy Type Onset Date Status losartan Losartan Potassium hyperkalemia Drug Allergy Active Penicillin (uncoded) rash Allergy Active Results Component Value Reference Range Notes Hemoglobin A1c Reviewed date:07/14/2024 02:15:41 PM Interpretation: Performing Lab: Notes/Report: Hemoglobin A1c 5.1 Glucose, finger stick Reviewed date:07/14/2024 02:04:18 PM Interpretation: Performing Lab: Notes/Report: Value 97 REASON FOR VISIT 3 month Medications Medication SIG (Take, Route, Frequency, Duration) Notes Start Date End Date Status Tamsulosin HCl 0.4 MG TAKE 1 CAPSULE BY MOUTH EVERY DAY for 30 Active Loperamide HCl 2 MG 1 capsule as needed Orally Four times a day Not-Taki ng Indomethacin 50 MG 1 capsule with food Orally Three times a day for 14 days 09/12/2013 Not-Taking Benefiber - Orally Not-Taki ng Diltiazem CD 180 MG 1 capsule Orally Onc e a day Not-Taking Metoprolol Succinate ER 200 MG TAKE 1 TABLET BY MOUTH EVERY DAY Active Ferrous Sulfate 325 (65 Fe) MG 1 tablet Orally Once a day Active Allopurinol 100 MG 1 tablet Orally Once a day Active dilTIAZem HCl ER 240 MG 1 capsule on an empty stomach in the morning Orally Once a day Active Acetaminophen 500 MG 2 tablet as needed every 6 hours Active Cinacalcet HCl 30 MG 1 tablet with food or after a meal Orally Once a day for 30 day(s) Active Timolol Maleate 0.5 % 1 drop into affect ed eye Ophthalmic Once a day Active Triamcinolone Acetonide 0.1 % 1 application Externally Two times a Week Active Immunizations Vaccine Route Administration Date Status Comme nts Influenza High Dose IM Intramuscular 07/14/2024 Administer ed Problems Problem Type SNOMED Code ICD Code Onset Dates Problem Status W/U Status Risk Notes Problem 59865018 Kidney stones (N20.0) Active confirmed Problem 50795311 Bladder stones (N21.0) Active confirmed Vital Signs Blood pressure systolic 132 mm Hg 07/14/20 24 Blood pressure diastolic 84 mm Hg 024 Height 75 in 07/14/2024 Weight 206 lbs 07/14/2024 BMI 25.75 kg/m2 07/14/2024 weight is up 8 poiunds since 04-10-24 Encounters Encounter Location Date Provider Diagnosis Jass Mota MD [address] [place] [address] [place] [phone] 07/14/2024 Jass Mota Prediabetes R73.09 ; Colon cancer screening Z12.11 ; Kidney stones N20.0 ; Encounter for immunization Z23 ; Bladder stones N21.0 and Paroxysmal atrial fibrillation I48.0 Assessments Encounter Date Diagnosis (ICD Code) Assessment Notes Treatment Notes Treatment Clinical Notes Section Notes 07/14/2024 Prediabetes (ICD-10 - R73.09) 07/14/2024 Colon cancer screening (ICD-10 - Z12.11) have given him a script at his request for [facility] colon cancer screen 07/14/2024 Kidney stones (ICD-10 - N20.0) knows that he could damage his kidneys without doing anything about it 07/14/2024 Encounter for immunization (ICD-10 - Z23) 07/14/2024 Bladder stones (ICD-10 - N21.0) he understands it could lead to bladder cancer 07/14/2024 Paroxysmal atrial fibrillation (ICD-10 - I48.0) won't take eliquis. Plan Of Treatment Treatment Notes Assessment Notes Colon cancer screening have given him a script at his request for [facility] colon cancer screen Kidney stones knows that he could damage his kidneys without doing anything about it Bladder stones he understands it co uld lead to bladder cancer Paroxysmal atrial fibrillation won't mariela e eliquis. Next Appt Details Follow Up: 6 Months, Reason: Provider Name:Jass grullon, 04/13/2026 07:15:00 AM, [address] [place] [address], [address] [place] [address], [phone], Provider Name:Jass grullon, 04/20/2026 01:00:00 PM, [address] [place] [address], Suite [facility], [place], [place], [phone], Progress Notes * RACHAEL HAMILTONDOB:1950 (73 yo M)Acc No.[id number]:07/14/2024 Progress Notes Patient: RACHAEL MALLOY Provider: Perla Mota MD :1950 A ge:73 Y S ex:Male Date:07/14/2024 Address:[address] [place], [place] [phone] Subjective: * Chief Complaints: * 3 month * HPI: S ymptom(s): patient is a 73 yo male here for 3 month follow up. is not going to get colonoscopy because he has hernias. * ROS: G eneral/Constitutional: Denies C hills. D enies F atigue. D enies F ever. D enies H eadache. E NT: Patient denies d ecreased sense of smell , any loss of taste , sore throat. D enies S ore throat. R espiratory: Denies C ough. Maxime mcdonnell S hortness of breath at rest. D ensiena S hortness of breath with exertion. G astrointestinal: Yunier Swartz iarrhea. Maxime ensiena N ausea. M usculoskeletal: Patient denies m uscle aches. P eripheral Vascular: Patient denies r ed and blue toes. * Medical History: * Surgical History: * Hospitalization/Major Diagno stic Procedure: * Medications: T akingTriamcinolone Acetonide 0.1 % Cream 1 application Externally Two times a WeekTimolol Maleate 0.5 % Solution 1 drop into affected eye Ophthalmic Once a dayCinacalcet HCl 30 MG Tablet 1 tablet with food or after a meal Orally Once a dayAcetaminophen 500 MG Tablet 2 tablet as needed every 6 hoursAllopurinol 100 MG Tablet 1 tablet Orally Once a daydilTIAZem HCl ER 240 MG Capsule Extended Release 24 Hour 1 capsule on an empty stomach in the morning Orally Once a dayMetoprolol Succinate ER 200 MG Tablet Extended Release 24 Hour TAKE 1 TABLET BY MOUTH EVERY DAY Ferrous Sulfate 325 (65 Fe) MG Tablet 1 tablet Orally Once a dayTamsulosin HCl 0.4 MG Capsule TAKE 1 CAPSULE BY MOUTH EVERY DAY Taking Triamcinolone Acetonide 0.1 % Cream 1 application Externally Two times a WeekTaking Timolol Maleate 0.5 % Solution 1 drop into affected eye Ophthalmic Once a dayTaking Cinacalcet HCl 30 MG Tablet 1 tablet with food or after a meal Orally Once a dayTaking Acetaminophen 500 MG Tablet 2 tablet as needed every 6 hoursTaking Allopurinol 100 MG Tablet 1 tablet Orally Once a dayTaking dilTIAZem HCl ER 240 MG Capsule Extended Release 24 Hour 1 capsule on an empty stomach in the morning Orally Once a dayTaking Metoprolol Succinate ER 200 MG Tablet Extended Release 24 Hour TAKE 1 TABLET BY MOUTH EVERY DAY Taking Ferrous Sulfate 325 (65 Fe) MG Tablet 1 tablet Orally Once a dayTaking Tamsulosin HCl 0.4 MG Capsule TAKE 1 CAPSULE BY MOUTH EVERY DAY Not-Taking/PRNLoperamide HCl 2 MG Capsule 1 capsule as needed Orally Four times a dayBenefiber - Powder Orally Diltiazem CD 180 MG Capsule Extended Release 24 Hour 1 capsule Orally Once a dayIndomethacin 50 MG Capsule 1 capsule with food Orally Three times a dayMedication List reviewed and reconciled with the patientNot-Taking/PRN Loperamide HCl 2 MG Capsule 1 capsule as needed Orally Four times a dayNot-Taking/PRN Benefiber - Powder Orally Not- Taking/PRN Diltiazem CD 180 MG Capsule Extended Release 24 Hour 1 capsule Orally Once a dayNot-Taking/PRN Indomethacin 50 MG Capsule 1 capsule with food Orally Three times a dayMedication List reviewed and reconciled with the patient * Allergies: P enicillin: rashLosartan Potassium: hyperkalemiayes[Allergies Verified] Objective: * Vitals: H t: 75, Wt:206, BMI:25.75, BP:132/84 weight is up 8 poiunds since 04-10-24. * Examination: G eneral Examination: GENERAL APPEARANCE: alert, well hydrated, in no distress . HEAD: normocephalic. SKIN: good turgor. HEART: i rregularly irregular rhythm. LUNGS: no wheezes, rales, rhonchi, good air movement, clear to auscultation bilaterally. Assessment: * Assessment: 1. P rediabetes - R73.09 (Primary) 2 . C olon cancer screening - Z12.11 3 . K idney stones - N20.0 4 . E ncounter for immunization - Z23 5 . B ladder stones - N21.0 6 . P aroxysmal atrial fibrillation - I48.0 Plan: * Treatment: Value Reference Range H emoglobin A1c 5.1 * Cydney Soto 4 02:15:40 PM EDT > ?LAB: Glucose, finger stick* Value Reference Range V alue 97 * Cydney Soto 4 02:04:16 PM EDT > 2.?Colon cancer screening? Notes: have given him a script at his request for [facility] colon cancer screen?? 3.?Kidney stones? Notes: knows that he could damage his kidneys without doing anything about it?? 4.?Bladder stones? Notes: he understands it could lead to bladder cancer??5.?Paroxysmal atrial fibrillation? Notes: won't take eliquis.?? * Immunizations: Influenza High Dose : 0.5 mL (Dose No:1) (Route: Intramuscular) given by Cydney Soto on Left Deltoid * Procedure Codes: 8 2947 ASSAY, GLUCOSE, BLOOD QUANT, Modifiers: QW 54835 GLYCATED HEMOGLOBIN TEST, Modifiers: QW 72856 FLU VACC PRSV FREE INC [id number] ADMN FLU VAC NO FEE SCHED SAME DAY * Preventive Medicine: Immunizations: I nfluenza H ave you had a flu shot since the most recent June 29? Y es. * Follow Up: 6 Months * * Sign off status: Completed true * Provider: Perla Mota MD Date: 0 07/14/2024 Generated for Ryan asif/Sumanth/Darshansmitting on: 1 12/15/2024 03:35 PM EST History and Physical Notes * HPI (History of Present Illness) Category Sub-Category Detail Notes Category Not es Symptom(s) patient is a 73 yo male here for 3 month follow up. is not going to get colonoscopy because he has hernias Examination Category Sub-Category Detail Notes Category Not es General Examination GENERAL APPEARANCE: alert, w ell hydrated, in no distress HEAD: normocephalic HEART: irregularly irregula r rhythm LUNGS: no wheezes, rales, r honchi, good air movement, clear to auscultation bilaterally SKIN: good turgor
--- OUTSIDE RECORDS SUMMARY | 2024-08-05 04:30 | XMS_ITS ---
Author Organization Jass Mota MD Address [address] [place] [phone] Care Team Providers Care Network Security Administrator Name Role Phone Jass Mota Primary Care Provider [phone] REASON FOR VISIT FYI cx colonoscopy 08-15-2024 Encounters Encounter Location Date Provider Diagnosis Jass Mota MD [facility] [address] [place] [phone] 08/05/2024 Jass Mota Plan Of Treatment Next Appt Details Provider Name:Jass grullon, 04/13/2026 07:15:00 AM, [address] [place] [address], [address] [place] [address], [phone], Provider Name:Jass grullon, 04/20/2026 01:00:00 PM, [address] [place] [address], [address], [phone], Progress Notes * RACHAEL HAMILTONDOB:1950 (73 yo M)Acc No.[id number]:08/05/2024 Patient: RACHAEL MALLOY :1950 A ge:73 Y S ex:Male Address:[address] [place] [address], [place] [address] * true * Date: Generated for Ryan asif/Sumanth/eTransmitting on: 12/15/2024 03:37 PM EST
--- OUTSIDE RECORDS SUMMARY | 2025-01-12 11:30 | XMS_ITS ---
Author Organization Jass Mota MD Address [address] [place] [phone] Care Team Providers Care Tool Maintenance Worker Name Role Phone Jass Mota Primary Care Provider [phone] Allergies Allergen (clinical drug ingredient) Drug/Non Drug Allergy documented on EMR Reaction Allergy Type Onset Date Status losartan Losartan Potassium hyperkalemia Drug Allergy Active Penicillin (uncoded) rash Allergy Active REASON FOR VISIT 6 MO F/U Encounters Encounter Location Date Provider Diagnosis Jass Mota MD [address] [place] [phone] 01/12/2025 Jass Mota Prediabetes R73.09 Assessments Encounter Date Diagnosis (ICD Code) Assessment Notes Treatment Notes Treatment Clinical Notes Section Notes 01/12/2025 Prediabetes (ICD-10 - R73.09) Plan Of Treatment Pending Test Test Name Order Date Hemoglobin A1c 01/12/2025 Glucose, finger stick 01/12/2025 Next Appt Details Provider Name:Jass Jolley ier, 04/13/2026 07:15:00 AM, [address], [address], [place], [phone], Provider Name:Jass Jolley ier, 04/20/2026 01:00:00 PM, [address], [address], [place], [place], [phone], Progress Notes * RACHAEL HAMILTONDOB:1950 (75 yo M)Acc No.[id number]:01/12/2025 Progress Notes Patient: RACHAEL MALLOY Provider: Perla Mota MD :1950 A ge:74 Y S ex:Male Date:01/12/2025 Address:[address] [place], [place] [phone] Subjective: * Chief Complaints: * 1 . 6 MO F/U. * ROS: G eneral/Constitutional: Denies C hills. D enies F atigue. D enies F ever. D enies H eadache. E NT: Denies S ore throat. R espiratory: Denies C ough. D enies S hortness of breath at rest. D enies S hortness of breath with exertion. G astrointestinal: Denies D iarrhea. D enies N ausea. * Medical History: d iscussed colonoscopy 2011 and 2012 and 2013,2016 refused again in 2017; colonoscopy done 02/14/[address] Garcia - repeat 5 years, Urology w/u for hematuria with cysto and ct 2019, Thyroid nodule biopsied and was neg. * Allergies: P enicillin: rash, Losartan Potassium: hyperkalemia. Objective: * Vitals: Assessment: * Assessment: 1. P rediabetes - R73.09 (Primary) Plan: * Treatment: * Procedure Codes: 8 2947 ASSAY, GLUCOSE, BLOOD QUANT, Modifiers: QW , 65530 GLYCATED HEMOGLOBIN TEST, Modifiers: QW * * The named appointment provid er may or may not be the originator of this progress note, and it is not deemed complete until electronically signed by the appointment provider. Sign off status: Pending * Provider: Perla Mota MD Date: 0 01/12/2025 Generated for Ryan asif/Sumanth/John on: 1 12/15/2024 03:36 PM EST
--- OUTSIDE RECORDS SUMMARY | 2025-04-06 02:45 | XMS_ITS ---
Author Organization Jass Mota MD Address [address] [place] [phone] Care Team Providers Care Rehabilitation Technician Name Role Phone Jass Mota Primary Care Provider REASON FOR VISIT yearly fasting labs Encounters Encounter Location Date Provider Diagnosis Jass Mota MD [address] [place] [phone] 04/06/2025 Jass Mota Prediabetes R73.09 ; Essential hypertension I10 ; Other iron deficiency anemia D50.8 and Stage 2 chronic kidney disease N18.2 Assessments Encounter Date Diagnosis (ICD Code) Assessment Notes Treatment Notes Treatment Clinical Notes Section Notes 04/06/2025 Prediabetes (ICD-10 - R73.09) 04/06/2025 Essential hypertension (ICD-10 - I10) 04/06/2025 Other iron deficiency anemia (ICD-10 - D50.8) 04/06/2025 Stage 2 chronic kidney disease (ICD-10 - N18.2) Plan Of Treatment Pending Test Test Name Order Date Complete Blood Count Auto Diff 5 Comprehensive [place]. Panel Fast IRON PROFILE 04/06/2025 Lipid Panel 04/06/2025 PSA,Total (Free>4and<10) 04/06/2025 Microalbumin, Random 04/06/2025 Hemoglobin A1c 04/06/2025 UA ClnCatch+Micro w/rflx Cult 04/06/2025 Next Appt Details Provider Name:Jass Jolley kimberlyr, 04/13/2026 07:15:00 AM, [address], [address], [place], [place], [phone], Provider Name:Jass Jolley yadi, 04/20/2026 01:00:00 PM, [address], [address], [place], [place], [phone], Progress Notes * MCKAYLisandroRACHAEL FOLEYDOB:1950 (75 yo M)Acc No.[id number]:04/06/2025 Progress Note Patient: RACHAEL MALLOY Provider: Perla Mota MD :1950 A ge:74 Y S ex:Male Date:04/06/2025 Address:[address] [place], [place] [phone] Subjective: * Chief Complaints: * 1 . Yearly fasting labs. * Medical History: Objective: * Vitals: Assessment: * Assessment: 1. P rediabetes - R73.09 (Primary) 2 . E ssential hypertension - I10 ? 3 . O ther iron deficiency anemia - D50.8 4 . S tage 2 chronic kidney disease - N18.2 Plan: * Treatment: 2. E ssential hypertension L AB: Complete Blood Count Auto Diff L AB: Comprehensive [place]. Panel Fast L AB: IRON PROFILE L AB: Lipid Panel L AB: PSA,Total (Free>4and<10) L AB: Microalbumin, Random L AB: Hemoglobin A1c L AB: UA ClnCatch+Micro w/rflx Cult 3. O ther iron deficiency anemia L AB: Complete Blood Count Auto Diff L AB: Comprehensive [place]. Panel Fast L AB: IRON PROFILE L AB: Lipid Panel L AB: PSA,Total (Free>4and<10) L AB: Microalbumin, Random L AB: Hemoglobin A1c L AB: UA ClnCatch+Micro w/rflx Cult 4. S tage 2 chronic kidney disease L AB: Complete Blood Count Auto Diff L AB: Comprehensive [place]. Panel Fast L AB: IRON PROFILE L AB: Lipid Panel L AB: PSA,Total (Free>4and<10) L AB: Microalbumin, Random L AB: Hemoglobin A1c L AB: UA ClnCatch+Micro w/rflx Cult * * The named appointment provid er may or may not be the originator of this progress note, and it is not deemed complete until electronically signed by the appointment provider. Sign off status: Pending * Provider: Perla Mota MD Date: 0 04/06/2025 Generated for Ryan asif/Sumanth/John on: 1 12/15/2024 03:35 PM EST
--- OUTSIDE RECORDS SUMMARY | 2025-04-13 08:00 | XMS_ITS ---
Author Organization Jass Mota MD Address [address] [place], [place] [id number] Care Team Providers Care Engineering Technical Analyst Name Role Phone Jass Mota Primary Care Provider Allergies Allergen (clinical drug ingredient) Drug/Non Drug Allergy documented on EMR Reaction Allergy Type Onset Date Status losartan Losartan Potassium hyperkalemia Drug Allergy Active Penicillin (uncoded) rash Allergy Active REASON FOR VISIT comp visit/ must see platelets Medications Medication SIG (Take, Route, Frequency, Duration) Notes Start Date End Date Status Indomethacin 50 MG 1 capsule with food Orally Three times a day for 14 days 09/12/2013 Not-Taking Diltiazem CD 180 MG 1 capsule Orally Onc e a day Not-Taking Benefiber - Orally Not-Taki ng Loperamide HCl 2 MG 1 capsule as needed Orally Four times a day Not-Taki ng Tamsulosin HCl 0.4 MG TAKE 1 CAPSULE BY MOUTH EVERY DAY for 30 Active Timolol Maleate 0.5 % 1 drop into affect ed eye Ophthalmic Once a day Active Metoprolol Succinate ER 200 MG TAKE 1 TABLET BY MOUTH EVERY DAY Active Triamcinolone Acetonide 0.1 % 1 application Externally Two times a Week Active Acetaminophen 500 MG 2 tablet as needed every 6 hours Not-Taking Cinacalcet HCl 30 MG 1 tablet with food or after a meal Orally Once a day for 30 day(s) Active Ferrous Sulfate 325 (65 Fe) MG 1 tablet Orally Once a day Active dilTIAZem HCl ER 240 MG 1 capsule on an empty stomach in the morning Orally Once a day Active Allopurinol 100 MG 1 tablet Orally Once a day Active Social History Tobacco Use: Social History [...] ast year? No Points 0 Interpretation Negative Vital Signs Blood pressure systolic 112 mm Hg 04/13/20 25 Blood pressure diastolic 80 mm Hg 025 Height 75 in 04/13/2025 Weight 210 lbs 04/13/2025 BMI 26.25 kg/m2 04/13/2025 weight is up 4 pounds since 07-14-24 Encounters Encounter Location Date Provider Diagnosis Jass Mota MD [address] [place] [address] [place] [phone] 04/13/2025 Jass Mota Thrombocytopenia D69 .6 ; Pancreatic mass K86.89 ; Essential hypertension I10 ; Paroxysmal atrial fibrillation I48.0 ; Prediabetes R73.09 ; Other iron deficiency anemia D50.8 ; Tophi gouty M1A.9XX1 and Depression screening Z13.31 Assessments Encounter Date Diagnosis (ICD Code) Assessment Notes Treatment Notes Treatment Clinical Notes Section Notes 04/13/2025 Thrombocytopenia (ICD-10 - D69.6) stable will continue to monitor 04/13/2025 Pancreatic mass (ICD-10 - K86.89) already has mri ordered for next february, will continue to monitor 04/13/2025 Essential hypertension (ICD-10 - I10) stable, will continue current regiment 04/13/2025 Paroxysmal atrial fibrillation (ICD-10 - I48.0) still not on anticoagulants and thinks he would not take any 04/13/2025 Prediabetes (ICD-10 - R73.09) stable, no need for medication at this time 04/13/2025 Other iron deficiency anemia (ICD-10 - D50.8) stable, will continue to monitor 04/13/2025 Tophi gouty (ICD-10 - M1A.9XX1) stable,. will continue current regiment 04/13/2025 Depression screening (ICD-10 - Z13.31) negative screen Plan Of Treatment Medication Medication Name Sig Start Date Stop Date Notes Metoprolol Succinate ER 200 MG TAKE 1 TA BLET BY MOUTH EVERY DAY Ferrous Sulfate 325 (65 Fe) MG 1 tablet Orally Once a day dilTIAZem HCl ER 240 MG 1 capsule on an empty stomach in the morning Orally Once a day Allopurinol 100 MG 1 tablet Orally Once a day Treatment Notes Assessment Notes Thrombocytopenia stable will continue to monitor Pancreatic mass already has mri orde red for next february, will continue to monitor Essential hypertension stable, will cont inue current regiment Paroxysmal atrial fibrillation still not on anticoagulants and thinks he would not take any Prediabetes stable, no need for medication at this time Other iron deficiency anemia stable, iglesia l continue to monitor Tophi gouty stable,. will contin ue current regiment Depression screening negative screen Pending Test Test Name Order Date Complete Blood Count Auto Diff Next Appt Details Follow Up: 6 Months, Reason: Provider Name:Jass grullon, 04/13/2026 07:15:00 AM, [address] [place] [address], [address] [place] [address], [phone], Provider Name:Jass grullon, 04/20/2026 01:00:00 PM, [address] [place] [address], [address], [place], [place], [phone], Progress Notes * RACHAEL HAMILTONDOB:1950 (74 yo M)Acc No.[id number]:04/13/2025 Patient: RACHAEL MALLOY Provider: Perla Mota MD :1950 A ge:74 Y S ex:Male Date:04/13/2025 Address:[address] [place] [address], [place], [id number] Subjective: * Chief Complaints: * C omp visit/ must see platelets * HPI: D epression Screening: PHQ-9 L ittle interest or pleasure in doing things N ot at all, F eeling down, depressed, or hopeless N ot at all, T rouble falling or staying asleep, or sleeping too much N ot at all, F eeling tired or having little energy N ot at all, P oor appetite or overeating N ot at all, F eeling bad about yourself or that you are a failure, or have let yourself or your family down N ot at all, T rouble concentrating on things, such as reading the newspaper or watching television N ot at all, M oving or speaking so slowly that other people could have noticed; or the opposite, being so fidgety or restless that you have been moving around a lot more than usual N ot at all, T houghts that you would be better off or of hurting yourself in some way N ot at all, T otal Score 0 . I nterpretation and Intervention D epression Screening Findings N egative, F ollow-Up for Depression : review of PHQ-9 found negative result, no follow-up needed. C ommunication Needs: Communication Needs D oes the patient have a hearing impairment N o, D oes the patient have a vision impairment? Y es, I f yes, what is the vision impairment? C ontact Lenses, D oes the patient have a cognition impairment? N o. F all Risk: History H ave you had any falls with injury in the past year? N o, H ave you had two or more falls in the past year? N o. S ETHAN Questions: SDOH Questions I n the past year have you been worried about losing housing? N o, I n the past year have you or any family members you live with been unable to get any of the following when it was really needed? Check all that apply: N one. S ymptom(s): patient is a 74 yo male here for review of recent labs and follow up of chronic issues. * ROS: G eneral/Constitutional: Change in appetite d enies. C hills d enies. F ever d enies. O phthalmologic: Blurred vision d enies. D ischarge d enies. P ain d enies. E NT: Decreased hearing d enies. S ore throat d enies.?Swollen glands d enies. E ndocrine: Cold intolerance d enies. E xcessive thirst d enies. H eat intolerance d enies. W eight loss d enies. R espiratory: Cough d enies. S hortness of breath at rest d enies. S hortness of breath with exertion d enies. W heezing d enies. C ardiovascular: Chest pain at rest d enies. C hest pain with exertion?denies. I rregular heartbeat d enies. S hortness of breath d enies. ? G astrointestinal: Abdominal pain d enies. C hange in bowel habits d enies. D iarrhea d enies. N ausea d enies. R ectal bleeding d enies. V omiting d enies . G enitourinary: Blood in urine d enies. D ifficulty urinating d enies. F requent urination d enies. M usculoskeletal: Painful joints d enies. W eakness d enies. ? S kin: Dry skin d enies. I tching d enies. D enies?Mole(s), changes in moles, new moles or any lesions of concern. D enies P hotosensitivity. R jennifer d enies. N eurologic: Dizziness d enies. F ainting d enies. H eadache?denies. * Medical History: * Surgical History: * Hospitalization/Major Diagno stic Procedure: * Family History: F ather: 88 yrs. M other: 89 yrs. 2 brother(s) . 2 daughter(s) . .? 1 sister-Cancer Father- no history of drug abuse or mental illness in the family, Denies mental health/substance abuse family history, Denies mental health/substance abuse family history, No pertinent family medical history, No pertinent family medical history. * Social History: T obacco Use: T obacco Use/Smoking P atient is a n onsmoker, A dditional Findings: Tobacco Non-User C urrent non-smoker, currently using no form of tobacco. D rugs/Alcohol: A lcohol Screen D id you have a drink containing alcohol in the past year? N o, P oints 0 , I nterpretation N egative. M iscellaneous: C affeine: yes, frequency:, 2-3 cups per day. Children: yes. Community involvements: no. Exercise: yes, mows the lawn once a week and walks 30 minutes a day. Home smoke detector use: yes. Housing: owning. Living with: family. Marital status: single. Occupation: Retired. Pets: none. Travel outside of the [place]: no. * Medications: T akingTriamcinolone Acetonide 0.1 % Cream 1 application Externally Two times a Week Timolol Maleate 0.5 % Solution 1 drop into affected eye Ophthalmic Once a day Cinacalcet HCl 30 MG Tablet 1 tablet with food or after a meal Orally Once a day Allopurinol 100 MG Tablet 1 tablet Orally Once a day dilTIAZem HCl ER 240 MG Capsule Extended Release 24 Hour 1 capsule on an empty stomach in the morning Orally Once a day Ferrous Sulfate 325 (65 Fe) MG Tablet 1 tablet Orally Once a day Tamsulosin HCl 0.4 MG Capsule TAKE 1 CAPSULE BY MOUTH EVERY DAY Metoprolol Succinate ER 200 MG Tablet Extended Release 24 Hour TAKE 1 TABLET BY MOUTH EVERY DAY Taking Triamcinolone Acetonide 0.1 % Cream 1 application Externally Two times a Week Taking Timolol Maleate 0.5 % Solution 1 drop into affected eye Ophthalmic Once a day Taking Cinacalcet HCl 30 MG Tablet 1 tablet with food or after a meal Orally Once a day Taking Allopurinol 100 MG Tablet 1 tablet Orally Once a day Taking dilTIAZem HCl ER 240 MG Capsule Extended Release 24 Hour 1 capsule on an empty stomach in the morning Orally Once a day Taking Ferrous Sulfate 325 (65 Fe) MG Tablet 1 tablet Orally Once a day Taking Tamsulosin HCl 0.4 MG Capsule TAKE 1 CAPSULE BY MOUTH EVERY DAY Taking Metoprolol Succinate ER 200 MG Tablet Extended Release 24 Hour TAKE 1 TABLET BY MOUTH EVERY DAY Not-Taking/PRNAcetaminophen 500 MG Tablet 2 tablet as needed every 6 hours Loperamide HCl 2 MG Capsule 1 capsule as needed Orally Four times a day Benefiber - Powder Orally Diltiazem CD 180 MG Capsule Extended Release 24 Hour 1 capsule Orally Once a day Indomethacin 50 MG Capsule 1 capsule with food Orally Three times a day Medication List reviewed and reconciled with the patientNot-Taking/PRN Acetaminophen 500 MG Tablet 2 tablet as needed every 6 hours Not-Taking/PRN Loperamide HCl 2 MG Capsule 1 capsule as needed Orally Four times a day Not-Taking/PRN Benefiber - Powder Orally Not-Taking/PRN Diltiazem CD 180 MG Capsule Extended Release 24 Hour 1 capsule Orally Once a day Not-Taking/PRN Indomethacin 50 MG Capsule 1 capsule with food Orally Three times a day Medication List reviewed and reconciled with the patient * Allergies: P enicillin: rashLosartan Potassium: hyperkalemiayes[Allergies Verified] Objective: * Vitals: H t: 75, Wt: 210, BMI:26.25, BP:112/80, Wt-k.26. weight is up 4 pounds since 07-14-24. * P ast Orders: L ab:Microalbumin, Random (Order Date - 04/03/2025) (Collection Date & Time - 04/03/2025 09:25 AM) Value Reference Range Creatinine Urine 121.14 - mg/dL Microalbumin Urine 173.0 - mg/L Microalbum Creatinine Ratio Ur 142.8 H <30 - ug/ mg cr L ab:Hemoglobin A1c (Order Date - 04/03/2025) (Collection Date & Time - 04/03/2025 09:16 AM) Value Reference Range Hemoglobin A1c % 5.3 <6.0 - % Estimated Average Glucose 105 - mg/dL L ab:UA ClnCatch+Micro w/rflx Cult (Order Date - 04/03/2025) (Collection Date & Time - 04/03/2025 09:25 AM) Value Reference Range Color Urine Yellow - Appearance Urine Clear - PH 5.5 5.0-9.0 - Glucose Urine UA Negative Negative - mg/dL Urine Blood Moderate (2+) A Negative - Specific [place] - Urine 1.015 1.005-1.025 - Urine Protein 30 (1+) A Neg-Trace - mg/dL Urine Ketones Negative Negative - mg/dL Nitrite Urine Negative Negative - Leukocyte Esterase Urine Trace A Negative - RBC Urine 11-20 A 0-2 - /HPF WBC Urine 0-5 0-5 - /HPF Squamous Epithelial Cell Urine 3-5 0-2 - /HP F Bacteria Urine None Seen None Seen - Hyaline Casts Urine 3-5 0-2 - /LPF L ab:IRON PROFILE (Order Date - 04/03/2025) (Collection Date & Time - 04/03/2025 09:16 AM) Value Reference Range Iron 97 45-160 - mcg/dL Total Iron Binding Capacity 221 L 228-428 - mc g/dL Percent Iron Saturation 44 15-50 - % Unsaturated Iron Binding 124 - ug/dL L ab:Lipid Panel (Order Date - 04/03/2025) (Collection Date & Time - 04/03/2025 09:16 AM) Value Reference Range Triglycerides 70 <150 - mg/dL Cholesterol 137 <200 - mg/dL LDL Cholesterol Calculated 72 <100 - mg/dL HDL Cholesterol 51 >40 - mg/dL L ab:PSA,Total (Free>4and<10) (Order Date - 04/03/2025) (Collection Date & Time - 04/03/2025 09:16 AM) Value Reference Range PSA,Total (Free>4and<10) 3.50 0.00-4.00 - ng/ mL * Examination: G eneral Examination: GENERAL APPEARANCE: w ell developed, well nourished, in no acute distress. HEAD: n ormocephalic, atraumatic. EYES: p upils equal, round, reactive to light and accommodation, sclera non-icteric. EARS: n ormal. ORAL CAVITY: m ucosa moist. THROAT: c lear. NECK/THYROID: n becky supple, full range of motion, no cervical lymphadenopathy, no bruits. SKIN: w arm and dry, no suspicious lesions. HEART: r egular rate and rhythm, S1, S2 normal, no murmurs.? LUNGS: c lear to auscultation bilaterally. ABDOMEN: s oft, nontender, nondistended, bowel sounds present, normal, no organomegaly , no masses palpable. RECTAL EXAM: d eclined. MALE GENITOURINARY: a bnormal with left inguinal hernia.? EXTREMITIES: n o clubbing, cyanosis, or edema. NEUROLOGIC: n onfocal, motor strength normal upper and lower extremities, sensory exam intact. Assessment: * Assessment: 1. T hrombocytopenia - D69.6 (Primary) 2 . P ancreatic mass - K86.89 ? 3 . E ssential hypertension - I10 4 . P aroxysmal atrial fibrillation - I48.0 5 . P rediabetes - R73.09 6 . O ther iron deficiency anemia - D50.8 7 . T ophi gouty - M1A.9XX1 8 . D epression screening - Z13.31 Plan: * Treatment: 2. P ancreatic mass Notes: already has mri ordered for next february, will continue to monitor 3. E ssential hypertension Continue dilTIAZem HCl ER Capsule Extended Release 24 Hour, 240 MG, 1 capsule on an empty stomach in the morning, Orally, Once a day; C ontinue Metoprolol Succinate ER Tablet Extended Release 24 Hour, 200 MG, TAKE 1 TABLET BY MOUTH EVERY DAY. Notes: stable, will continue current regiment 4. P aroxysmal atrial fibrillation Notes: still not on anticoagulants and thinks he would not take any 5. P rediabetes Notes: stable, no need for medication at this time 6. O ther iron deficiency anemia Continue Ferrous Sulfate Tablet, 325 (65 Fe) MG, 1 tablet, Orally, Once a day. Notes: stable, will continue to monitor 7. T ophi gouty Continue Allopurinol Tablet, 100 MG, 1 tablet, Orally, Once a day. Notes: stable,. will continue current regiment 8. D epression screening Notes: negative screen * Procedure Codes: G 2211 Complex e/m visit add on * Follow Up: 6 Months * * Sign off status: Completed true * Provider: Perla Mota MD Date: 0 04/13/2025 Generated for Ryan asif/Sumanth/John on: 1 12/15/2024 03:35 PM EST History and Physical Notes * HPI (History of Present Illness) Category Sub-Category Detail Notes Category Not es Symptom(s) patient is a 74 yo male here for review of recent labs and follow up of chronic issues Depression Screening PHQ-9 Little inte rest or pleasure in doing things: Not at all Feeling down, depressed, or hopeless: No t at all Trouble falling or staying asleep, or sl eeping too much: Not at all Feeling tired or having little energy: N ot at all Poor appetite or overeating: Not at all Feeling bad about yourself o r that you are a failure, or have let yourself or your family down: Not at all Trouble concentrating on thi ngs, such as reading the newspaper or watching television: Not at all Moving or speaking so slowly that other people could have noticed; or the opposite, being so fidgety or restless that you have been moving around a lot more than usual: Not at all Thoughts that you would be b kj off or of hurting yourself in some way: Not at all Total Score: 0 Interpretation and Intervention Depression Laure choe Findings: Negative Follow-Up for Depression: : review of PH Q-9 found negative result, no follow-up needed SDOH Questions SDOH Questions In the past year have you been worried about losing housing?: No In the past year have you or any family members you live with been unable to get any of the following when it was really needed? Check all that apply:: None Fall Risk History Have you had any falls with injury i n the past year?: No Have you had two or more falls in the st year?: No Communication Needs Communication Needs Does the patient have a hearing impairment: No Does the patient have a vision impairmen t?: Yes If yes, what is the vision impairment?: Contact Lenses Does the patient have a cognition impair ment?: No Examination Category Sub-Category Detail Notes Category Not es General Examination GENERAL APPEARANCE: well dev eloped, well nourished, in no acute distress HEAD: normocephalic, atrau matic EYES: pupils equal, round, reactive to light and accommodation, sclera non-icteric EARS: normal THROAT: clear NECK/THYROID: neck supple, full ra nge of motion, no cervical lymphadenopathy, no bruits HEART: regular rate and rhy thm, S1, S2 normal, no murmurs LUNGS: clear to auscultatio n bilaterally ABDOMEN: soft, nontender, non distended, bowel sounds present, normal, no organomegaly , no masses palpable NEUROLOGIC: nonfocal, motor stre ngth normal upper and lower extremities, sensory exam intact SKIN: warm and dry, no jeff picious lesions EXTREMITIES: no clubbing, cyanosi s, or edema MALE GENITOURINARY: abnormal with left i nguinal hernia RECTAL EXAM: declined ORAL CAVITY: mucosa moist
--- OUTSIDE RECORDS SUMMARY | 2025-07-14 04:15 | XMS_ITS ---
Author Organization Jass Mota MD Address [address] [place] [phone] Care Team Providers Care Beader Name Role Phone Jass Mota Primary Care Provider REASON FOR VISIT repeat CBC Encounters Encounter Location Date Provider Diagnosis Jass Mota MD [address] [place] [phone] 07/14/2025 Jass Mota Thrombocytopenia D69 .6 Assessments Encounter Date Diagnosis (ICD Code) Assessment Notes Treatment Notes Treatment Clinical Notes Section Notes 07/14/2025 Thrombocytopenia (ICD-10 - D69.6) Plan Of Treatment Pending Test Test Name Order Date Complete Blood Count Auto Diff Next Appt Details Provider Name:Jass grullon, 04/13/2026 07:15:00 AM, [address] [facility], [address] [facility], [place], [place], [phone], Provider Name:Jass Jolley yadi, 04/20/2026 01:00:00 PM, [address], [address], [place], [place], [phone], Progress Notes * RACHAEL HAMILTONDOB:1950 (75 yo M)Acc No.[id number]:07/14/2025 Progress Note Patient: RACHAEL MALLOY Provider: Perla Mota MD :1950 A ge:74 Y S ex:Male Date:07/14/2025 Address:[address] [place], [place] [phone] Subjective: * Chief Complaints: * 1 . repeat CBC. * Medical History: Objective: * Vitals: Assessment: * Assessment: 1. T hrombocytopenia - D69.6 Plan: * Treatment: * * The named appointment provid er may or may not be the originator of this progress note, and it is not deemed complete until electronically signed by the appointment provider. Sign off status: Pending * Provider: Perla Mota MD Date: 0 07/14/2025 Generated for Ryan asif/Sumanth/John on: 12/15/2024 03:36 PM EST
--- OUTSIDE RECORDS SUMMARY | 2025-10-13 08:30 | XMS_ITS ---
Author Organization Jass Mota MD Address [address] [place], [place] [id number] Care Team Providers Care Lubrication Technician Name Role Phone Jass Mota Primary Care Provider Allergies Allergen (clinical drug ingredient) Drug/Non Drug Allergy documented on EMR Reaction Allergy Type Onset Date Status losartan Losartan Potassium hyperkalemia Drug Allergy Active Penicillin (uncoded) rash Allergy Active Results Component Value Reference Range Notes Uric Acid (Not yet reviewed by provider) Interpretation: Performing Lab:[facility], [address] [place] [id number] Notes/Report: Uric Acid 7.3 3.4-7.0 mg/dL Hemoglobin A1c Reviewed date:10/13/2025 01:39:22 PM Interpretation: Performing Lab: Notes/Report: Hemoglobin A1c 5.2 Glucose, finger stick Reviewed date:10/13/2025 01:30:49 PM Interpretation: Performing Lab: Notes/Report: Value 89 REASON FOR VISIT 6 months Medications Medication SIG (Take, Route, Frequency, Duration) Notes Start Date End Date Status Loperamide HCl 2 MG 1 capsule as needed Orally Four times a day Not-Taki ng Acetaminophen 500 MG 2 tablet as needed every 6 hours Not-Taking Indomethacin 50 MG 1 capsule with food Orally Three times a day for 14 days 09/12/2013 Not-Taking Diltiazem CD 180 MG 1 capsule Orally Onc e a day Not-Taking Benefiber - Orally Not-Taki ng Tamsulosin HCl 0.4 MG TAKE 1 CAPSULE BY MOUTH EVERY DAY for 30 Active Allopurinol 100 MG 1 tablet Orally Once a day Active Ferrous Sulfate 325 (65 Fe) MG 1 tablet Orally Once a day Active Metoprolol Succinate ER 200 MG TAKE 1 TABLET BY MOUTH EVERY DAY Orally Once a day Active dilTIAZem HCl [...] application Externally Two times a Week Active Vital Signs Blood pressure systolic 122 mm Hg 10/13/20 25 Blood pressure diastolic 70 mm Hg 025 Height 75 in 10/13/2025 Weight 214 lbs 10/13/2025 BMI 26.75 kg/m2 10/13/2025 weight is up 4 pounds since 04-13-25 Encounters Encounter Location Date Provider Diagnosis Jass Mota MD [address] [facility] [address] [place] [phone] 10/13/2025 Jass Mota Paroxysmal atrial fibrillation I48.0 ; Essential hypertension I10 ; Tophi gouty M1A.9XX1 and Prediabetes R73.09 Assessments Encounter Date Diagnosis (ICD Code) Assessment Notes Treatment Notes Treatment Clinical Notes Section Notes 10/13/2025 Paroxysmal atrial fibrillation (ICD-10 - I48.0) need notes from dr sherley vicente at [facility] cardiology/ not taking anticoagulant and is rolling the dice./ will send for records 10/13/2025 Essential hypertension (ICD-10 - I10) stable, will continue current medication 10/13/2025 Tophi gouty (ICD-10 - M1A.9XX1) Order faxed to [facility] lab Patient notified 10/13/2025 Prediabetes (ICD-10 - R73.09) stable, no need for medication at this time Plan Of Treatment Medication Medication Name Sig Start Date Stop Date Notes Metoprolol Succinate ER 200 MG TAKE 1 TA BLET BY MOUTH EVERY DAY Orally Once a day dilTIAZem HCl ER 240 MG 1 capsule on an empty stomach in the morning Orally Once a day Treatment Notes Assessment Notes Paroxysmal atrial fibrillation need note s from dr sherley vicente at [facility] cardiology/ not taking anticoagulant and is rolling the dice./ will send for records Essential hypertension stable, will cont inue current medication Tophi gouty Order faxed to [facility] lab Patient notified Prediabetes stable, no need for medication at this time Pending Test Test Name Order Date Uric Acid 10/13/2025 Next Appt Details Provider Name:Jass grullon, 04/13/2026 07:15:00 AM, [address] [place] [address], [address], [phone], Provider Name:Jass harrisr, 04/20/2026 01:00:00 PM, [address] [place] [address], [place] [address], [place], [place], [phone], Progress Notes * RACHAEL HAMILTON JonathanDOB:1950 (75 yo M)Acc No.[id number]:10/13/2025 Progress Notes Patient: RACHAEL MALLOY Provider: Perla Mota MD :1950 A ge:74 Y S ex:Male Date:10/13/2025 Address:[address] [place], [place] [phone] Subjective: * Chief Complaints: * 1 . 6 months. * HPI: S ymptom(s): patient is a 74 yo male here for 6 month follow up visit/ complaining of his tophi getting harder and not resolving. * ROS: G eneral/Constitutional: Denies C hills. D enies F atigue. D enies F ever. D enies H eadache. E NT: Denies S ore throat. E ndocrine: Denies D ifficulty sleeping. D enies D izziness.?Denies E xcessive sweating. D enies E xcessive thirst. A dmits F requent urination. R espiratory: Denies C ough. D enies S hortness of breath at rest. D enies S hortness of breath with exertion. G astrointestinal: Denies D iarrhea. D enies N ausea. * Medical History: d iscussed colonoscopy 2011 and 2012 and 2013,2015 refused again in 2017; colonoscopy done 02/14/[address] Garcia - repeat 5 years, Urology w/u for hematuria with cysto and ct 2019, Thyroid nodule biopsied and was neg. * Medications: T aking Triamcinolone Acetonide 0.1 % Cream 1 application Externally Two times a Week , Taking Timolol Maleate 0.5 % Solution 1 drop into affected eye Ophthalmic Once a day , Taking Cinacalcet HCl 30 MG Tablet 1 tablet with food or after a meal Orally Once a day , Taking Allopurinol 100 MG Tablet 1 tablet Orally Once a day , Taking dilTIAZem HCl ER 240 MG Capsule Extended Release 24 Hour 1 capsule on an empty stomach in the morning Orally Once a day , Taking Ferrous Sulfate 325 (65 Fe) MG Tablet 1 tablet Orally Once a day , Taking Tamsulosin HCl 0.4 MG Capsule TAKE 1 CAPSULE BY MOUTH EVERY DAY , Taking Metoprolol Succinate ER 200 MG Tablet Extended Release 24 Hour TAKE 1 TABLET BY MOUTH EVERY DAY Orally Once a day , Not-Taking/PRN Acetaminophen 500 MG Tablet 2 tablet as needed every 6 hours , Not-Taking/PRN Loperamide HCl 2 MG Capsule 1 capsule as needed Orally Four times a day , Not-Taking/PRN Benefiber - Powder Orally , Not-Taking/PRN Diltiazem CD 180 MG Capsule Extended Release 24 Hour 1 capsule Orally Once a day , Not-Taking/PRN Indomethacin 50 MG Capsule 1 capsule with food Orally Three times a day , Medication List reviewed and reconciled with the patient * Allergies: P enicillin: rash, Losartan Potassium: hyperkalemia. Objective: * Vitals: H t: 75, Wt: 214, BMI:26.75, BP:122/70, Wt-k.07. weight is up 4 pounds since 04-13-25. * Examination: G eneral Examination: GENERAL APPEARANCE: a lert, well hydrated, in no distress.? HEAD: n ormocephalic. SKIN: g ood turgor. HEART: r egular rate and rhythm, no murmurs, rubs, gallops.? LUNGS: n o wheezes, rales, rhonchi, good air movement, clear to auscultation bilaterally. Assessment: * Assessment: 1. P aroxysmal atrial fibrillation - I48.0 (Primary) 2 . E ssential hypertension - I10 3 . T ophi gouty - M1A.9XX1 4 . P rediabetes - R73.09 Plan: * Treatment: 2. E ssential hypertension Continue dilTIAZem HCl ER Capsule Extended Release 24 Hour, 240 MG, 1 capsule on an empty stomach in the morning, Orally, Once a day; C ontinue Metoprolol Succinate ER Tablet Extended Release 24 Hour, 200 MG, TAKE 1 TABLET BY MOUTH EVERY DAY, Orally, Once a day. Notes: stable, will continue current medication 3. T ophi gouty L AB: Uric Acid (Collection Date & Time - 2025 11:46 AM) Notes: Order faxed to [facility] lab Patient notified 4. P rediabetes L AB: Hemoglobin A1c (Collection Date & Time - 10/13/2025) Value Reference Range H emoglobin A1c 5.2 ?LAB: Glucose, finger stick (Collection Date & Time - 10/13/2025)* Value Reference Range V alue 89 Notes: stable, no need for medication at this time?? * Procedure Codes: 8 2947 ASSAY, GLUCOSE, BLOOD QUANT, Modifiers: QW , 83960 GLYCATED HEMOGLOBIN TEST, Modifiers: QW , G2211 Complex e/m visit add on * * The named appointment provid er may or may not be the originator of this progress note, and it is not deemed complete until electronically signed by the appointment provider. Sign off status: Pending * Provider: Perla Mota MD Date: 1 12/14/2024 Generated for Ryan asif/Sumanth/John on: 12/15/2024 03:36 PM EST History and Physical Notes * HPI (History of Present Illness) Category Sub-Category Detail Notes Category Not es Symptom(s) patient is a 74 yo male here for 6 month follow up visit/ complaining of his tophi getting harder and not resolving Examination Category Sub-Category Detail Notes Category Not es General Examination GENERAL APPEARANCE: alert, w ell hydrated, in no distress HEAD: normocephalic HEART: regular rate and rhy thm, no murmurs, rubs, gallops LUNGS: no wheezes, rales, r honchi, good air movement, clear to auscultation bilaterally SKIN: good turgor
[2025-10-14 15:32] LABS: Uric Acid 7.3 mg/dL (3.4-7.0)
--- OUTSIDE RECORDS SUMMARY | 2025-10-14 15:37 | XMS_ITS | Patient Health Record ---
Author Organization [facility] Address [address] [place] [address] Care Team Providers Care Manufacturing Engineering Director Name Role Phone Svetlana SHARIF, Jass Primary Care Provider Vikas Quijano [phone] Allergies Allergen (clinical drug ingredient) Drug/Non Drug Allergy documented on EMR Reaction Allergy Type Onset Date Status Penicillin Unknown Drug Allergy Active Reason For Referral No Information Medications Medication SIG (Take, Route, Frequency, Duration) Notes Start Date End Date Status Timolol Maleate 0.5 % (DAILY) Solution 1 drop into affected eye Ophthalmic Once a day Active hydroCHLOROthiazide 12.5 MG Capsule 1 capsule in the morning Orally Once a day; Duration: 30 day(s) Active Tylenol Extra Strength 500 MG Tablet 2tablet as needed Orally every 6 hrs PRN Active Triamcinolone Acetonide 0.1 % Cream 1 application Externally Two times a Week Active Allopurinol 100 MG Tablet 1 tablet Orall y Once a day; Duration: 30 day(s) Active amLODIPine Besy-Benazepril HCl 10-40 MG Capsule Orally Not-Ephraim ing/P RN Acetaminophen 500 MG Capsule 1 capsule as needed Orally every 6 hrs as needed Active Eliquis 5 MG Tablet 1 tablet Orally bid Not-Taking/P RN Metoprolol Succinate ER 200 MG Tablet Extended Release 24 Hour 1 tablet Orally Once a day Active Cinacalcet HCl 90 MG Tablet 1 tablet with food or after a meal Orally Once a day; Duration: 30 day(s) Active Tamsulosin HCl 0.4 MG Capsule TAKE 1 TABLET BY MOUTH AT BEDTIME Oral; Duration: 30 Active dilTIAZem HCl ER Coated Beads 240 MG Capsule Extended Release 24 Hour TAKE 1 CAPSULE BY MOUTH EVERY DAY Oral; Duration: 30 Active Ferrous Sulfate Dried 200 (65 Fe) MG Tablet as directed Orally 03/31/2020 Active Immunizations Vaccine Route Administration Date Status Comme nts Influenza Unknown 07/29/2019 Administered Influenza Unknown 06/29/2020 Administered Influenza Unknown 08/21/2023 Administered Social History Tobacco Use: Social History Observation Description Date Details (start date - stop date) Never Smoker NA - NA Social History Drugs/Alcohol: Social Info Question Answer Notes Alcohol Screen Did you have a drink containing alcohol in the past year? 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: Nonsmoker; no sig alcohol Nonsmoker; no sig alcohol Nonsmoker; no sig alcohol Nonsmoker; no sig alcohol Nonsmoker; no sig alcohol Problems Problem Type SNOMED Code ICD Code Onset Dates Problem Status W/U Status Risk Notes Problem Blood in stool (430350618) Blood in stool (K92.1) Active confirmed Problem Tubular adenoma of colon (534119546) Tubular adenoma of colon (D12.6) Active confirmed Problem Abnormal feces (407762492) Heme + stool (R19.5) Active confirmed Problem Hemorrhage of rectum and anus (500851412) Rectal bleed (K62.5) Active confirmed Problem Pancreatic cyst (04521942) Pancreatic cyst (K86.2) Active confirmed Problem Cyst and pseudocyst of pancreas (685562376) Pancreas cyst (K86.2) Active confirmed Plan Of Treatment Pending Test Test Name Order Date BUN 07/02/2020 BUN 04/05/2021 CREATININE 04/05/2021 CREATININE 07/02/2020 CA 19-9 03/31/2020 MRI ABD W&WO CONTRAST 04/05/2021 MRI ABD W&WO CONTRAST 07/02/2020 Future Test Test Name Order Date COLONOSCOPY 02/06/2018 COLONOSCOPY 04/23/2024 Insurance Providers Payer Name Payer Address Payer Phone Subscriber Number Group Number Insured Name Patient Relationship to Insured Coverage Start Date Coverage End Date MEDICARE OF [place] [address] [place] [address] [id number] RACHAEL HAMILTON Self - patient is the insured MED[employer] ATTN CLAIMS [address] [place] [address] [id number] RACHAEL HAMILTON Self - patient is the insured Medical (General) History Medical History History ICD Code Denies [place],DM,CVA,Lung disease Hypertension Stage 2 kidney disease--sees Dr. [...]
--- OUTSIDE RECORDS SUMMARY | 2025-10-14 15:38 | XMS_ITS | Patient Health Record ---
Author Organization Jass Mota MD Address [address] [place], [place] [id number] Care Team Providers Care Silver Cleaner Name Role Phone Jass Mota Primary Care Provider Allergies Allergen (clinical drug ingredient) Drug/Non Drug Allergy documented on EMR Reaction Allergy Type Onset Date Status losartan Losartan Potassium hyperkalemia Drug Allergy Active Penicillin (uncoded) rash Allergy Active Results Component Value Reference Range Notes Hemoglobin A1c Reviewed date:10/13/2025 01:39:22 PM Interpretation: Performing Lab: Notes/Report: Hemoglobin A1c 5.2 Uric Acid (Not yet reviewed by provider) Interpretation: Performing Lab:[facility], [address] [place] [phone] Notes/Report: Uric Acid 7.3 3.4-7.0 mg/dL Glucose, finger stick Reviewed date:10/13/2025 01:30:49 PM Interpretation: Performing Lab: Notes/Report: Value 89 Basic Metabolic Panel Reviewed date:12/18/2024 12:48:38 PM Interpretation: Performing Lab:[facility], [address] [place] [phone] Notes/Report: Sodium 143 135-145 mmol/L Potassium 3.7 [...] Acid Reviewed date:12/18/2024 08:53:18 AM Interpretation: Performing Lab:[facility], [address] [place] [phone] Notes/Report: Uric Acid 7.4 3.4-7.0 mg/dL US renal BI Reviewed date:01/29/2025 10:58:34 AM Interpretation: Performing Lab: Notes/Report: [facility] [place] [address] Ultrasound Report Signed Patient: Rachael [place] MR#: [id number] : 1950 Acct:[id number] Age/Sex: 74 / M ADM Date: 01/28/25 Loc: HO.HMGCX Attending Dr: Umberto Gutierrez MD Ordering Physician: Umberto Gutierrez MD Date of Service: 01/28/25 Procedure(s): US renal BI Accession Number(s): [id number] cc: Umberto Gutierrez MD; Jass Mota MD EXAMINATION: US KIDNEY [...] Vikas Wilburn MD 01/28/2025 02:48 PM EDT Dictated By: Vikas Wilburn MD Signed By: <Electronically signed by Vikas Wilburn MD in OV> 01/28/25 1448 DD/ 1418 TD/TT: 01/28/25 1441 Racking Machine Operator: [facility] [address] [place] [address] [place] [address] Ultrasound Report Signed Patient: Rachael [place] MR#: [id number] : 1950 Acct:[id number] Age/Sex: 74 / M ADM Date: 01/28/25 Loc: HO.HMGCX Attending Dr: Umberto Gutierrez MD Ordering Physician: Umberto Gutierrez MD Date of Service: 01/28/25 Procedure(s): US kalina Velasquez Accession Number(s): [id number] cc: Umberto Gutierrez MD; Jass Mota MD EXAMINATION: US KIDN EY BILATERAL HISTORY: I10 - Essential (primary) [...] Vikas Wilburn MD 01/28/2025 02:48 PM EDT Dictated By: Vikas Wilburn MD Signed By: <Electronically signed by Vikas Wilburn MD in OV> 01/28/25 1448 DD/ 1418 TD/TT: 01/28/25 1441 Racking Machine Operator: Basic Metabolic Panel Reviewed date:02/05/2025 06:28:15 PM Interpretation: Performing Lab:[facility], [address] [place] [phone] Notes/Report: Sodium 137 135-145 mmol/L Potassium 4.1 [...] Culture Reviewed date:02/05/2025 06:27:53 PM Interpretation: Performing Lab:[facility], [address] [place] [phone] Notes/Report: Urine Culture No growth. Complete Blood Count Auto Di ff Reviewed date:04/13/2025 04:32:03 PM Interpretation:04-13-2025 Performing Lab:[facility], [address] [place] [phone] Notes/Report: White Blood Count 6.4 4.8-10.8 X10*3/uL Red Blood Count 4.89 4.60-5.80 X10*6/uL Hemoglobin 15.4 14.0-18.0 g/dl Hematocrit 45.6 42.0-52.0 % Mean Corpuscular Volume 93.3 80.0-98.0 fL Mean Corpuscular Hemoglobin 31.5 27.0-33.0 pg Mean Corpuscular HGB Conc 33.8 31.0-36.0 g/dl Red Cell Distribution Width 14.6 11.0-16.0 % Platelet Count 124 160-400 X10*3/uL Mean Platelet Volume 11.3 9.4-12.4 fL Neutrophils Percent Auto 63.8 45-73 % Imm Gran Pct Auto 3.1 0.0-0.4 % Lymphocytes Percent Auto 15.9 20-40 % Monocytes Percent Auto 10.5 2-11 % Eosinophils Percent Auto 4.8 0-4 % Basophils Percent Auto 1.9 0-2 % NRBC Pct Auto 0.0 0.0-0.2 /100WBC Neutrophils Absolute Auto 4.1 2.0-8.3 x10*3/uL Imm Gran Abs Auto 0.20 0.00-0.03 X10*3/uL Lymphocytes Absolute Auto 1.0 1.2-4.9 X10*3/uL Monocytes Absolute Auto 0.7 0.1-1.2 X10*3/uL Eosinophils Absolute Auto 0.3 0.0-0.4 X10*3/uL Basophils Absolute Auto 0.1 0.0-0.2 X10*3/uL NRBC Abs Auto 0.000 0.0-0.012 X10*3/uL Comprehensive [place]. Panel Fa st Reviewed date:04/13/2025 04:31:30 PM Interpretation:04-13-2025 Performing Lab:[facility], [address] [place] [phone] Notes/Report: Sodium 142 135-145 mmol/L Potassium 4.6 3.3-5.1 mmol/L Chloride 110 96-108 mmol/L Carbon Dioxide 25 22-29 mmol/L Anion Gap 12 12-20 Blood Urea Nitrogen 25 9-16 mg/dL Creatinine 1.46 0.5-1.4 mg/dL Estimated Glomerular Filt Rate 47 Chronic Kidney Disease: Estimated GFR < 60 mL/min/1.73m2 Severe Kidney Disease: Estimated GFR < 15 mL/min/1.73m2 Glucose Fasting 99 60-99 mg/dL Calcium 9.2 8.4-10.2 mg/dL Bilirubin Total 1.3 0.0-1.0 mg/dL Aspartate Amino Transferase 33 5-37 U/L Alanine Aminotransferase 34 0-40 U/L Total Protein 6.7 6.5-8.0 g/dL Albumin Level 4.6 3.5-5.0 g/dL Alkaline Phosphatase 67 39-117 U/L IRON PROFILE Reviewed date:04/03/2025 06:47:10 PM Interpretation: Performing Lab:[facility], [address] [place] [phone] Notes/Report: Iron 97 45-160 mcg/dL Total Iron Binding Capacity 221 228-428 mcg/dL Percent Iron Saturation 44 15-50 % Unsaturated Iron Binding 124 Lipid Panel Reviewed date:04/03/2025 06:51:25 PM Interpretation: Performing Lab:[facility], [address] [place] [phone] Notes/Report: Triglycerides 70 <150 mg/dL Desirable Triglyceride: less than 150 mg/dL Borderline High Triglyceride 150-199 mg/dL High Triglyceride: 200-499 mg/dL Very High Triglyceride: greater than or equal to 5OO mg/dL Cholesterol 137 <200 mg/dL Desirable Cholesterol: less than 200 mg/dL Borderline High Cholesterol: 200-239 mg/dL High Cholesterol: greater than 239 mg/dL LDL Cholesterol Calculated 72 <100 mg/dL Desirable LDL: less than 100 mg/dL Near Optimal/Above Optimal LDL: 110-129 mg/dL Borderline High LDL: 130-159 mg/dL High LDL: 160-189 mg/dL Very High LDL: greater than or equal to 190 mg/dL HDL Cholesterol 51 >40 mg/dL Desirable HDL: greater than 40 mg/dL Note: This HDL assay may give artificially low results in patients with liver disease. PSA,Total (Free>4and<10) Reviewed date:04/03/2025 06:47:18 PM Interpretation: Performing Lab:[address] [phone] Notes/Report: PSA,Total (Free>4and<10) 3.50 0.00-4.00 ng/mL A Free PSA was not performed: The percentage of Free PSA can be used to enhance the differentiation of prostate cancer from benign prostatic disease in subjects whose PSA levels are between 4.0 and 10.0 ng/mL. For subjects whose PSA levels are below 4.0 or above 10.0 ng/mL, the risk of prostate cancer is determined on the basis of the PSA alone. Therefore the % Free PSA is recommended only for those subjects whose PSA levels are between 4.0 and 10.0 ng/mL. PSA methodology: Campa Alinity i Chemiluminescent Microparticle Immunoassay (CMIA) Microalbumin, Random Reviewed date:04/03/2025 06:51:34 PM Interpretation: Performing Lab:[address] [phone] Notes/Report: Creatinine Urine 121.14 Microalbumin Urine 173.0 Microalbum/Creatinine Ratio Ur 142.8 <30 ug/mg cr Albumin/Creatinine Ratio Reference Ranges: Normal: < 30 ug/mg creatinine Microalbuminuria: 30 - 300 ug/mg creatinine Clinical Albuminuria: > 300 ug/mg creatinine Hemoglobin A1c Reviewed date:04/03/2025 06:49:55 PM Interpretation: Performing Lab:[address] [phone] Notes/Report: Hemoglobin A1c % 5.3 <6.0 % Hemoglobin A1C Reference Range Adults: 4.8 - 6.0 % Non diabetic: < 6.0 % Goal: < 7.0 % Additional Action Suggested: > 8.0 % Note: Hemoglobin A1c results are invalid for patients with abnormal amounts of HbF. Blood transfusions may impact the HbA1c concentration in the patient sample. Estimated Average Glucose 105 eAG = Estimated average glucose which is %A1C expressed as average glucose, using the formula of the W7P-Urnplej Average Glucose study (ADAG), Diabetes Care, Vol.31,#8, May. 2007 UA ClnCatch+Micro w/rflx Cul t Reviewed date:04/03/2025 06:52:05 PM Interpretation: Performing Lab:[facility], [address] [place] [phone] Notes/Report: Urine, Clean Catch Color Urine Yellow Appearance Urine Clear PH 5.5 5.0-9.0 Glucose Urine UA Negative Negative mg/dL Urine Blood Moderate (2+) Negative Specific [place] - Urine 1.015 1.005-1.025 Urine Protein 30 (1+) Neg-Trace mg/dL Urine Ketones Negative Negative mg/dL Nitrite Urine Negative Negative Leukocyte Esterase Urine Trace Negative RBC Urine 11-20 0-2 /HPF WBC Urine 0-5 0-5 /HPF Squamous Epithelial Cell Urine 3-5 0-2 /HPF Bacteria Urine None Seen None Seen Hyaline Casts Urine 3-5 0-2 /LPF Complete Blood Count no Diff Reviewed date:07/16/2025 07:17:13 AM Interpretation:07-14-2025 Performing Lab:[facility], [address] [place] [phone] Notes/Report: White Blood Count 5.2 4.8-10.8 X10*3/uL Red Blood Count 4.75 4.60-5.80 X10*6/uL Hemoglobin 15.0 14.0-18.0 g/dl Hematocrit 44.3 42.0-52.0 % Mean Corpuscular Volume 93.3 80.0-98.0 fL Mean Corpuscular Hemoglobin 31.6 27.0-33.0 pg Mean Corpuscular HGB Conc 33.9 31.0-36.0 g/dl Red Cell Distribution Width 14.7 11.0-16.0 % Platelet Count 122 160-400 X10*3/uL Mean Platelet Volume 11.5 9.4-12.4 fL NRBC Pct Auto 0.0 0.0-0.2 /100WBC NRBC Abs Auto 0.000 0.0-0.012 X10*3/uL Urinalysis and Microscopic Reviewed date:06/12/2025 12:40:52 PM Interpretation: Performing Lab:[facility], [address] [place] [phone] Notes/Report: Color Urine Yellow Appearance Urine Clear PH 5.0 5.0-9.0 Glucose Urine UA Negative Negative mg/dL Urine Blood Moderate (2+) Negative Specific [place] - Urine 1.015 1.005-1.025 Urine Protein 30 (1+) Neg-Trace mg/dL Urine Ketones Negative Negative mg/dL Nitrite Urine Negative Negative Leukocyte Esterase Urine Trace Negative RBC Urine 0-2 0-2 /HPF WBC Urine 0-5 0-5 /HPF Squamous Epithelial Cell Urine 6-10 0-2 /HPF Other Crystals Urine Present Bacteria Urine None Seen None Seen Hyaline Casts Urine 0-2 0-2 /LPF Basic Metabolic Panel Reviewed date:06/12/2025 12:43:58 PM Interpretation: Performing Lab:[facility], [address] [place] [phone] Notes/Report: Sodium 142 135-145 mmol/L Potassium 4.7 3.3-5.1 mmol/L Chloride 110 96-108 mmol/L Carbon Dioxide 24 22-29 mmol/L Anion Gap 13 12-20 Blood Urea Nitrogen 23 9-16 mg/dL Creatinine 1.24 0.5-1.4 mg/dL Estimated Glomerular Filt Rate 57 Chronic Kidney Disease: Estimated GFR < 60 mL/min/1.73m2 Severe Kidney Disease: Estimated GFR < 15 mL/min/1.73m2 Glucose Random 99 60-115 mg/dL Calcium 9.0 8.4-10.2 mg/dL Creatinine Urine Reviewed date:06/12/2025 12:41:44 PM Interpretation: Performing Lab:[facility], [address] [place] [phone] Notes/Report: Creatinine Urine 103.58 Total Protein Urine Random Reviewed date:06/12/2025 12:34:03 PM Interpretation: Performing Lab:[address] [phone] Notes/Report: Total Protein Urine Random 29 <12 mg/dL Reason For Referral No Information Medications Medication SIG (Take, Route, Frequency, Duration) Notes Start Date End Date Status Metoprolol Succinate ER 200 MG TAKE 1 TABLET BY MOUTH EVERY DAY Orally Once a day Active dilTIAZem HCl ER 240 MG 1 capsule on an empty stomach in the morning Orally Once a day Active Timolol Maleate 0.5 % 1 drop into affect ed eye Ophthalmic Once a day Active Indomethacin 50 MG 1 capsule with food Orally Three times a day for 14 days 09/12/2013 Not-Taking Diltiazem CD 180 MG 1 capsule Orally Onc e a day Not-Taking Tamsulosin HCl 0.4 MG TAKE 1 CAPSULE BY MOUTH EVERY DAY for 30 Active Loperamide HCl 2 MG 1 capsule as needed Orally Four times a day Not-Taki ng Acetaminophen 500 MG 2 tablet as needed every 6 hours Not-Taking Allopurinol 100 MG 1 tablet Orally Once a day Active Cinacalcet HCl 30 MG 1 tablet with food or after a meal Orally Once a day for 30 day(s) Active Ferrous Sulfate 325 (65 Fe) MG 1 tablet Orally Once a day Active Triamcinolone Acetonide 0.1 % 1 application Externally Two times a Week Active Benefiber - Orally Not-Taki ng Immunizations Vaccine Route Administration Date Status Comme nts Flu Vaccine Unknown 11/08/2012 Administered [facility] Fluarix Quadrivalent IM Intramuscular 09/02/2018 Administe red Prevnar 13 Unknown 09/30/2018 Administered [facility] Influenza High Dose IM Intramuscular 09/01/2019 Administer ed pt had the vaccine at [facility] in [place]. 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 confirmed Problem 93407742 Kidney stone (N20.0) Active confirmed Problem 28185920 Essential hypertension (I10) Active confirmed Problem 8584796 Prediabetes (R73.09) Active confirmed Problem 608194658 Low HDL (under 4 0) (E78.6) Active confirmed Problem 13584061 Hyperparathyroid ism (E21.3) Active confirmed Problem 81805989 Proteinuria (R80.9) Active confirmed Problem Iron deficiency anemia (95230693) Other iron deficiency anemia (D50.8) Active confirmed Problem Metastatic cancer (028866155) Metastatic cancer (C80.1) Active confirmed Problem 14725326 Kidney stones (N20.0) Active confirmed Problem 09481805 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 Problem 791519601 BMI 34.0-34.9,ad ult (Z68.34) Active confirmed Problem 434995333 Stage 2 chronic kidney disease (N18.2) Active confirmed Problem 73789376 Bladder stone (N21.0) Active confirmed Problem 30678048 Hydronephrosis w ith urinary obstruction due to ureteral calculus (N13.2) Active confirmed Problem 174519670 Pancreatic mass (K86.89) Active confirmed Problem 347594641 Chronic atrial fibrillation (I48.20) Active confirmed Problem 131829278 Tophi gouty (M1A.9XX1) Active confirmed Problem 98558036 Visual hallucina tion (R44.1) Active confirmed Problem 39274866 Bladder stones (N21.0) Active confirmed Vital Signs Blood pressure diastolic 70 mm Hg 10/13/2025 andrez ght is up 4 pounds since 04-13-25 Height 75 in 10/13/2025 weight is up 4 pounds since 04-13-25 Blood pressure systolic 122 mm Hg 10/13/2025 weig ht is up 4 pounds since 04-13-25 Weight 214 lbs 10/13/2025 weight is up 4 pounds since 04-13-25 BMI 26.75 kg/m2 10/13/2025 weight is up 4 pounds since 04-13-25 Encounters Encounter Location Date Provider Diagnosis Jass Mota MD [address] [place] [address] Drive [address] [place] [phone] 10/13/2025 Jass Mota Paroxysmal atrial fibrillation I48.0 ; Essential hypertension I10 ; Tophi gouty M1A.9XX1 and Prediabetes R73.09 Jass Mota MD [address] [place] [address] Drive [address] [place] [id number] 04/13/2025 Jass Mota Thrombocytopenia D69 .6 ; [...] need notes from dr sherley vicente at [facility] cardiology/ not taking anticoagulant and is rolling the dice./ will send for records 10/13/2025 Essential hypertension (ICD-10 - I10) stable, will continue current medication 04/13/2025 Thrombocytopenia (ICD-10 - D69.6) stable will continue to monitor 04/13/2025 Pancreatic mass (ICD-10 - K86.89) already has mri ordered for next february, will continue to monitor 10/13/2025 Tophi gouty (ICD-10 - M1A.9XX1) Order faxed to [place] [facility] lab Patient notified 04/13/2025 Essential hypertension (ICD-10 - I10) stable, will continue current regiment 10/13/2025 Prediabetes (ICD-10 - R73.09) stable, no need for medication at this time 04/13/2025 Paroxysmal atrial fibrillation (ICD-10 - I48.0) [...] - Z13.31) negative screen Plan Of Treatment Pending Test Test Name Order Date Electrocardiogram (EKG) 04/03/2019 MRI ABD W&WO CONTRAST 02/12/2024 MRI BRAIN NO CONTRAST 02/12/2024 US RENAL BILATERAL 04/14/2022 Uric Acid 10/13/2025 Future Test Test Name Order Date MRI ABD W&WO CONTRAST 08/05/2021 Next Appt Details Provider Name:Jass Jolley ier, 04/13/2026 07:15:00 AM, [address] [place] [address], [address], [phone], Provider Name:Jass Braulio Shola ier, 04/20/2026 01:00:00 PM, [address] [place] [address], [address], [phone], Insurance Providers Payer Name Payer Address Payer Phone Subscriber Number Group Number Insured Name Patient Relationship to Insured Coverage Start Date Coverage End Date MEDICARE NHIC [address] [place] [address] [id number] RACHAEL HAMILTON Self - patient is the insured [employer] [place] [address] [place] [address] [id number] RACHAEL HAMILTON Self - patient is the insured Medical (General) History Medical History History ICD Code discussed colonoscopy 2011 and 2013,2016 refused again in 2017; colonoscopy done 02/14/[address] Garcia - repeat 5 years urology w/u for hematuria with cysto and ct 2019 thyroid nodule biopsied and was neg
== END 2025-10-14 11:42 | disposition home or self-care (01) ==
LOC: HO.HMGCLDS 11:41
PROVIDERS: PCP Internal Medicine; Visit Provider Internal Medicine
DX: M1A.9XX1 Chronic gout, unspecified, with tophus (tophi) (principal)
CPT/HCPCS: 36415; 84550